=== PATIENT | male | born 1945 | race Caucasian/White ===

== ENCOUNTER → 2016-08-13 | Day surgery (SDC) | payer MEDICARE, OTHER ==
[2016-08-01 12:12] VITALS: BMI 29.0
[~2016-08-13] MED LIST: LACTATED RINGERS 1,000 ML IV SCH; PROPOFOL 10 MG/ML 20 ML VIAL IV ONE; SODIUM CHLORIDE 0.9% 1,000 ML BAG ONE; SODIUM CHLORIDE 0.9% 1,000 ML IV ONE
[2016-08-13 06:12] VITALS: TEMP 97.7
[2016-08-13 07:12] VITALS: PULSE 60
--- NOTE | 2016-08-13 08:39 | LTR ---
August 13, 2016 RE: Sarkis Waterman Dion Dear Dr. Jj; I had the pleasure of seeing . Sarkis Waterman in electrophysiology followup. Sarkis underwent DFT testing under anesthesia. His DFT is at or below 11 joules. His device is also reprogrammed appropriately. The device was interrogated. He had an episode of ventricular tachycardia where antitachycardia pacing failed and he lost consciousness. Subsequently, received an ICD shock which he does not remember. Therefore, I have started him on sotalol 80 mg twice daily and I would recommend noninvasive program stimulation to see if he has inducible VT. If he continues to have inducible VT on antiarrhythmic drug therapy, then VT ablation should be considered, especially since he had a syncopal spell associated with it. I spoke to the patient and to his and they are agreeable with the plan. I will also draw a TSH level on him today. Thank you for entrusting me with the care of your patient. Warm regards. Sincerely, KESHAWN GAMEZ MD
--- NOTE | 2016-08-13 09:07 | CE ---
DFT TESTING AND Bi-V ICD INTERROGATION AND REPROGRAMMING DATE OF SERVICE: Mr. Sarkis Waterman has a [employer] biventricular ICD, antigen [employer]-[id number]. He is brought in for DFT testing under anesthesia. Shock and T-wave protocol was used to induce ventricular fibrillation. This was adequately and appropriately detected at least sensitivity and successfully internally defibrillated with an 11 joule shock at first attempt. The charge time was 1.9 seconds, shocking impedance 38 ohms, initial lead polarity. The device was then reprogrammed according to the ( ) protocol. The device was initially interrogated. He had an episode of ventricular tachycardia at a cycle length of 313 beats a minute, which began with 6 to 7 beats which were ventricular tachycardia at a cycle length of about 310 to 320 ms. It was initiated by a short burst of nonsustained VT which is somewhat irregular. Antitachycardia pacing failed, in fact it accelerated it to a cycle length of 250 ms and then he received a 31 joule shock. He passed out at that time and does not remember this. His atrial RV and LV thresholds are within normal limits. The device was also reprogrammed with LV pacing first at -50 ms according to the ( ) recommendations. PLAN: Start sotalol 80 mg twice daily for suppression of ventricular tachycardia and noninvasive program stimulation in about a month and if he has inducible ventricular tachycardia, then VT ablation would be recommended. I discussed this with the patient as well as his .
[2016-08-13 10:09] VITALS: RESP 20
[2016-08-13 10:12] VITALS: BP 130/72
== END ==
LOC: CATHEP 05:52
PROVIDERS: ATTEND Internal Medicine Clinical Cardiac Electrophysiology
DX: I47.2 Ventricular tachycardia (principal); Z45.02 Encounter for adjustment and management of automatic implantable cardiac defibrillator; R55 Syncope and collapse; I25.5 Ischemic cardiomyopathy; I25.10 Atherosclerotic heart disease of native coronary artery without angina pectoris; I10 Essential (primary) hypertension; Z87.891 Personal history of nicotine dependence; Z98.61 Coronary angioplasty status; Z95.1 Presence of aortocoronary bypass graft; E78.5 Hyperlipidemia, unspecified; Z79.82 Long term (current) use of aspirin; Z79.899 Other long term (current) drug therapy
CPT/HCPCS: 93642; 84443; J2704

== ENCOUNTER → 2016-09-12 | Outpatient (CLI) | payer MEDICARE, OTHER ==
[2016-09-12 15:44] LABS: CH 32.3; CHCM 33.6; HCT 39.6 % (39.0-53.0); HDW 2.46; HGB 13.2 gm/dL (13.0-17.5); MCH 32.2 pg (25.0-35.0); MCHC 33.3 g/dL (31.0-37.0); MCV 96.7 fL (80.0-100.0); RDW 13.1 % (11.5-15.5); WBC 5.5 k/uL (3.8-10.6)
[2016-09-12 15:58] LABS: Anion Gap 9 mmol/L; Blood Urea Nitrogen 20 mg/dL (9-20); Carbon Dioxide 29 mmol/L (22-30); Chloride 105 mmol/L (98-107); Glucose 116 mg/dL (74-99); Non-African American GFR(MDRD) >60 (>60 ml/min/1.73 sqM); Potassium 4.5 mmol/L (3.5-5.1); Sodium 143 mmol/L (137-145)
== END | disposition home or self-care (01) ==
LOC: LABWHC1 15:12
PROVIDERS: ATTEND Internal Medicine Interventional Cardiology
DX: I25.10 Atherosclerotic heart disease of native coronary artery without angina pectoris (principal); I47.2 Ventricular tachycardia
CPT/HCPCS: 36415; 80048; 85027

== ENCOUNTER 2016-09-30 06:07 | Day surgery (SDC) | payer MEDICARE, OTHER ==
[2016-09-27 08:51] VITALS: BMI 29.4
[2016-09-30] MEDS ORDERED: SODIUM CHLORIDE 0.9% 1,000 ML IV SCH (06:09)
[2016-09-30] MEDS ORDERED: LACTATED RINGERS 1,000 ML IV SCH (06:09)
[2016-09-30 06:27] VITALS: RESP 16
[2016-09-30] MEDS ORDERED: LIDOCAINE 1% INJ 10MG/ML (20 ML MDV) ONE (07:13)
[2016-09-30] MEDS ORDERED: PROPOFOL 10 MG/ML 20 ML VIAL IV ONE (07:13)
[2016-09-30] MEDS ORDERED: MIDAZOLAM 2 MG/2 ML VIAL ONE (07:13)
[2016-09-30] MEDS ORDERED: PHENYLEPHRINE-0.9% NACL SYG 1 MG/10 ML SYRINGE ONE (07:13)
[2016-09-30] MEDS ORDERED: fentaNYL (PF) 50 MCG/ML 2 ML AMP ONE (07:13)
[2016-09-30 08:34] VITALS: TEMP 96.8
[2016-09-30 08:37] VITALS: PULSE 60
--- NOTE | 2016-09-30 09:13 | CE ---
DATE OF SERVICE: Mr. Waterman is a 71-year-old male patient who presented with recurrent episodes of ventricular tachycardia. He was started on sotalol 80 mg twice daily today. Today he was brought in for noninvasive program stimulation to see if he had inducible ventricular tachycardia. Under light conscious sedation, he underwent noninvasive program stimulation through the device. The device was interrogated. The original ventricular tachycardia was printed out for comparisons ( ) programed. The ( ) were reprogramed at first shock and the VT zone at 5 joules. The patient QRS was 198 milliseconds. QT was 532 milliseconds. Ventricular extrastimulation was performed up to double extrastimuli and the ventricular ART is 600/330/250 milliseconds and 450/310/250. No ventricular tachycardia was induced. No nonsustained VT was induced. Burst stimulation was performed from 450 down to 300 ms without induction of any VT. Patient tolerated the procedure well without any acute complications. His ICD was then reprogrammed. The first shock in the VT1 zone was reprogrammed to 11 joules. RESULT: 1. This patient with ischemic cardiomyopathy and exertion induced ventricular tachycardia now on sotalol 80 mg twice daily in addition to carvedilol. 2. Noninducible at program stimulation (noninvasive program stimulation) while on sotalol. No inducible VT for now. SUGGEST: 1. Continue sotalol, carvedilol and losartan. 2. Consider low dose spironolactone instead of Lasix and monitor potassium. 3. Patient's TSH is normal. If in the future, he has ( ) episodes of ventricular tachycardia, then VT ablation should be considered. MTDD
--- NOTE | 2016-09-30 09:17 | LTR ---
September 30, 2016 RE: Sarkis Waterman Dear Dr. Jj: I had the pleasure of seeing Mr. Sarkis Waterman in electrophysiology follow up. As you know. Mr. Waterman has ischemic cardiomyopathy with spontaneous exercise-induced ventricular tachycardia associated with dizziness. He was treated with sotalol 80 mg twice daily in addition to carvedilol and Losartan. He was brought in for noninvasive program stimulation via the device and he was noninducible for ventricular tachycardia, on sotalol 80 mg twice daily. His TSH is normal. At this time, I would suggest: 1. Continuing with sotalol. His blood pressure at home is around 110 mmHg systolic according to the patient. 2. If he has breakthrough episodes on sotalol, ablation for ventricular tachycardia should be considered. Thank you for entrusting me in the care of your patient. Warm regards, Sincerely, KESHAWN TAVERAS
[2016-09-30 10:17] VITALS: BP 106/65
--- NOTE | 2016-10-03 09:08 | CDI ---
Pt Name: Sarkis Waterman CONFIDENTIAL MR#: [id number] Adm Date: 09/30/2016 6:07:00 AM Printed:10/03/2016 Physician Documentation Request Page 1 of 2 ICD-10-CM Ready Physicians Documentation Request Patient: Sarkis Waterman EPI: [id number] Account: [id number] Payer: MEDICARE Facility: [facility] Location: - Admit Date: 09/30/2016 6:07:00 AM Query Send By: Shabnam Gayle Phone #: Ext. Communication Date: 10/03/2016 9:02:00 AM Clarification Outpatient By submitting this query, we are merely seeking further clarification of documentation to accurately reflect all conditions that you are monitoring, evaluating, treating or that extend the hospitalization or utilize additional resources of care. Please utilize your independent clinical judgment when addressing the question(s) below. Dear Doctor Mark Napier, The patients Clinical Indicators include: see below Documentation Clarification OP Per your procedure note, Light Conscious Sedation is documented. The Anesthesia Record, however, has MAC checked off under technique. This is conflicting documentation that needs clarification for proper reporting purposes. Please clarify if the anesthesia provided was Conscious/Moderate Sedation or other? Please document this clarification on an addendum to the procedure note. PLEASE DOCUMENT ANY ADDITIONAL DIAGNOSES AND/OR SPECIFICITY IN THE PROGRESS NOTES AND/OR DISCHARGE SUMMARY. Agreed & documented Unable to determine/unknown Disagree with the above request Need to discuss MTDD
--- NOTE | 2016-10-21 20:56 | CDI ---
Pt Name: Sarkis Waterman CONFIDENTIAL MR#: [id number] Adm Date: 09/30/2016 6:07:00 AM Printed:10/21/2016 Physician Documentation Request Page 2 of 2 ICD-10-CM Ready Physicians Documentation Request Patient: Sarkis Waterman EPI: [id number] Account: [id number] Payer: MEDICARE Facility: [facility] Location: - Admit Date: 09/30/2016 6:07:00 AM Query Send By: Shabnam Gayle Phone #: Ext. Communication Date: 10/21/2016 8:54:00 PM Clarification Outpatient By submitting this query, we are merely seeking further clarification of documentation to accurately reflect all conditions that you are monitoring, evaluating, treating or that extend the hospitalization or utilize additional resources of care. Please utilize your independent clinical judgment when addressing the question(s) below. Dear Doctor Mark Napier, The patients Clinical Indicators include: see below Documentation Clarification OP Per your procedure note, Light Conscious Sedation is documented. The Anesthesia Record, however, has MAC checked off under technique. This is conflicting documentation that needs clarification for proper reporting and coding purposes. Please clarify if the anesthesia provided was Conscious/Moderate Sedation or something else. If so, what? Please document this clarification on an addendum to the procedure note. PLEASE DOCUMENT ANY ADDITIONAL DIAGNOSES AND/OR SPECIFICITY IN THE PROGRESS NOTES AND/OR DISCHARGE SUMMARY. Agreed & documented Unable to determine/unknown Disagree with the above request Need to discuss MTDD
--- NOTE | 2016-11-01 11:40 | CE ---
ADDENDUM TO CARDIAC PROCEDURE NOTE: MAC sedation by anesthesia was not light conscious sedation.
== END 2016-09-30 10:35 | disposition home or self-care (01) ==
LOC: CATHEP 06:07
PROVIDERS: ATTEND Internal Medicine Clinical Cardiac Electrophysiology
DX: I47.2 Ventricular tachycardia (principal); I25.5 Ischemic cardiomyopathy; I10 Essential (primary) hypertension; Z95.810 Presence of automatic (implantable) cardiac defibrillator; E78.00 Pure hypercholesterolemia, unspecified; E78.5 Hyperlipidemia, unspecified; I25.10 Atherosclerotic heart disease of native coronary artery without angina pectoris; Z98.61 Coronary angioplasty status; Z95.1 Presence of aortocoronary bypass graft; I25.2 Old myocardial infarction; Z79.82 Long term (current) use of aspirin; Z79.899 Other long term (current) drug therapy; Z87.891 Personal history of nicotine dependence
CPT/HCPCS: 93642; J2250; J2001; J3010; J2370; J2704

== ENCOUNTER → 2017-09-18 | Outpatient (CLI) | payer MEDICARE, OTHER ==
[2017-09-17 11:58] VITALS: BMI 28.5
[2017-09-18 11:37] VITALS: BP 154/74; PULSE 62; RESP 18; TEMP 98.3
--- NOTE | 2017-09-18 12:25 | P.CONS ---
History of Present Illness - Reason for Consult Consult date: 09/18/17 - History of Present Illness 72 years old male with a chronic history of severe neck pain started 5 years ago , he denies any initiating event, and he reported that he was evaluated by Dr. Emeka DO , and he did interventional pain management for him diagnostic medial branch block 2 C2-3 /C3-4 /C4-5 , on 2 different occasions and he get excellent pain relief, and he was referred to [facility] pain clinic to have radiofrequency ablation of the medial paracervical area because patient had AICD , because the anesthesiologist at the surgical Center refused to have it done ,at outpatient surgical center , patient already familiar with the procedure, Dr. Hendrickson explained to him about the risk and benefits of the procedure, and patient willing to proceed Past Medical History Past Medical History: Coronary Artery Disease (CAD), Cancer, Heart Failure, Hyperlipidemia, Hypertension, Myocardial Infarction (PR), Osteoarthritis (OA), Pneumonia Additional Past Medical History / Comment(s): arrythmia(past epidodes v-tach), PR X2. HX past bladder cancer. POS hiatal hernia. CHRONIC CERVICAL PAIN. AICD/ PACER - [employer]. Last Myocardial Infarction Date:: 1994 History of Any Multi-Drug Resistant Organisms: None Reported Past Surgical History: AICD, Back Surgery, Cardiac Ablation, Coronary Bypass/ CABG, Orthopedic Surgery, Pacemaker Additional Past Surgical History / Comment(s): tumor removed from bladder, ep study, past cardioversion/ ablation X2 - LAST 06/2017. DB CABG 1985. tube lt ear 2007, lt rotator cuff sx, pilonidal cyst removed, letty knee arthroscopy Past Anesthesia/Blood Transfusion Reactions: No Reported Reaction Type of Cardiac Device: AICD Device Placement Date:: 04/2013 - [employer] Smoking Status: Former smoker - Past Family History Mother Family Medical History: Cancer Additional Family Medical History / Comment(s): breast cancer Father Family Medical History: Myocardial Infarction (PR) Additional Family Medical History / Comment(s): age 46 from [place] ( 4 months beofre pt was born) Medications and Allergies Home Medications Medication Instructions Recorded Confirmed Type Ascorbic Acid [Vitamin C] 500 mg PO DAILY 03/10/16 09/18/17 History Aspirin 162 mg PO HS 03/10/16 09/18/17 History Atorvastatin [Lipitor] 40 mg PO HS 03/10/16 09/18/17 History Calcium/Magnesium/Zinc 1 tab PO DAILY 03/10/16 09/18/17 History [Rwyaxwt-Hwsjehysr-Bkch Tablet] Carvedilol [Coreg] 6.25 mg PO BID 03/10/16 09/18/17 History Furosemide [Lasix] 20 mg PO DAILY 03/10/16 09/18/17 History Gabapentin [Neurontin] 400 mg PO TID 03/10/16 09/18/17 History Losartan [Cozaar] 25 mg PO DAILY 03/10/16 09/18/17 History Ubidecarenone [Co Q-10] 100 mg PO DAILY 03/10/16 09/18/17 History Acetaminophen [Tylenol] 325 - 500 mg PO Q4H PRN 08/01/16 09/18/17 History Vitamin B Complex 1 cap PO DAILY 08/01/16 09/18/17 History Isosorbide Mononitrate ER [Imdur] 30 mg PO DAILY tab.er.24h 06/06/17 09/18/17 Rx B Complex-Vit C-Vit E-Zinc [Z-Bec] 1 tab PO DAILY 09/17/17 09/18/17 History Allergies Allergy/AdvReac Type Severity Reaction Status Date / Time No Known Allergies Allergy Verified 09/18/17 11:26 Physical Exam Vitals: Vital Signs Temp Pulse Resp BP 09/18/17 11:30 98.3 F 62 18 154/74 Intake and Output 09/17/17 09/18/17 09/18/17 22:59 06:59 14:59 Other: Weight 92.986 kg Patient Weight 09/19/17 06:59 Weight 92.986 kg Social history : not smoker , NO ETOH , NO Illegal drugs use Physical Examinations : 1-Constitutional : Cooperative , not in acute distress . 2-HEENT : nech ; supple , no Lymphadenopathy , no Thyromegaly , :eyes , no icterus, no photophobia . ENT : , normal oropharynx , no Thrush 3- Respiratory : Chest clear to auscultations Bilaterally , no wheezing . 4- Cardiovascular : regular rate and rhythem , S1 , S2 , no S3 , no S4. 5- Gastrointestinal: abdomen soft no tenderness , no organomegally . 6- Genitourinary : Defferred . 7-Integumentary : No cellulitis , no ulcers , normal skin turgor , no cyanotic . 8- neurologic : Cranial nerve II to XII intact , no focal neurological deffecit 9-psychatric : alert , oriented X 3 , appropriate affect , intact judgment and insight . 10-Lymphatic : no Lymphadenopathy. 11- musculoskeltal: normal gait Cervical Spine motor stregnth in the deltoid and biceps, normal right side , normal Left side motor stregnth biceps and the wrist extensors normal right side ,normal left side . motor stregnth in the triceps muscle . normal Right side , normal Left side deep tendon reflexes normal at the biceps , normal at Brachioradialis , normal at triceps. positive cervical facet loading test . Lumber spine moter stegnth lower extremities ,thigh and legs 5/5 Right side , 5/5 Left side Assessment and Plan Plan: Assessment and plan= chronic severe neck pain secondary to cervical spondylosis patient had a good result after diagnostic medial branch block He had more than 70% decrease in his pain level on 2 different occasions , He will be scheduled to have radiofrequency ablation medial branch cervical area C2 3/C3 4/C4 5 , will start from the left side,and later on will do the right side , procedure risks and benefits and alternatives discussed with the patient he agreed with the preceding Time with Patient: Less than 30
== END | disposition home or self-care (01) ==
LOC: PNWHC3 11:12
PROVIDERS: ATTEND Specialist
DX: G89.29 Other chronic pain (principal); M54.2 Cervicalgia; M47.812 Spondylosis without myelopathy or radiculopathy, cervical region; I21.9 Acute myocardial infarction, unspecified; I10 Essential (primary) hypertension; E78.5 Hyperlipidemia, unspecified; I50.9 Heart failure, unspecified; Z79.899 Other long term (current) drug therapy; Z79.82 Long term (current) use of aspirin; Z87.891 Personal history of nicotine dependence
CPT/HCPCS: 99211

== ENCOUNTER → 2017-10-23 | Day surgery (SDC) | payer MEDICARE, OTHER ==
[2017-10-20 10:27] VITALS: BMI 29.0
[~2017-10-23] MED LIST changes: +IV FLUID CONTINUATION 1,000 ML IV ONE; +LACTATED RINGERS 1,000 ML IV ONE; +LIDOCAINE 1% 20 ML VIAL (10MG/ML) FOR IV START INTRADERMA ONE; -PROPOFOL 10 MG/ML 20 ML VIAL IV ONE; -SODIUM CHLORIDE 0.9% 1,000 ML BAG ONE; -SODIUM CHLORIDE 0.9% 1,000 ML IV ONE
[2017-10-23 08:45] VITALS: RESP 16; TEMP 97.8
--- NOTE | 2017-10-23 09:58 | FL ---
Fluoroscopy INDICATION: Pain FINDINGS: Fluoroscopy time: 15 seconds. Images obtained: 3. IMPRESSIONS: 1. Documentation of fluoroscopy.
[2017-10-23 10:01] VITALS: PULSE 60
[2017-10-23 10:16] VITALS: BP 110/66
--- NOTE | 2017-10-28 10:32 | P.PCN ---
Date of Procedure: 10/23/17 Surgeon: Clark Camp Pathology: none sent Condition: stable Disposition: PACU Description of Procedure: PREOPERATIVE DIAGNOSIS: Cervical spondylosis without myelopathy and facet arthropathy. POSTOPERATIVE DIAGNOSIS: Cervical spondylosis without myelopathy and facet arthropathy. PROCEDURES: Radiofrequency thermocoagulation, C2-C3, C3-C4, C4-C5 medial branch , with fluoroscopic guidance, left side. ANESTHESIA: Local with 1% lidocaine; conscious sedation EBL: Minimal PROCEDURE INDICATION: The patient with neck pain secondary to cervical arthropathy who had more than 50% relief of her pain with previous diagnostic cervical medial branch block. No use of blood thinners. Patient has had two cervical MBBs done by Dr. Hendrickson with relief, presents today for cervical RFA , to be done in hospital due to patient's pacer/AICD, whose antitachycardia function was deactivated with a magnet prior to beginning procedure. PROCEDURE DESCRIPTION / TECHNIQUE: The patient was seen and identified in the preoperative area. Risks, benefits, complications, and alternatives were discussed with the patient (with risks including but not limited to bleeding, infection, nerve damage, incomplete pain relief, and allergic reactions to medications), the patient agreed to proceed with the procedure and signed the informed consent after all questions were answered. IV was started. Vital signs remained stable throughout the procedure. Patient was taken to the OR and time out was completed. The patient was placed in the prone position on the procedure table. A pillow was placed under the patients chest to increase the cervical interlaminar space. The cervical area was prepped and draped in the usual sterile fashion. Critical pause was taken. Vital signs were closely monitored during the procedure. Conscious sedation was used during the procedure to decrease patients anxiety. Using cross-table lateral fluoroscopy, the centroid of the trapezoid of C2, C3, C4, and C5 were identified, marked, and localized with 1% lidocaine. Subsequently, a 20 gauge 100-mm radiofrequency cannula with a 5-mm active tip was advanced guided by fluoroscopy to the centroid of the trapezoid of C2, C3, and C4. Needle tip position was confirmed at the centroid of the trapezoids of all three sites with anteroposterior fluoroscopy. Each site then underwent sensory testing at 50 Hz and 0 to 1 volt and motor testing at 2 Hz and 0 to 3 volt with local stimulation, but no radicular symptoms down the arm. Thereafter all three sites underwent radiofrequency thermocoagulation at 80 degrees celsius for 90 seconds after injecting 0.5 ml of PF lidocaine 1%. After thermocoagulation, 1 ml of the block solution containing Kenalog 40 mg and 2 mL of preservative-free normal saline was injected at all three levels after negative aspiration of CSF and blood and with no paresthesias. Cannulas were retracted while injecting lidocaine 1% until the needle is out. Skin was cleansed and bandages were applied. COMPLICATIONS: No acute complications. COMMENTS: DISPOSITION / PLANS: The patient was placed in a supine position and transferred to the recovery area in a stable condition for observation and was discharged from the recovery room after meeting discharge criteria. Home discharge instructions given to the patient by the staff. The patient was reexamined prior to discharge and there were no issues. The patient will schedule a right cervical RFA next.
== END ==
LOC: ORPAIN 08:06
PROVIDERS: ATTEND Anesthesiology
DX: M47.812 Spondylosis without myelopathy or radiculopathy, cervical region (principal); Z79.899 Other long term (current) drug therapy; Z95.810 Presence of automatic (implantable) cardiac defibrillator; I10 Essential (primary) hypertension; I25.2 Old myocardial infarction; Z95.1 Presence of aortocoronary bypass graft
CPT/HCPCS: 64633; 64634; J2250; J1100; J3010; G0463; 99152; 99153

== ENCOUNTER 2017-11-24 09:01 | Day surgery (SDC) | payer MEDICARE, OTHER ==
[2017-11-18 08:27] VITALS: BMI 29.0
[2017-11-24 10:11] VITALS: RESP 16; TEMP 97.7
[2017-11-24] MEDS ORDERED: LACTATED RINGERS 1,000 ML IV ONE ×2 (10:11→11:04)
[2017-11-24] MEDS ORDERED: LIDOCAINE 1% 20 ML VIAL (10MG/ML) FOR IV START INTRADERMA ONE (10:12)
--- NOTE | 2017-11-24 11:01 | P.PCN ---
Date of Procedure: 11/24/17 Surgeon: Clark Camp Pathology: none sent Condition: stable Disposition: PACU Description of Procedure: PREOPERATIVE DIAGNOSIS: Cervical spondylosis without myelopathy and facet arthropathy. POSTOPERATIVE DIAGNOSIS: Cervical spondylosis without myelopathy and facet arthropathy. PROCEDURES: Radiofrequency thermocoagulation, C2-C3, C3-C4, C4-C5 medial branch , with fluoroscopic guidance, right side. ANESTHESIA: Local with 1% lidocaine; conscious sedation EBL: Minimal PROCEDURE INDICATION: The patient with neck pain secondary to cervical arthropathy who had more than 50% relief of her pain with previous diagnostic cervical medial branch block. No use of blood thinners. Patient has had two cervical MBBs done by Dr. Hendrickson with relief, presents today for cervical RFA on right side after good relief from left side; this procedure is to be done in hospital due to patient's pacer/AICD, whose antitachycardia function was deactivated with a magnet prior to beginning procedure. PROCEDURE DESCRIPTION / TECHNIQUE: The patient was seen and identified in the preoperative area. Risks, benefits, complications, and alternatives were discussed with the patient (with risks including but not limited to bleeding, infection, nerve damage, incomplete pain relief, and allergic reactions to medications), the patient agreed to proceed with the procedure and signed the informed consent after all questions were answered. IV was started. Vital signs remained stable throughout the procedure. Patient was taken to the OR and time out was completed. The patient was placed in the prone position on the procedure table. A pillow was placed under the patients chest to increase the cervical interlaminar space. The cervical area was prepped and draped in the usual sterile fashion. Critical pause was taken. Vital signs were closely monitored during the procedure. Conscious sedation was used during the procedure to decrease patients anxiety. Using cross-table lateral fluoroscopy, the centroid of the trapezoid of C2, C3, C4, and C5 were identified, marked, and localized with 1% lidocaine. Subsequently, a 21 gauge 100-mm radiofrequency cannula with a 5-mm active tip was advanced guided by fluoroscopy to the centroid of the trapezoid of C2, C3, and C4. Needle tip position was confirmed at the centroid of the trapezoids of all three sites with anteroposterior fluoroscopy. Each site then underwent sensory testing at 50 Hz and 0 to 1 volt and motor testing at 2 Hz and 0 to 3 volt with local stimulation, but no radicular symptoms down the arm. Thereafter all three sites underwent radiofrequency thermocoagulation at 80 degrees celsius for 90 seconds after injecting 0.5 ml of PF lidocaine 1%. After thermocoagulation, 0.75 ml of the block solution containing Decadron 10 mg and 1 mL of preservative-free normal saline was injected at all three levels after negative aspiration of CSF and blood and with no paresthesias. Cannulas were retracted while injecting lidocaine 1% until the needle is out. Skin was cleansed and bandages were applied. COMPLICATIONS: No acute complications. COMMENTS: DISPOSITION / PLANS: The patient was placed in a supine position and transferred to the recovery area in a stable condition for observation and was discharged from the recovery room after meeting discharge criteria. Home discharge instructions given to the patient by the staff. The patient was reexamined prior to discharge and there were no issues. The patient will follow up with Dr. Hendrickson and return to our clinic as needed in the future.
[2017-11-24 11:07] VITALS: PULSE 60
--- NOTE | 2017-11-24 11:28 | FL ---
EXAMINATION TYPE: FL guided pain mgmt statistic DATE OF EXAM: 11/24/2017 FLUOROSCOPY Fluoroscopy time of 11 seconds was used during cervical RF ablation. 2 image/s document/s the proced ure.
[2017-11-24 11:32] VITALS: BP 129/68
== END 2017-11-24 11:41 | disposition home or self-care (01) ==
LOC: ORPAIN 09:01
PROVIDERS: ATTEND Anesthesiology
DX: M47.812 Spondylosis without myelopathy or radiculopathy, cervical region (principal); Z95.810 Presence of automatic (implantable) cardiac defibrillator; E78.5 Hyperlipidemia, unspecified; I11.0 Hypertensive heart disease with heart failure; I50.9 Heart failure, unspecified
CPT/HCPCS: 64633; 64634; J2250; J1100; J3010; 99152

== ENCOUNTER → 2018-08-24 | Outpatient (CLI) | payer MEDICARE, OTHER ==
[2018-08-24 13:48] VITALS: BP 153/87; PULSE 60; RESP 16
--- NOTE | 2018-08-24 14:22 | P.PN ---
Subjective Progress Note Date: 08/24/18 This is a follow-up visit for this 73-year-old man with a chronic history of severe neck pain, diagnosed with cervical spondylosis, cervical facet arthropathy, patient had diagnostic medial [facility] block [facility], and he was referred to [facility] pain clinic to have radiofrequency ablation of the medial branch cervical area, which was done in October 2017, patient had excellent pain relief after the radiofrequency ablation which lasted 10 months, and the pain came back and he is here today to have repeat radiofrequency ablation of the medial branch cervical area, patient denies any motor or sensory deficits he denies any fever or night sweats he denies any change in the bowel movement or urination, Objective - Vital Signs Vital signs: Vital Signs Temp Pulse 60 08/24/18 13:42 Resp 16 08/24/18 13:42 BP 153/87 08/24/18 13:42 Pulse Ox 99 08/24/18 13:42 Intake & Output 08/23/18 08/24/18 08/24/18 18:59 06:59 18:59 Weight 92.986 kg - Exam Physical Examinations : 1-Constitutiona : Cooperative , not in acute distress . 2-HEENT : nech ; supple , no Lymphadenopathy , normal thyroid size . eyes : no ptosis , no icterus, no photophobia . ENT : normal of hearing , normal oropharynx , no Thrush . 3- Respiratory : Chest clear to auscultations Bilaterally , no wheezing , no Rhonchi . 4- Cardiovascular : regular rate and rhythem , S1 , S2 , no S3 , no S4. 5- Gastrointestinal : abdomen soft no tenderness , bowel sounds , no organomegally . 6- Genitourinary : Defferred . 7- neurologic : Cranial nerve II to XII intact , no focal neurological deffecit . 8-psychatric : alert , oriented X 3 , appropriate affect , intact judgment and insight . 9-Lymphatic : no Lymphadenopathy . 10- musculoskeltal : Cervical Spine motor stregnth in the deltoid and biceps, normal right side , normal Left side motor stregnth biceps and the wrist extensors normal right side ,normal left side . motor stregnth in the triceps muscle . normal Right side , normal Left side deep tendon reflexes normal at the biceps , normal at Brachioradialis , normal at triceps. positive cervical facet loading test . Lumber spine moter stegnth lower extremities , thigh and legs 5/5 Right side , 5/5 Left side Assessment and Plan Plan: Assessment and plan= chronic low back pain secondary to, cervical spondylosis with lumbar facet arthropathy . Patient had excellent pain relief after the radiofrequency ablation of the medial branch cervical area, and he will be good candidate to have radiofrequency ablation of the medial branch cervical C2-C3/C3-4/C4 5 , we will start on the left side first and with her parents and later on , patient had AICD , and we need to place a magnet over the device Procedure risk and benefits and alternatives discussed with the patient he agreed with proceeding. - PQRS measures = - Patient's medications are documented in the chart. -Tobacco use is negative and counseling.Given. -Patient's has not received pneumococcal vaccine. -Advanced care planning discussed, patient not eligible. -Opiate contract not signed.( Patient is not using any opioid ) -Pain positive and follow-up visit/procedure is scheduled. -Patient's blood pressure measured [153/87 ] , and documented in the record ,and patient will follow up with the primary care. -Patient's weight was measured and body mass index [29.4 ] above the, and counseling was done. and patient instructed to follow-up with the primary care physician. -Patient was not identified as an unhealthy alcohol user , Time with Patient: Less than 30
== END | disposition home or self-care (01) ==
LOC: PNWHC3 13:11
PROVIDERS: ATTEND Specialist
DX: G89.29 Other chronic pain (principal); M47.812 Spondylosis without myelopathy or radiculopathy, cervical region; M46.96 Unspecified inflammatory spondylopathy, lumbar region; Z98.890 Other specified postprocedural states
CPT/HCPCS: 99211

== ENCOUNTER → 2018-09-16 | Outpatient (CLI) | payer MEDICARE, OTHER ==
--- NOTE | 2018-09-16 10:32 | CT ---
EXAMINATION TYPE: CT brain wo/w con DATE OF EXAM: 09/16/2018 COMPARISON: 12/13/2012 INDICATION: Visual field defect-right side DLP: 2756 mGycm, Automated exposure control for dose reduction was used. CONTRAST: 100 mL Isovue-300 CT of the brain is performed utilizing 3 mm thick sections through the posterior fossa and 3 mm thick sections through the remaining calvarium. Study is performed within 24 hours of arrival to the hosp [facility]. No abnormal hyperdensity is present to suggest an acute intracranial hemorrhage. There is a stable appearance to the calcified rounded density within the right frontal region. Slight diminished density is within the adjacent brain. This area measures 0.3 x 1.9 cm. Findings may be be related to a stable meningioma. No acute infarcts are evident. There is low density surrounding the calcified mass. This is likely so me edema which is slightly more prominent than the comparison study. Ventricles and sulci are appropriate for the patient age. Paranasal sinuses and mastoid air cells within the [id number] are clear. Suspicious enhancement is not identified. IMPRESSIONS: 1. Stable size of a calcified mass right frontal region. 2. Some edema within the adjacent brain is likely present. This appears increased from the comparison study. Consider MRI for additional evaluation.
--- NOTE | 2018-09-16 13:39 | CT ---
EXAMINATION TYPE: CT orbits wo/w con DATE OF EXAM: 09/16/2018 COMPARISON: None HISTORY: Visual field defect-right side CT DLP: 378.26 mGycm Automated exposure control for dose reduction was used. CONTRAST: Performed without and with IV Contrast, patient injected with 100 ml mL of Isovue 300. FINDINGS: Mucosal thickenings within the right maxillary sinus. Left maxillary sinus is patent. Sphenoid sinuse s are clear. Some minimal mucosal thickening is within right ethmoid air cells. The frontal sinuses a re clear. Mastoid air cells are clear. Maxillary spine is intact. Nasal bones are intact. Greater wings of sphenoid are normal. Zygomatic ar ches are intact. The globes are symmetrical. Optic nerves appear unremarkable. Extraocular muscles as visualized are n ormal. Intraconal and extraconal fat appears unremarkable. No suspicious enhancement is evident. IMPRESSION: NORMAL PRE AND POSTCONTRAST CT ORBITS.
== END | disposition home or self-care (01) ==
LOC: RADXRMAIN 08:02
PROVIDERS: ATTEND Ophthalmology
DX: H53.483 Generalized contraction of visual field, bilateral (principal)
CPT/HCPCS: 82565; 84520; 70470; 70482; 36415; Q9967

== ENCOUNTER 2018-11-30 08:05 | Day surgery (SDC) | payer MEDICARE, OTHER ==
[2018-11-25 15:00] VITALS: BMI 29.4
[~2018-11-30 08:05] MED LIST changes: -IV FLUID CONTINUATION 1,000 ML IV ONE; -LACTATED RINGERS 1,000 ML IV ONE; -LIDOCAINE 1% 20 ML VIAL (10MG/ML) FOR IV START INTRADERMA ONE
[2018-11-30 08:26] LABS: Glucose,Whole Blood 102 mg/dL (75-99)
[2018-11-30 08:28] VITALS: TEMP 96.9
--- NOTE | 2018-11-30 09:12 | P.PCN ---
Date of Procedure: 11/30/18 Procedure(s) Performed: PREOPERATIVE DIAGNOSIS: Cervical spondylosis without myelopathy and facet arthropathy. POSTOPERATIVE DIAGNOSIS: Cervical spondylosis without myelopathy and facet arthropathy. PROCEDURES: Radiofrequency thermocoagulation, C2-C3, C3-C4, C4-C5 medial branch, with fluoroscopic guidance, left side. ANESTHESIA: Moderate sedation with Versed 2 mg, and fentanyl 100 g intravenously. EBL: Minimal PROCEDURE INDICATION: The patient with neck pain secondary to cervical arthropathy who had more than 50% relief of her pain with previous diagnostic cervical medial branch block. No use of blood thinners. Patient has had radi ofrequency ablation of the medial branch cervical area, and had excellent pain relief which is lasted more than 6 months,he presents today for repeate cervical RFA, patient's had pacer/AICD, whose antitachycardia function was deactivated with a magnet prior to beginning procedure. PROCEDURE DESCRIPTION / TECHNIQUE: The patient was seen and identified in the preoperative area. Risks, benefits, complications, and alternatives were discussed with the patient (with risks including but not limited to bleeding, infection, nerve damage, incomplete pain relief, and allergic reactions to medications), the patient agreed to proceed with the procedure and signed the informed consent after all questions were answered. IV was started. Vital signs remained stable throughout the procedure. Patient was taken to the OR and time out was completed. The patient was placed in the prone position on the procedure table. A pillow was placed under the patients chest to increase the cervical interlaminar space. The cervical area was prepped and draped in the usual sterile fashion. Critical pause was taken. Vital signs were closely monitored during the procedure. Conscious sedation was used during the procedure to decrease patients anxiety. Using cross-table lateral fluoroscopy, the centroid of the trapezoid of left C2, C3, C4, were identified, marked, and localized with 1% lidocaine. Subseq uently, a 20 gauge 100-mm radiofrequency cannula with a 5-mm active tip was advanced guided by fluoroscopy to the centroid of the trapezoid of left C2, C3, and C4. Needle tip position was confirmed at the centroid of the trapezoids of all three sites with anteroposterior fluoroscopy. Each site then underwent sensory testing at 50 Hz and 0 to 1 volt and motor testing at 2 Hz and 0 to 3 volt with local stimulation, but no radicular symptoms down the arm. Thereafter all three sites underwent radiofrequency thermocoagulation at 80 degrees celsius for 90 seconds after injecting 0.5 ml of PF lidocaine 1%. After thermocoagulation, 1 ml of the block solution containing Depo-Medrol 40 mg and 2 mL of preservative-free normal saline was injected at all three levels after negative aspiration of CSF and blood and with no paresthesias. Cannulas were retracted while injecting lidocaine 1% until the needle is out. Skin was cleansed and bandages were applied. note = magnet applied over the location of the AICD, before we do any testing and before with the radiofrequency, and a magnet removed after the radiofrequency was done COMPLICATIONS: No acute complications. DISPOSITION / PLANS: The patient was placed in a supine position and transferred to the recovery area in a stable condition for observation and was discharged from the recovery room after meeting discharge criteria. Home dischar ge instructions given to the patient by the staff. The patient was reexamined prior to discharge and there were no issues. The patient will schedule a right cervical RFA next.
[2018-11-30 09:14] VITALS: RESP 16
--- NOTE | 2018-11-30 09:19 | FL ---
Fluoroscopy INDICATION: Pain FINDINGS: Fluoroscopy time: 8 seconds. Images obtained: 2. IMPRESSIONS: 1. Documentation of fluoroscopy.
[2018-11-30 09:44] VITALS: BP 132/75; PULSE 60
[2018-11-30] MEDS ORDERED: IV FLUID CONTINUATION 1,000 ML IV ONE (09:59)
== END 2018-11-30 10:03 | disposition home or self-care (01) ==
LOC: ORPAIN 08:05
PROVIDERS: ATTEND Specialist
DX: M47.812 Spondylosis without myelopathy or radiculopathy, cervical region (principal); I11.0 Hypertensive heart disease with heart failure; I50.9 Heart failure, unspecified; I25.10 Atherosclerotic heart disease of native coronary artery without angina pectoris; Z95.810 Presence of automatic (implantable) cardiac defibrillator
CPT/HCPCS: 64633; 64634 ×2; J2250; J1030; J3010; 99152

== ENCOUNTER 2018-12-28 07:45 | Day surgery (SDC) | payer MEDICARE, OTHER ==
[2018-12-25 08:48] VITALS: BMI 29.1
[2018-12-28 08:10] VITALS: PULSE 60; RESP 16; TEMP 97.3
[2018-12-28] MEDS ORDERED: LIDOCAINE 1% 20 ML VIAL (10MG/ML) FOR IV START INTRADERMA ONE (08:19)
--- NOTE | 2018-12-28 09:40 | P.PCN ---
Date of Procedure: 12/28/18 Procedure(s) Performed: PREOPERATIVE DIAGNOSIS: Cervical spondylosis without myelopathy and facet arthropathy. POSTOPERATIVE DIAGNOSIS: Cervical spondylosis without myelopathy and facet arthropathy. PROCEDURES: Radiofrequency thermocoagulation, C2-C3, C3-C4, C4-C5 medial branch, with fluoroscopic guidance, Right side. ANESTHESIA: Moderate sedation with Versed 2 mg, and fentanyl 50 g intravenously. EBL: Minimal PROCEDURE INDICATION: The patient with neck pain secondary to cervical arthropathy who had more than 50% relief of her pain with previous diagnostic cervical medial branch block. No use of blood thinners. Patient has had ra diofrequency ablation of the medial branch cervical area, and had excellent pain relief which is lasted more than 6 months,he presents today for repeate cervical RFA, patient's had pacer/AICD, whose antitachycardia function was deactivated with a magnet prior to beginning procedure. PROCEDURE DESCRIPTION / TECHNIQUE: The patient was seen and identified in the preoperative area. Risks, benefits, complications, and alternatives were discussed with the patient (with risks including but not limited to bleeding, infection, nerve damage, incomplete pain relief, and allergic reactions to medications), the patient agreed to proceed with the procedure and signed the informed consent after all questions were answered. IV was started. Vital signs remained stable throughout the procedure. Patient was taken to the OR and time out was completed. The patient was placed in the prone position on the procedure table. A pillow was placed under the patients chest to increase the cervical interlaminar space. The cervical area was prepped and draped in the usual sterile fashion. Critical pause was taken. Vital signs were closely monitored during the procedure. Conscious sedation was used during the procedure to decrease patients anxiety. Using cross-table lateral fluoroscopy, the centroid of the trapezoid of Right C2, C3, C4, were identified, marked, and localized with 1% lidocaine. Sub sequently, a 20 gauge 100-mm radiofrequency cannula with a 5-mm active tip was advanced guided by fluoroscopy to the centroid of the trapezoid of Right C2, C3, and C4. Needle tip position was confirmed at the centroid of the trapezoids of all three sites with anteroposterior fluoroscopy. Each site then underwent sensory testing at 50 Hz and 0 to 1 volt and motor testing at 2 Hz and 0 to 3 volt with local stimulation, but no radicular symptoms down the arm. Thereafter all three sites underwent radiofrequency thermocoagulation at 80 degrees celsius for 90 seconds after injecting 0.5 ml of PF lidocaine 1%. After thermocoagulation, 1 ml of the block solution containing Depo-Medrol 40 mg and 2 mL of preservative-free normal saline was injected at all three levels after negative aspiration of CSF and blood and with no paresthesias. Cannulas were retracted while injecting lidocaine 1% until the needle is out. Skin was cleansed and bandages were applied. note = magnet applied over the location of the AICD, before we do any testing and before with the radiofrequency, and a magnet removed after the radiofrequency was done COMPLICATIONS: No acute complications. DISPOSITION / PLANS: The patient was placed in a supine position and transferred to the recovery area in a stable condition for observation and was discharged from the recovery room after meeting discharge criteria. Home dis charge instructions given to the patient by the staff. The patient was reexamined prior to discharge and there were no issues.
--- NOTE | 2018-12-28 09:45 | FL ---
EXAMINATION TYPE: FL guided pain mgmt statistic DATE OF EXAM: 12/28/2018 HISTORY: Flouroscopy time 13 seconds of fluoroscopy provided. IMPRESSION: 1. Fluoroscopy time.
[2018-12-28 09:47] VITALS: BP 133/75
[2018-12-28] MEDS ORDERED: IV FLUID CONTINUATION 1,000 ML IV ONE (10:17)
== END 2018-12-28 10:20 | disposition home or self-care (01) ==
LOC: ORPAIN 07:45
PROVIDERS: ATTEND Specialist
DX: M47.812 Spondylosis without myelopathy or radiculopathy, cervical region (principal); M12.88 Other specific arthropathies, not elsewhere classified, other specified site; I10 Essential (primary) hypertension; Z95.0 Presence of cardiac pacemaker
CPT/HCPCS: 93005; 64633; 64634; J2250; J1030; J3010; 99152; 99153

== ENCOUNTER → 2019-01-12 | Outpatient (CLI) | payer MEDICARE, OTHER ==
--- NOTE | 2019-01-12 14:10 | P.PAINPG ---
Subjective Progress Note Date: 01/12/19 Sarkis is a 73-year-old gentleman presented today for follow-up. He is status post radiofrequency ablation cervical spine bilaterally. He reports that his pain significantly improved after the ablations. This is the second time is have them done. He reports a right-sided neck is about 100% relief. He reports a left-sided he still has a small brisket puller the trapezius muscle on the left side which is nontender to palpation but he feels that when he turns his neck to the right. He reports is significantly improved except for the small area. He also has a couple other areas of pain across his low back and across his right shoulder blade. He reports these are chronic issues. Has a history of taking space was placed for spinal stenosis in the past. He reports that his pain might be getting worse because he weaned off his gabapentin over the past couple months. He used to take 400 mg 3 times per day and weaned off of the medication. He denies any other major symptoms. Objective - Vital Signs Vital signs: Vital Signs Temp Pulse 60 01/12/19 13:57 Resp 18 01/12/19 13:57 BP 145/82 01/12/19 13:57 Pulse Ox Intake & Output 01/11/19 01/12/19 01/12/19 18:59 06:59 18:59 Weight 93.44 kg - Exam General: Awake and alert oriented 3 no distress Respiratory exam: No audible wheezing no accessory muscle usage Cardiovascular exam: regular rate, palpable bilateral pulses, no lower extremity edema Abdominal exam: No distention nontender to palpation Cervical spine: Normal alignment, Spurling's negative, facet loading is negative. 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 Nontender palpation of the cervical spine. There is no erythema or fluctuance Lumbar spine: Loss of lumbar lordosis, normal alignment, tender to palpation over bilateral paraspinal muscles, facet loading is negative bilaterally. Straight leg raise is negative. Limited range of motion due to pain with flexion, extension and side bending. Sacroiliac joints: Nontender to palpation, ALBERTA is positive, Gaenselon positive bilaterally Neuro exam: Normal sensation in bilateral upper extremities, deep tendon reflexes are 2+ bilateral upper extremities. Normal sensation in bilateral lower extremities. Deep tendon reflexes are 2+ in lower extremities Psych exam: Cooperative, appropriate mood Assessment and Plan Assessment: #1 cervical spondylosis without myelopathy #2 sacroiliitis Plan: At this point patient I agree that starting gabapentin again at the same dose would probably be the best bet. We'll try that for 4-8 weeks and see if his pain is improved. She does have good improvement we'll continue the gabapentin. If his pain is unimproved after 4-6 weeks we will go back to the drawing board. PQRS Measure Charge Sheet Measure #130: Documentation of Current Meds in Medical Chart: Patient's medications documented in chart Measure #226: Tobacco Use: Screen & Cessation Intervention: Pt screened for tobacco use AND intervention given Measure #111: Pneumonia Vaccination: Pneumococcal vaccine administered or previously received Measure #47: Advance Care Plan: Advance care planning discussed & documented, plan or surrogate given Measure #412: Opioid Treatment Agreement: Documented signed opioid trtmnt agreemnt min once during opioid trtmnt Measure #317: Preventitive Care & Scrn High Bld Press & F/U: Normal blood pressure, f/u not required Measure #128: Body Mass Index (BMI) Screening & Follow-up: BMI documented within normal parameters Measure #131: Pain Assessment & Follow-up: Pain positive & plan documented, Follow-up scheduled Measure #431: Unhealthy Alcohol Use Preventative Care & Scrn: Patient not identified as an unhealthy alcohol user PQRS Narrative: Smoking Status Former smoker Blood Pressure 145/82 Pain Intensity [Bilateral Neck 4 ] Hx Alcohol Use (MH) No Home Medications: Ambulatory Orders Ascorbic Acid [Vitamin C] 500 mg PO DAILY 03/10/16 Aspirin 162 mg PO HS 03/10/16 Atorvastatin [Lipitor] 40 mg PO HS 03/10/16 Calcium/Magnesium/Zinc [Kskvhzs-Vdujraziv-Arga Tablet] 1 tab PO DAILY 03/10/16 Carvedilol [Coreg] 6.25 mg PO BID 03/10/16 Furosemide [Lasix] 20 mg PO DAILY 03/10/16 Losartan [Cozaar] 25 mg PO DAILY 03/10/16 Ubidecarenone [Co Q-10] 100 mg PO DAILY 03/10/16 Acetaminophen [Tylenol] 325 - 500 mg PO Q4H PRN 08/01/16 Vitamin B Complex 1 cap PO DAILY 08/01/16 Isosorbide Mononitrate ER [Imdur] 30 mg PO DAILY tab.er.24h 06/06/17 Controlled Substance Measures - Controlled Substance Measures Is patient prescribed a controlled substance at discharge?: Yes When asked, does pt state using other controlled substances?: No If prescribed controlled substance>3 days was MAPS reviewed?: Yes
[2019-01-12 14:11] VITALS: BP 145/82; PULSE 60; RESP 18
== END ==
LOC: PNWHC3 13:50
PROVIDERS: ATTEND Hospitalist
DX: M47.812 Spondylosis without myelopathy or radiculopathy, cervical region (principal); M46.1 Sacroiliitis, not elsewhere classified; Z71.6 Tobacco abuse counseling; Z87.891 Personal history of nicotine dependence; Z79.899 Other long term (current) drug therapy; Z79.82 Long term (current) use of aspirin; Z79.02 Long term (current) use of antithrombotics/antiplatelets
CPT/HCPCS: 99211

== ENCOUNTER → 2019-03-10 | Outpatient (CLI) | payer MEDICARE, OTHER ==
--- NOTE | 2019-03-10 14:55 | CT ---
EXAMINATION TYPE: CT lumbar spine wo con DATE OF EXAM: 03/10/2019 COMPARISON: None HISTORY: 74-year-old male Low back pain. TECHNIQUE: Contiguous axial scanning of the lumbar spine without IV contrast. Coronal and sagittal re constructions performed. CT DLP: 1030 mGycm Automated exposure control for dose reduction was used. FINDINGS: Vertebral body heights are preserved. Hypertrophic facet arthropathy with posterior fusion along the spinous processes at L3-L4 and L4-L5. Severe disc/endplate degenerative change at both these levels with disc osteophyte, formation mildly narrowing the spinal canal at L4-L5. Additional hypertrophic facet arthropathy above the fusion with mild degenerative disc disease and bu lging disc. No high-grade canal compromise is identified. On the left, changes result in mild neuroforaminal narrowing at both L3-L4 and L4-L5. More moderate t o severe at L5-S1. Bulging disc at L3-L4 may abut the traversing left L4 nerve root. On the right, changes result in moderate to severe neuroforaminal narrowing L4-L5 and L5-S1, moderate at L3-L4. No prevertebral or paravertebral soft tissue abnormality seen. IMPRESSION: 1. PRIOR POSTERIOR FUSION ALONG THE SPINOUS PROCESSES AT L3-L4 AND L4-L5. 2. SEVERE DEGENERATIVE DISC DISEASE AND FACET ARTHROPATHY AT BOTH OF THESE LEVELS. DISC OSTEOPHYTE CO MPLEX CAUSES MILD SPINAL CANAL STENOSIS AT L4-L5. NO HIGH-GRADE CANAL COMPROMISE. 3. MODERATE TO SEVERE LEFT NEUROFORAMINAL STENOSIS AT L5-S1 AND ON THE RIGHT AT BOTH L4-L5 AND L5-S1.
== END | disposition home or self-care (01) ==
LOC: RADCTMAIN 13:30
PROVIDERS: ATTEND Orthopaedic Surgery Orthopaedic Surgery of the Spine
DX: M48.061 Spinal stenosis, lumbar region without neurogenic claudication (principal); M48.07 Spinal stenosis, lumbosacral region; M51.36 Other intervertebral disc degeneration, lumbar region; M46.96 Unspecified inflammatory spondylopathy, lumbar region; Z98.1 Arthrodesis status
CPT/HCPCS: 72131; 99211

== ENCOUNTER → 2019-03-10 | Outpatient (CLI) | payer MEDICARE, OTHER ==
--- NOTE | 2019-03-10 17:06 | P.PAINPG ---
Subjective Progress Note Date: 03/10/19 Sarkis is a 74-year-old gentleman presented today for follow-up. He is status post radiofrequency ablation cervical spine bilaterally a few months ago. He reports that his pain significantly improved after the ablations. At his last visit in January 2019 he was restarted on his home dose of gabapentin 400 mg 3 times a day. Today he reports that he is overall doing well. He has some aching in his neck, and rates it as 4 out of 10. He reports that since resuming the gabapentin, his pain has significantly reduced. He denies side effects from this medication. He also reports a 3 month history of intermittent low back pain that shoots across his low back, and radiates to bilateral posterior thighs. He was evaluated by Dr. Napier and prescribed a steroid taper. He is scheduled to undergo a computed tomography scan of his lumbar spine later today. He cannot have an MRI due to presence of a pacemaker. Review of systems is negative for chest pain, shortness of breath, changes in vision, changes in hearing, new onset weakness, abdominal pain, diarrhea, extreme fatigue, malaise, fever, skin changes, homicidal or suicidal ideation, or bowel or bladder incontinence. Objective - Vital Signs Vital signs: Reviewed in EMR - Exam General: Awake and alert oriented 3 no distress Respiratory exam: No audible wheezing no accessory muscle usage Cardiovascular exam: regular rate, palpable bilateral pulses, no lower extremity edema Abdominal exam: No distention nontender to palpation Cervical spine: Normal alignment, Spurling's negative, facet loading is negative. His category specialist strength is 5 out of 5. Mild tenderness to palpation of the bilateral cervical paraspinal muscles, with palpable trigger points. Lumbar spine: Loss of lumbar lordosis, normal alignment, non-tender to palpation over bilateral paraspinal muscles, facet loading is negative bilaterally. Straight leg raise is negative.. Sacroiliac joints: Nontender to palpation, ALBERTA is negative bilaterally Neuro exam: Normal sensation in bilateral upper extremities, deep tendon reflexes are 2+ bilateral upper extremities. Normal sensation in bilateral lower extremities. Deep tendon reflexes are 2+ in lower extremities. Strength is grossly intact in the bilateral lower extremities and upper extremities, except for left foot- he is unable to toe walk Psych exam: Cooperative, appropriate mood Assessment and Plan Assessment: #1 cervical spondylosis without myelopathy #2 sacroiliitis Plan: Continue gabapentin 400 mg 3 times a day. Prescription written today with 2 refills. Patient was encouraged to use massage therapy for cervical paraspinal triggerpoints. I offered cervical paraspinal trigger point injections, however patient does not feel he requires facet this time. Follow-up: In 12 weeks, at that time we will review his lumbar spine CT. PQRS Measure Charge Sheet Measure #130: Documentation of Current Meds in Medical Chart: Patient's medications documented in chart Measure #47: Advance Care Plan: Advance care planning discussed & documented, pt chose/unable to give Measure #412: Opioid Treatment Agreement: Documented signed opioid trtmnt agreemnt min once during opioid trtmnt Measure #408: Opioid Therapy Follow-up Evaluation: Patient had f/u eval minimum every 3 months during opioid therapy Measure #317: Preventitive Care & Scrn High Bld Press & F/U: Normal blood pressure, f/u not required Measure #131: Pain Assessment & Follow-up: Pain positive & plan documented, Follow-up scheduled Measure #431: Unhealthy Alcohol Use Preventative Care & Scrn: Patient not identified as an unhealthy alcohol user PQRS Narrative: Smoking Status Former smoker Hx Alcohol Use (MH) No Home Medications: Ambulatory Orders Ascorbic Acid [Vitamin C] 500 mg PO DAILY 03/10/16 Aspirin 162 mg PO HS 03/10/16 Atorvastatin [Lipitor] 40 mg PO HS 03/10/16 Calcium/Magnesium/Zinc [Qysabpr-Rclreurbs-Ckal Tablet] 1 tab PO DAILY 03/10/16 Carvedilol [Coreg] 6.25 mg PO BID 03/10/16 Furosemide [Lasix] 20 mg PO DAILY 03/10/16 Losartan [Cozaar] 25 mg PO DAILY 03/10/16 Ubidecarenone [Co Q-10] 100 mg PO DAILY 03/10/16 Acetaminophen [Tylenol] 325 - 500 mg PO Q4H PRN 08/01/16 Vitamin B Complex 1 cap PO DAILY 08/01/16 Isosorbide Mononitrate ER [Imdur] 30 mg PO DAILY tab.er.24h 06/06/17 Gabapentin [Neurontin] 400 mg PO TID #90 cap 03/10/19 Controlled Substance Measures - Controlled Substance Measures Is patient prescribed a controlled substance at discharge?: Yes When asked, does pt state using other controlled substances?: No If prescribed controlled substance>3 days was MAPS reviewed?: Yes If Rx opioid, was Start Talking consent form obtained?: Yes If opioid is for acute pain is fill amount 7 days or less?: No Was information provided regarding opioid addiction?: Yes
== END ==
CPT/HCPCS: 99211

== ENCOUNTER 2019-04-21 17:47 | Inpatient (IN) | payer MEDICARE, OTHER ==
[2019-04-21 18:52] LABS: Basophils # (A) 0.1 k/uL (0-0.2); Basophils % (A) 1 %; Eosinophils # (A) 0.1 k/uL (0-0.7); Eosinophils % (A) 2 %; HCT 39.6 % (39.0-53.0); HGB 13.5 gm/dL (13.0-17.5); Lymphocytes # (A) 1.1 k/uL (1.0-4.8); Lymphocytes % (A) 17 %; MCH 31.9 pg (25.0-35.0); MCV 93.7 fL (80.0-100.0); Mean Platelet Volume 7.6; Monocytes # (A) 0.4 k/uL (0-1.0); Monocytes % (A) 6 %; Neutrophils # (A) 4.4 k/uL (1.3-7.7); Neutrophils % (A) 71 %; Platelet Count 206 k/uL (150-450); RBC 4.23 m/uL (4.30-5.90); RDW 13.3 % (11.5-15.5); WBC 6.2 k/uL (3.8-10.6)
[2019-04-21 18:59] LABS: ALT 20 U/L (21-72); AST 52 U/L (17-59); African American GFR (CKD) >90 (>60 ml/min/1.73 sqM); Albumin 4.5 g/dL (3.5-5.0); Alkaline Phosphatase 51 U/L (38-126); Anion Gap 8 mmol/L; Blood Urea Nitrogen 17 mg/dL (9-20); Calcium 9.1 mg/dL (8.4-10.2); Carbon Dioxide 24 mmol/L (22-30); Chloride 106 mmol/L (98-107); Glucose 105 mg/dL (74-99); INR 0.9 (<1.2); Potassium 5.4 mmol/L (3.5-5.1); Prothrombin Time 9.9 sec (9.0-12.0); Sodium 138 mmol/L (137-145); Total Bilirubin 1.3 mg/dL (0.2-1.3); Total Protein 7.6 g/dL (6.3-8.2)
--- NOTE | 2019-04-21 19:11 | XR ---
EXAMINATION TYPE: XR chest 2V DATE OF EXAM: 04/21/2019 COMPARISON: 06/03/2017 HISTORY: Dysrhythmia TECHNIQUE: Frontal and lateral views of the chest are obtained. FINDINGS: Heart is borderline enlarged. There is no heart failure. There is a left axillary pacemake r. There are sternal wires. Costophrenic angles are clear. Bony thorax appears intact. IMPRESSION: No active cardiopulmonary disease. No change.
--- NOTE | 2019-04-21 20:12 | ED ---
Dizziness HPI - General Chief Complaint: Dizziness Stated Complaint: Weakness Time Seen by Provider: 04/21/19 18:09 Source: EMS Mode of arrival: EMS Limitations: no limitations - History of Present Illness Initial Comments: The patient is a 74-year-old male presents emergency department with reported syncopal sensation. The patient does have a history of recurrent V. tach. He does have an ICD and pacemaker in place. States he sees Dr. Mendoza was done 2 cardiac ablations on him for recurrent V. tach. He also sees Dr. Piedra in office. Patient states that around 8 AM this morning he was tying shoes. He bent forward and when he picked his head up he felt acutely dizzy as if he was going to pass out. States that he sat down and rested for a minute. States he then felt improved. He went on with his day. Around 5:15 PM he was inside of [employer]. He began feeling as if he was given a pass out again. He states he leaned over the counter. The next day he new he woke up sitting on the ground. Someone in the store had seen him and assisted him to the ground. He states he was only out for several seconds before regaining consciousness. He suffered no injuries from the incident. He states he has had similar in the past when he has gone to [employer] and is highly concerned for recurrent arrhythmia. He does have a [employer] device. States he was last interrogated about a year ago. He denies any headaches or visual changes. Denies any chest pain or shortness of breath. Denies ICD shock. No recent infections. Denies any recent travel. Denies any abdominal pain or changes in bowel or bladder habits. There are no other alleviating, precipitating modifying factors - Related Data Home Medications Medication Instructions Recorded Confirmed Ascorbic Acid [Vitamin C] 500 mg PO DAILY 03/10/16 04/21/19 Aspirin 162 mg PO HS 03/10/16 04/21/19 Atorvastatin [Lipitor] 40 mg PO HS 03/10/16 04/21/19 Calcium/Magnesium/Zinc 1 tab PO DAILY 03/10/16 04/21/19 [Ufhhcmt-Grrqsyzwb-Znyy Tablet] Carvedilol [Coreg] 6.25 mg PO BID 03/10/16 04/21/19 Furosemide [Lasix] 20 mg PO DAILY 03/10/16 04/21/19 Losartan [Cozaar] 25 mg PO DAILY@1600 03/10/16 04/21/19 Ubidecarenone [Co Q-10] 100 mg PO DAILY 03/10/16 04/21/19 Vitamin B Complex 1 cap PO DAILY 08/01/16 04/21/19 Previous Rx's Medication Instructions Recorded Isosorbide Mononitrate ER [Imdur] 30 mg PO DAILY tab.er.24h 06/06/17 Gabapentin [Neurontin] 400 mg PO TID #90 cap 03/10/19 Allergies Allergy/AdvReac Type Severity Reaction Status Date / Time No Known Allergies Allergy Verified 04/21/19 18:24 Review of Systems ROS Statement: Those systems with pertinent positive or pertinent negative responses have been documented in the HPI. ROS Other: All systems not noted in ROS Statement are negative. Past Medical History Past Medical History: Coronary Artery Disease (CAD), Cancer, Heart Failure, Myocardial Infarction (PR), Osteoarthritis (OA), Pneumonia Additional Past Medical History / Comment(s): arrythmia(past epidodes v-tach), PR X2. HX past bladder cancer. POS hiatal hernia. CHRONIC CERVICAL PAIN. AICD/PACER - [employer]. DENIES HYPERTENSION Last Myocardial Infarction Date:: 1994 History of Any Multi-Drug Resistant Organisms: None Reported Past Surgical History: AICD, Back Surgery, Cardiac Ablation, Coronary Bypass/CABG, Orthopedic Surgery, Pacemaker Additional Past Surgical History / Comment(s): tumor removed from bladder, ep study, past cardioversion/ ablation X2 - LAST 06/2017. DB CABG 1985. tube lt ear 2007, lt rotator cuff sx, pilonidal surgery letty knee arthroscopy, pain clinic procedure Past Anesthesia/Blood Transfusion Reactions: Previous Problems w/ Anesthesia Additional Past Anesthesia/Blood Transfusion Reaction / Comment(s): Slow to wake up after. Type of Cardiac Device: AICD Device Placement Date:: 04/2013 - [employer] Past Psychological History: No Psychological Hx Reported Smoking Status: Former smoker Past Alcohol Use History: Occasional Past Drug Use History: None Reported - Past Family History Mother Family Medical History: Cancer Additional Family Medical History / Comment(s): breast cancer Father Family Medical History: Myocardial Infarction (PR) Additional Family Medical History / Comment(s): age 46 from [place] ( 4 months beofre pt was born) General Exam Limitations: no limitations Course Vital Signs 04/21/19 04/21/19 04/21/19 18:11 18:27 19:00 Temperature 98.6 F Pulse Rate 75 67 Pulse Rate [ 67 Commodity Director ] Respiratory 18 18 Rate Blood Pressure 154/83 153/81 O2 Sat by Pulse 87 L 99 Oximetry 04/21/19 04/21/19 04/21/19 20:00 21:00 21:45 Temperature Pulse Rate 72 73 Pulse Rate [ Commodity Director ] Respiratory 16 18 Rate Blood Pressure 144/82 148/74 163/79 O2 Sat by Pulse 97 97 98 Oximetry 04/21/19 04/21/19 04/21/19 22:00 22:03 23:00 Temperature 98.0 F Pulse Rate 78 63 Pulse Rate [ Commodity Director ] Respiratory 18 17 Rate Blood Pressure 163/79 165/83 156/86 O2 Sat by Pulse 98 93 L Oximetry 04/22/19 04/22/19 04/22/19 00:00 01:00 02:00 Temperature Pulse Rate 64 62 58 L Pulse Rate [ Commodity Director ] Respiratory 16 18 16 Rate Blood Pressure 129/83 114/56 132/80 O2 Sat by Pulse 96 94 L 96 Oximetry EKG Findings - EKG Comments: EKG Findings:: EKG demonstrates a paced rhythm. Ventricular rate of 76.. Interval 82. QRS 182. QTC of 531. It does appear that the pacemaker appropriately. No sgarboassa criteria Medical Decision Making - Medical Decision Making Upon arrival the patient's placed into room 8. He is hooked up to continuous pulse ox and cardiac monitoring. A thorough history and physical exam was performed. A 12-lead EKG was obtained on the patient which demonstrates a normal sinus rhythm. The patient placed on telemetry monitoring. I did perform laboratory studies and a chest x-ray. Laboratory studies are essentially unremarkable. Chest x-ray demonstrates no acute findings. We did interrogate the patient's device. I review the report myself and later on I do get a call from the clearance representative. The patient did have 3 episodes of V. tach today. First episode happened around 8 AM he required ATP x5. Patient then had 2 additional episodes of V. tach around 5:15. I discussed this with the patient. I did recommend hospital admission for which the patient did agree. A call discuss case with Dr. Kessler who accepted admission of the patient. I will place cardiology on consult. The patient remained in stable condition awaiting a bed on the floor - Lab Data Result diagrams: 04/21/19 18:22 04/21/19 18:22 Lab Results 04/21/19 04/21/19 04/21/19 Range/Units 18:22 18:22 18:22 WBC 6.2 (3.8-10.6) k/uL RBC 4.23 L (4.30-5.90) m/uL Hgb 13.5 (13.0-17.5) gm/dL Hct 39.6 (39.0-53.0) % MCV 93.7 (80.0-100.0) fL MCH 31.9 (25.0-35.0) pg MCHC 34.0 (31.0-37.0) g/dL RDW 13.3 (11.5-15.5) % Plt Count 206 (150-450) k/uL Neutrophils % 71 % Lymphocytes % 17 % Monocytes % 6 % Eosinophils % 2 % Basophils % 1 % Neutrophils # 4.4 (1.3-7.7) k/uL Lymphocytes # 1.1 (1.0-4.8) k/uL Monocytes # 0.4 (0-1.0) k/uL Eosinophils # 0.1 (0-0.7) k/uL Basophils # 0.1 (0-0.2) k/uL PT (9.0-12.0) sec INR (<1.2) APTT (22.0-30.0) sec Sodium 138 (137-145) mmol/L Potassium 5.4 H (3.5-5.1) mmol/L Chloride 106 (98-107) mmol/L Carbon Dioxide 24 (22-30) mmol/L Anion Gap 8 mmol/L BUN 17 (9-20) mg/dL Creatinine 0.78 (0.66-1.25) mg/dL Est GFR (CKD-EPI)AfAm >90 (>60 ml/min/1.73 sqM) Est GFR (CKD-EPI)NonAf 89 (>60 ml/min/1.73 sqM) Glucose 105 H (74-99) mg/dL Calcium 9.1 (8.4-10.2) mg/dL Magnesium 2.0 (1.6-2.3) mg/dL Total Bilirubin 1.3 (0.2-1.3) mg/dL AST 52 (17-59) U/L ALT 20 L (21-72) U/L Alkaline Phosphatase 51 (38-126) U/L Troponin I (0.000-0.034) ng/mL NT-Pro-B Natriuret Pep 1070 pg/mL Total Protein 7.6 (6.3-8.2) g/dL Albumin 4.5 (3.5-5.0) g/dL 04/21/19 04/21/19 Range/Units 18:22 18:22 WBC (3.8-10.6) k/uL RBC (4.30-5.90) m/uL Hgb (13.0-17.5) gm/dL Hct (39.0-53.0) % MCV (80.0-100.0) fL MCH (25.0-35.0) pg MCHC (31.0-37.0) g/dL RDW (11.5-15.5) % Plt Count (150-450) k/uL Neutrophils % % Lymphocytes % % Monocytes % % Eosinophils % % Basophils % % Neutrophils # (1.3-7.7) k/uL Lymphocytes # (1.0-4.8) k/uL Monocytes # (0-1.0) k/uL Eosinophils # (0-0.7) k/uL Basophils # (0-0.2) k/uL PT 9.9 (9.0-12.0) sec INR 0.9 (<1.2) APTT 22.0 (22.0-30.0) sec Sodium (137-145) mmol/L Potassium (3.5-5.1) mmol/L Chloride (98-107) mmol/L Carbon Dioxide (22-30) mmol/L Anion Gap mmol/L BUN (9-20) mg/dL Creatinine (0.66-1.25) mg/dL Est GFR (CKD-EPI)AfAm (>60 ml/min/1.73 sqM) Est GFR (CKD-EPI)NonAf (>60 ml/min/1.73 sqM) Glucose (74-99) mg/dL Calcium (8.4-10.2) mg/dL Magnesium (1.6-2.3) mg/dL Total Bilirubin (0.2-1.3) mg/dL AST (17-59) U/L ALT (21-72) U/L Alkaline Phosphatase (38-126) U/L Troponin I 0.029 (0.000-0.034) ng/mL NT-Pro-B Natriuret Pep pg/mL Total Protein (6.3-8.2) g/dL Albumin (3.5-5.0) g/dL Disposition Clinical Impression: Recurrent ventricular tachycardia, Syncope Disposition: ADMITTED IP TO THIS [facility] Condition: Serious Is patient prescribed a controlled substance at d/c from ED?: No Decision to Admit Reason: Admit from EC Decision Date: 04/21/19 Decision Time: 20:39
[2019-04-21] MEDS ORDERED: NALOXONE 0.4 MG/ML 1 ML VIAL IV PRN (20:39)
[2019-04-21] MEDS: ATORVASTATIN 40 MG TAB PO SCH (21:58)
[2019-04-21] MEDS: CARVEDILOL 6.25 MG TAB PO SCH (21:58)
[2019-04-21] MEDS: ASPIRIN 81 MG PO SCH (21:58)
[2019-04-21] MEDS ORDERED: DEXTROSE 50% SYRINGE 50 ML IVP STA (23:16)
[2019-04-21] MEDS ORDERED: INSULIN REGULAR 100 UNIT/ML VIAL IV ONE (23:16)
--- NOTE | 2019-04-21 23:28 | P.HPIM ---
History of Present Illness H&P Date: 04/21/19 Chief Complaint: Syncope 74-year-old male with history of ischemic cardiomyopathy chronic systolic CHF with ventricular ejection fraction 15-20% status post ICD Patient presented to the hospital after an episode of witnessed syncope at grocery store. Patient reports that he woke up this morning feeling dizzy at 8 in the morning he had an episode lasted few minutes where he was dizzy lightheaded and having cold sweats which resolved on its own patient didn't feel any shock in his chest. He rested the rest of the day and later on felt more energetic decided to go to some shopping around 5 PM when he was at grocery store and suddenly felt weak and dizzy lightheaded, he leaned against a wall and ask for help notified to by standard to call 911 patient did not fall as the bystander helped him he passed out briefly and then regained consciousness immediately no head injuries no cuts or bruises. Patient was brought into the hospital ICD device was interrogated patient found to have V. tach about 3 episodes and devices delivered to shock. Patient reports history of V. tach multiple times status post ablation twice. Patient currently denies any chest pain or trouble breathing denies fevers chills coughing denies any GI bleeding abdominal pain nausea vomiting patient feels that he's back to his baseline is very worried regarding further episodes of V. tach. In the ED blood work was unremarkable except for mild hyperkalemia EKG showed ventricularly paced rhythm ICD device was interrogated Review of Systems Pertinent positives as noted in HPI. All other systems were reviewed and are negative Past Medical History Past Medical History: Coronary Artery Disease (CAD), Cancer, Heart Failure, Myocardial Infarction (PR), Osteoarthritis (OA), Pneumonia Additional Past Medical History / Comment(s): arrythmia(past epidodes v-tach), PR X2. HX past bladder cancer. POS hiatal hernia. CHRONIC CERVICAL PAIN. AICD/PACER - [employer]. DENIES HYPERTENSION Last Myocardial Infarction Date:: 1994 History of Any Multi-Drug Resistant Organisms: None Reported Past Surgical History: AICD, Back Surgery, Cardiac Ablation, Coronary Bypass/CABG, Orthopedic Surgery, Pacemaker Additional Past Surgical History / Comment(s): tumor removed from bladder, ep study, past cardioversion/ ablation X2 - LAST 06/2017. DB CABG 1985. tube lt ear 2008, lt rotator cuff sx, pilonidal surgery letty knee arthroscopy, pain clinic procedure Past Anesthesia/Blood Transfusion Reactions: Previous Problems w/ Anesthesia Additional Past Anesthesia/Blood Transfusion Reaction / Comment(s): Slow to wake up after. Type of Cardiac Device: AICD Device Placement Date:: 04/2013 - [employer] Past Psychological History: No Psychological Hx Reported Smoking Status: Former smoker Past Alcohol Use History: Occasional Past Drug Use History: None Reported - Past Family History Mother Family Medical History: Cancer Additional Family Medical History / Comment(s): breast cancer Father Family Medical History: Myocardial Infarction (PR) Additional Family Medical History / Comment(s): age 46 [place] ( 4 months beofre pt was born) Medications and Allergies Home Medications Medication Instructions Recorded Confirmed Type Ascorbic Acid [Vitamin C] 500 mg PO DAILY 03/10/16 04/21/19 History Aspirin 162 mg PO HS 03/10/16 04/21/19 History Atorvastatin [Lipitor] 40 mg PO HS 03/10/16 04/21/19 History Calcium/Magnesium/Zinc 1 tab PO DAILY 03/10/16 04/21/19 History [Ytadcns-Cwewurdiy-Qdkg Tablet] Carvedilol [Coreg] 6.25 mg PO BID 03/10/16 04/21/19 History Furosemide [Lasix] 20 mg PO DAILY 03/10/16 04/21/19 History Losartan [Cozaar] 25 mg PO DAILY@1600 03/10/16 04/21/19 History Ubidecarenone [Co Q-10] 100 mg PO DAILY 03/10/16 04/21/19 History Vitamin B Complex 1 cap PO DAILY 08/01/16 04/21/19 History Isosorbide Mononitrate ER [Imdur] 30 mg PO DAILY tab.er.24h 06/06/17 04/21/19 Rx Gabapentin [Neurontin] 400 mg PO TID #90 cap 03/10/19 04/21/19 Rx Allergies Allergy/AdvReac Type Severity Reaction Status Date / Time No Known Allergies Allergy Verified 04/21/19 18:24 Physical Exam Vitals: Vital Signs Temp Pulse Pulse Resp BP Pulse Ox 04/21/19 22:03 98.0 F 78 18 165/83 98 04/21/19 21:00 73 18 148/74 97 04/21/19 20:00 72 16 144/82 97 09/11/19 19:00 67 18 153/81 99 04/21/19 18:27 67 04/21/19 18:11 98.6 F 75 18 154/83 87 L Intake and Output 04/21/19 04/21/19 04/22/19 14:59 22:59 06:59 Other: Weight 95.254 kg Constitutional: No acute distress, conversant, pleasant Eyes: Anicteric sclerae, moist conjunctiva, no lid-lag Pupils equal round reactive to light ENMT: NC/AT Oropharynx clear, no erythema, exudates Neck: Supple, FROM, no masses, or JVD No carotid bruits No thyromegaly Lungs: Clear to auscultation Clear to percussion Normal respiratory effort, no accessory muscle use Cardiovascular: Heart regular in rate and rhythm, No murmurs, gallops, or rubs No peripheral edema Abdominal: Soft Nontender, no guarding, rebound or rigidity Abdomen moving with respiration Normoactive bowel sounds No hepatomegaly, No splenomegaly No palpable mass No abdominal wall hernia noted Skin: ICD device palpable under the skin over the left anterior chest Normal temperature, tone, texture, turgor No induration No subcutaneous nodules No rash, lesions No ulcers Extremities: No digital cyanosis No clubbing Pedal pulses intact and symmetrical Radial pulses intact and symmetrical No calf tenderness Psychiatric: Alert and oriented to person, place and time Appropriate affect fair judgment Neuro Muscles Strength 5/5 in all 4 extremities Sensation to light touch grossly present throughout Cranial nerves II-XII grossly intact No focal sensory deficits Lymphatics: no palpable cervical or supraclavicular , or inguinal lymph nodes Results CBC & Chem 7: 04/21/19 18:22 04/21/19 18:22 Labs: Abnormal Lab Results - Last 24 Hours (Table) 04/21/19 04/21/19 Range/Units 18:22 18:22 RBC 4.23 L (4.30-5.90) m/uL Potassium 5.4 H (3.5-5.1) mmol/L Glucose 105 H (74-99) mg/dL ALT 20 L (21-72) U/L Assessment and Plan Assessment: 74-year-old male with history of chronic systolic CHF left ventricular ejection fraction 15-20% status post ICD, ischemic cardiomyopathy. Admitted as an i npatient with anticipated length of stay more than 2 midnight due to syncope secondary to nonsustained V. tach frequent episodes. mild hyperkalemia. Patient admitted for cardiology evaluation and further recommendations Plan: Syncope Episodes of Nonsustained V. tach Mild hyperkalemia Chronic systolic CHF left ventricular ejection fraction 15-20% status post ICD, ischemic cardiomyopathy Check orthostatic vital signs Continue cardiac monitoring ICD device interrogated, showed episodes of nonsustained V. tach Optimize electrolytes balance Follow-up magnesium potassium sodium and calcium Cardiology consult Continue home meds 1 dose of IV insulin 10 units with D50 one amp for hyperkalemia Follow-up potassium level Cardiac monitoring Heparin subcu 3 times a day for DVT prophylaxis CODE STATUS: Full code Discussed with: Patient, ER, RN Anticipated length of stay more than [address]: Home A total of 60 minutes was spent on the care of this complex patient more than 50% of the time was spent in counseling and care coordination.
--- NOTE | 2019-04-21 23:30 | P.HPADDEND ---
H&P Addendum H&P Addendum Date: 04/21/19 Advanced Care Planning Active diagnoses: Nonsustained V. tach frequent episodes of syncope Background: The patient was admitted for treatment of nonsustained V. tach symptomatic with syncope. Confirmation and clarification of wishes upon admission. Discussion: Person(s) present and participating in discussion: The patient, myself, and patient's son Summary: Patient understands his disease process, he reports history of nonsustained V. tach. It was treated with ablation twice. However he continued to have episodes of V. tach he was shocked by his device multiple times in the past. This is a source of stress for him he reports that is concerning to him especially if this happens while he is driving or swimming. I counseled the patient that in case of swimming or driving he should always have someone close by in case of emergency shouldn't be driving alone or swimming in a swimming pool without supervision. Patient reports that he is hoping for cardiology to consider other approaches to help prevent further episodes of V. tach in the future. He is compliant with his medications. Patient is hoping to go home after being stabilized and evaluated by cardiology. Patient wishes this to be a full code full resuscitation and CPR if needed however to not consider prolonged heroic measures and vegetable status on event if there would be no good outcomes Time spent: Total time spent face to face in education and discussion directly related to advanced care plannin minutes
[2019-04-22 03:08] LABS: Glucose,Whole Blood 104 mg/dL (75-99)
[2019-04-22 03:42] VITALS: BMI 30.1
[2019-04-22] MEDS: HEPARIN SODIUM,PORCINE 5,000 UNIT/ML 1 ML VIAL SQ SCH ×4 (03:45→23:14)
[2019-04-22 06:20] LABS: HCT 37.9 % (39.0-53.0); HGB 12.8 gm/dL (13.0-17.5); MCH 32.2 pg (25.0-35.0); MCHC 33.8 g/dL (31.0-37.0); MCV 95.1 fL (80.0-100.0); Mean Platelet Volume 7.2; Platelet Count 196 k/uL (150-450); RBC 3.99 m/uL (4.30-5.90); RDW 13.4 % (11.5-15.5); WBC 6.3 k/uL (3.8-10.6)
[2019-04-22 06:30] LABS: ALT 27 U/L (21-72); AST 27 U/L (17-59); African American GFR (CKD) >90 (>60 ml/min/1.73 sqM); Albumin 3.8 g/dL (3.5-5.0); Alkaline Phosphatase 49 U/L (38-126); Anion Gap 4 mmol/L; Blood Urea Nitrogen 14 mg/dL (9-20); Calcium 9.3 mg/dL (8.4-10.2); Carbon Dioxide 31 mmol/L (22-30); Chloride 106 mmol/L (98-107); Glucose 108 mg/dL (74-99); Magnesium 2.2 mg/dL (1.6-2.3); Potassium 4.6 mmol/L (3.5-5.1); Sodium 141 mmol/L (137-145); Total Bilirubin 0.6 mg/dL (0.2-1.3); Total Protein 6.4 g/dL (6.3-8.2)
[2019-04-22] MEDS ORDERED: ISOSORBIDE MONONITRATE ER 30 MG TAB.ER.24H PO SCH (09:00)
[2019-04-22] MEDS: CARVEDILOL 6.25 MG TAB PO SCH (09:36)
[2019-04-22] MEDS: FUROSEMIDE 20 MG TAB PO SCH (09:36)
[2019-04-22] MEDS ORDERED: CARVEDILOL 6.25 MG TAB PO STA (11:24)
--- NOTE | 2019-04-22 12:20 | ECHOF ---
Referral Reason:episodes of vt MEASUREMENTS -------- HEIGHT: 177.8 cm WEIGHT: 95.3 kg BP: 151/110 RVIDd: 3.4 cm (< 3.3) IVSd: 1.6 cm (0.6 - 1.1) LVIDd: 5.4 cm (3.9 - 5.3) LVPWd: 1.6 cm (0.6 - 1.1) IVSs: 2.3 cm LVIDs: 3.6 cm LVPWs: 1.8 cm LA Diam: 4.7 cm (2.7 - 3.8) LAESV Index (A-L): 46.26 ml/m Ao Diam: 3.2 cm (2.0 - 3.7) AV Cusp: 2.3 cm (1.5 - 2.6) MV EXCURSION: 18.048 mm (> 18.000) MV EF SLOPE: 35 mm/s (70 - 150) EPSS: 2.0 cm MV E Jessee: 0.80 m/s MV DecT: 194 ms MV A Jessee: 0.79 m/s MV E/A Ratio: 1.01 AR PHT: 789 ms RAP: 5.00 mmHg RVSP: 42.61 mmHg FINDINGS -------- Paced rhythm. This was a technically adequate study. The left ventricular size is normal. There is moderate concentric left ventricular hypertrophy. O verall left ventricular systolic function is severely impaired with, an EF between 20 - 25 %. Basal inferior LV wall motion is akinetic. Basal inferoseptal LV wall motion is hypokinetic. Mid lat eral LV wall motion is akinetic. Mid posterior LV wall motion is akinetic. Apical lateral LV wa ll motion is akinetic. The right ventricle is mildly enlarged. LA is severely dilated >40 ml/m2 The right atrium is normal in size. 5 ml of Lumason was utilized for enhancement of images. Interatrial and interventricular septum intact. There is mild aortic valve sclerosis. There is moderate aortic regurgitation. The mitral valve is normal. Mild tricuspid regurgitation present. There is mild pulmonary hypertension. The right ventricular systolic pressure, as measured by Doppler, is 42.61mmHg. Trace/mild (physiologic) pulmonic regurgitation. The aortic root size is normal. Normal inferior vena cava with normal inspiratory collapse consistent with estimated right atrial pre ssure of 5 mmHg. There is no pericardial effusion. CONCLUSIONS -------- 1. Paced rhythm. 2. This was a technically adequate study. 3. The left ventricular size is normal. 4. There is moderate concentric left ventricular hypertrophy. 5. Overall left ventricular systolic function is severely impaired with, an EF between 20 - 25 %. 6. Basal inferior LV wall motion is akinetic. 7. Basal inferoseptal LV wall motion is hypokinetic. 8. Mid lateral LV wall motion is akinetic. 9. Mid posterior LV wall motion is akinetic. 10. Apical lateral LV wall motion is akinetic. 11. The right ventricle is mildly enlarged. 12. LA is severely dilated >40 ml/m2 13. The right atrium is normal in size. 14. 5 ml of Lumason was utilized for enhancement of images. 15. Interatrial and interventricular septum intact. 16. There is mild aortic valve sclerosis. 17. There is moderate aortic regurgitation. 18. The mitral valve is normal. 19. Mild tricuspid regurgitation present. 20. There is mild pulmonary hypertension. 21. The right ventricular systolic pressure, as measured by Doppler, is 42.61mmHg. 22. Trace/mild (physiologic) pulmonic regurgitation. 23. The aortic root size is normal. 24. Normal inferior vena cava with normal inspiratory collapse consistent with estimated right atrial pressure of 5 mmHg. 25. There is no pericardial effusion. DOUBLE CUT SAWYER: Jhoana Guerrero RDCS
--- NOTE | 2019-04-22 12:34 | CONS ---
CONSULTATION Mr. Waterman is a 74-year-old gentleman who came to the emergency room with episode of syncopal spell. This patient has a known history of ischemic cardiomyopathy, prior ICD placement and V tach ablation about 2 or 3 years ago. The patient gives a history that yesterday morning around 8:00 he was tying his shoes. He was bent forward and then when he picked up his head, he felt dizzy and he was going to pass out. He sat down and rested for a minute and subsequently he improved then yesterday evening patient was inside of the [facility]. He began feeling as if he was going to pass out. He states he leaned over the counter, but the next thing he remembers that he woke up sitting on the ground. This lasted for several seconds. The patient came to the emergency room. Patient does not remember whether he got any ICD shocks. Patient's AICD was interrogated. The rep from [employer] called the ER physicians and he said patient had an episode of sustained VT yesterday morning that he had an ATP times 5 and subsequently he had 2 episodes of which he describes as a nonsustained ventricular tachycardia lasting for about 30 seconds. The report does not show that the patient got shock. He is feeling better now. He denies any chest pain. Denies any orthopnea or PND. Patient is stable cardiac cohn at present. PAST MEDICAL HISTORY: Past medical history includes a history of myocardial infarction, ischemic cardiomyopathy, AICD placement, history of VT ablation, prior history of myocardial infarction, history of hypertension and history of coronary artery bypass surgery. HOME MEDICATIONS: Patient's home medications include losartan, gabapentin, Lasix, Coreg 6.25 mg b.i.d., aspirin once a day and Lipitor 40 mg daily. PHYSICAL EXAMINATION: Physical examination at present reveals a 74-year-old gentleman who does not appear to be in any acute distress. Blood pressure is 150/110 mmHg. HEENT examination is negative. Neck is supple. There is no increase in jugular venous pressure. Both the carotid pulses are felt. There is no bruit. Chest is symmetrical. HEART: The PMI is not felt. First and second heart sounds are heard. Lungs are clinically clear to auscultation and percussion. Abdomen is negative. EXTREMITIES: Peripheral pulsations are 2+. EKG shows AV pacing. The patient has an upright QRS in I and aVL, so I am not sure patient is doing any Bi V pacing or not. The patient's electrolytes were normal. Creatinine is normal. FINAL IMPRESSION: This patient is having recurrent episodes of symptomatic ventricular tachycardia. Patient has a history of ischemic cardiomyopathy with prior history of coronary artery bypass surgery. RECOMMENDATIONS: We will increase the dose of Coreg to 12.5 mg b.i.d. Discontinue Cozaar and start the patient Entresto twice a day. We will review the findings of the interrogation of AICD and consult with Dr. Napier. Regarding further management, patient may need to be started either on amiodarone or sotalol. He had some side effects from amiodarone in the past. MMODL / IJN: [id number] /
[2019-04-22] MEDS: SOTALOL 80 MG TAB PO SCH ×2 (13:38→20:39)
[2019-04-22] MEDS ORDERED: LOSARTAN 25 MG TAB PO SCH (16:00)
--- NOTE | 2019-04-22 16:09 | P.PN ---
Subjective Progress Note Date: 04/22/19 Principal diagnosis: V. tach Patient was seen and examined. No acute events overnight. No further episodes of V. tach overnight. He denies any chest pain, shortness of breath or palpitations. No nausea or vomiting. No fever or chills. Objective - Vital Signs Vital signs: Vital Signs Temp 97.9 F 04/22/19 12:00 Pulse 60 04/22/19 12:00 Resp 19 04/22/19 12:00 BP 127/82 04/22/19 12:00 Pulse Ox 94 L 04/22/19 12:00 Intake & Output 04/21/19 04/22/19 04/22/19 18:59 06:59 18:59 Intake Total 50 350 Balance 50 350 Weight 95.254 kg Intake: IV 0 0.9 0 Amount of Fluid Infused ( 50 ml) Oral 350 Other: # Voids 0 5 - Exam General: [non toxic], [no distress], [appears at stated age] Derm: [warm], [dry] Head: [atraumatic], [normocephalic], [symmetric] Eyes: [EOMI], [no lid lag], [anicteric sclera] Mouth: [no lip lesion], [mucus membranes moist] Cardiovascular: [S1S2 reg], [no murmur], [positive DP pulse bilateral], [palpable ICD placed left chest] Lungs: [CTA bilateral], [no rhonchi, no rales] , [no accessory muscle use] Abdominal: [soft], [ nontender to palpation], [no guarding], [no appreciable organomegaly] Ext: [no gross muscle atrophy], [no edema], [no contractures] Neuro: [no focal neuro deficits] Psych: [Alert], [oriented], [appropriate affect] - Labs CBC & Chem 7: 04/22/19 05:52 04/22/19 05:52 Labs: Abnormal Lab Results - Last 24 Hours (Table) 04/21/19 04/21/19 04/22/19 Range/Units 18:22 18:22 03:04 RBC 4.23 L (4.30-5.90) m/uL Hgb (13.0-17.5) gm/dL Hct (39.0-53.0) % Potassium 5.4 H (3.5-5.1) mmol/L Carbon Dioxide (22-30) mmol/L Glucose 105 H (74-99) mg/dL POC Glucose (mg/dL) 104 H (75-99) mg/dL ALT 20 L (21-72) U/L 04/22/19 04/22/19 Range/Units 05:52 05:52 RBC 3.99 L (4.30-5.90) m/uL Hgb 12.8 L (13.0-17.5) gm/dL Hct 37.9 L (39.0-53.0) % Potassium (3.5-5.1) mmol/L Carbon Dioxide 31 H (22-30) mmol/L Glucose 108 H (74-99) mg/dL POC Glucose (mg/dL) (75-99) mg/dL ALT (21-72) U/L Assessment and Plan Assessment: Syncope Nonsustained ventricular tachycardia Chronic systolic CHF EF 15-20% post ICD placement Resolved: Hyperkalemia Likely due to arrhythmia. Plans: Telemetry monitoring. Follow cardiology consultation. Follow repeat consultation. Follow orthostats. As per cardiology plans, increase Coreg from 6.25-12.5 mg by mouth twice a day. Add sotalol. Echocardiogram shows EF 20-25% with hypokinetic wall motion. Also diastolic dysfunction. Plans: Continue beta kike. Continue Lasix. Started on Entresto. [Patient admitted after syncopal episode likely due to nonsustained V. tach. Cardiology is on board. Likely DC in 1-2 days.]
[2019-04-22] MEDS: CARVEDILOL 12.5 MG TAB PO SCH (17:36)
[2019-04-22] MEDS: ASPIRIN 81 MG PO SCH (20:39)
[2019-04-22] MEDS: ATORVASTATIN 40 MG TAB PO SCH (20:39)
[2019-04-23 02:03] VITALS: PULSE 60
[2019-04-23 06:04] LABS: Basophils % (A) 0 %; Eosinophils # (A) 0.2 k/uL (0-0.7); Eosinophils % (A) 2 %; HCT 39.2 % (39.0-53.0); HGB 13.1 gm/dL (13.0-17.5); Lymphocytes # (A) 1.1 k/uL (1.0-4.8); Lymphocytes % (A) 15 %; MCHC 33.4 g/dL (31.0-37.0); MCV 95.9 fL (80.0-100.0); Mean Platelet Volume 7.5; Monocytes # (A) 0.6 k/uL (0-1.0); Monocytes % (A) 8 %; Neutrophils # (A) 5.5 k/uL (1.3-7.7); Neutrophils % (A) 72 %; Platelet Count 198 k/uL (150-450); RBC 4.09 m/uL (4.30-5.90); RDW 14.9 % (11.5-15.5); WBC 7.7 k/uL (3.8-10.6)
[2019-04-23 06:13] LABS: African American GFR (CKD) >90 (>60 ml/min/1.73 sqM); Anion Gap 5 mmol/L; Blood Urea Nitrogen 15 mg/dL (9-20); Calcium 9.1 mg/dL (8.4-10.2); Carbon Dioxide 30 mmol/L (22-30); Chloride 106 mmol/L (98-107); Glucose 101 mg/dL (74-99); Potassium 4.6 mmol/L (3.5-5.1); Sodium 141 mmol/L (137-145)
[2019-04-23] MEDS: CARVEDILOL 12.5 MG TAB PO SCH ×2 (06:32→17:11)
[2019-04-23] MEDS: FUROSEMIDE 20 MG TAB PO SCH (08:50)
[2019-04-23] MEDS: HEPARIN SODIUM,PORCINE 5,000 UNIT/ML 1 ML VIAL SQ SCH ×3 (08:50→23:22)
[2019-04-23] MEDS: SACUBITRIL/VALSARTAN 24 MG-26 MG TABLET PO SCH ×2 (08:50→21:01)
[2019-04-23] MEDS: SOTALOL 80 MG TAB PO SCH ×2 (08:50→21:01)
--- NOTE | 2019-04-23 10:29 | PN ---
PROGRESS NOTE This patient came with syncope with recurrent episodes of ventricular tachycardia. Consultation was obtained with Dr. Napier. He may consider repeat VT ablation. At present, patient remains comfortable. There were no more episodes of ventricular tachycardia noted. The patient is started on Betapace 80 mg b.i.d. Blood pressure is 143/82 mmHg. First and second heart sounds are normal. Lungs are clinically clear to auscultation and percussion. Patient's electrolytes are normal. Creatinine is 0.93. We will continue the current medications. MMODL / IJN: [id number] /
--- NOTE | 2019-04-23 14:06 | P.PN ---
Subjective Progress Note Date: 04/23/19 Principal diagnosis: V. tach Patient was seen and examined. No acute events overnight. Patient reports no symptoms. He denies any chest pain, shortness of breath or palpitations. No nausea or vomiting. No fever or chills. Objective - Vital Signs Vital signs: Vital Signs Temp 98.1 F 04/23/19 08:00 Pulse 60 04/23/19 13:08 Resp 18 04/23/19 13:08 BP 127/62 04/23/19 13:08 Pulse Ox 98 04/23/19 13:08 Intake & Output 04/22/19 04/23/19 04/23/19 18:59 06:59 18:59 Intake Total 350 250 Balance 350 250 Weight 96 kg Intake: Oral 350 250 Other: Voiding Method Toilet Toilet # Voids 5 3 2 - Exam General: [non toxic], [no distress], [appears at stated age] Derm: [warm], [dry] Head: [atraumatic], [normocephalic], [symmetric] Eyes: [EOMI], [no lid lag], [anicteric sclera] Mouth: [no lip lesion], [mucus membranes moist] Cardiovascular: [S1S2 reg], [no murmur], [positive DP pulse bilateral], [pal pable ICD placed left chest] Lungs: [CTA bilateral], [no rhonchi, no rales] , [no accessory muscle use] Abdominal: [soft], [ nontender to palpation], [no guarding], [no appreciable organomegaly] Ext: [no gross muscle atrophy], [no edema], [no contractures] Neuro: [no focal neuro deficits] Psych: [Alert], [oriented], [appropriate affect] - Labs CBC & Chem 7: 04/23/19 05:37 04/23/19 05:37 Labs: Abnormal Lab Results - Last 24 Hours (Table) 04/23/19 04/23/19 Range/Units 05:37 05:37 RBC 4.09 L (4.30-5.90) m/uL Glucose 101 H (74-99) mg/dL Assessment and Plan Assessment: Syncope Nonsustained ventricular tachycardia Chronic systolic CHF EF 15-20% post ICD placement Resolved: Hyperkalemia Likely due to arrhythmia. Troponin 0.029, 0.028, 0.030 with EKG showing ventricular pacemaker, ACS ruled out. Plans: Telemetry monitoring. Fall precautions. Follow cardiology consultation. Plans: As per cardiology plans, continue Coreg 12.5 mg by mouth twice a day along with sotalol 80 mg by mouth twice a day. Discussed with Dr. Patel, plans to observe patient overnight for possible discharge tomorrow? Depends on Dr. Napier recommendations. Echocardiogram shows EF 20-25% with hypokinetic wall motion. Also diastolic dysfunction. Plans: Continue beta kike. Continue Lasix. Started on Entresto. [Patient admitted after syncopal episode likely due to nonsustained V. tach. Cardiology is on board. Likely DC in 1-2 days.]
[2019-04-23] MEDS: GABAPENTIN 400 MG CAP PO SCH ×2 (20:20→22:05)
[2019-04-23] MEDS: ASPIRIN 81 MG PO SCH (20:20)
[2019-04-23] MEDS: ATORVASTATIN 40 MG TAB PO SCH (20:20)
[2019-04-24] MEDS: CARVEDILOL 12.5 MG TAB PO SCH (07:00)
[2019-04-24 07:16] LABS: Basophils % (A) 1 %; Eosinophils # (A) 0.2 k/uL (0-0.7); Eosinophils % (A) 3 %; HCT 44.6 % (39.0-53.0); HGB 15.1 gm/dL (13.0-17.5); Lymphocytes # (A) 1.2 k/uL (1.0-4.8); Lymphocytes % (A) 22 %; MCH 32.1 pg (25.0-35.0); MCHC 33.8 g/dL (31.0-37.0); Mean Platelet Volume 7.4; Monocytes # (A) 0.5 k/uL (0-1.0); Monocytes % (A) 9 %; Neutrophils # (A) 3.3 k/uL (1.3-7.7); Neutrophils % (A) 62 %; Platelet Count 225 k/uL (150-450); RDW 14.9 % (11.5-15.5); WBC 5.3 k/uL (3.8-10.6)
[2019-04-24 07:26] LABS: Calcium 9.5 mg/dL (8.4-10.2); Potassium 4.4 mmol/L (3.5-5.1)
[2019-04-24] MEDS: SACUBITRIL/VALSARTAN 24 MG-26 MG TABLET PO SCH (08:37)
[2019-04-24] MEDS: HEPARIN SODIUM,PORCINE 5,000 UNIT/ML 1 ML VIAL SQ SCH (08:37)
[2019-04-24] MEDS: FUROSEMIDE 20 MG TAB PO SCH (08:37)
[2019-04-24] MEDS: SOTALOL 80 MG TAB PO SCH (08:37)
[2019-04-24] MEDS: GABAPENTIN 400 MG CAP PO SCH (08:37)
[2019-04-24 10:17] VITALS: RESP 18
--- NOTE | 2019-04-24 10:52 | P.PN ---
Subjective Progress Note Date: 04/24/19 Principal diagnosis: V. tach Patient was seen and examined. No acute events overnight. Patient denies any chest pain, shortness of breath or palpitations. No nausea or vomiting. No fever or chills. Objective - Vital Signs Vital signs: Vital Signs Temp 98.2 F 04/24/19 08:00 Pulse 60 04/24/19 08:00 Resp 18 04/24/19 08:00 BP 112/65 04/24/19 08:00 Pulse Ox 97 04/24/19 08:00 Intake & Output 04/23/19 04/24/19 04/24/19 18:59 06:59 18:59 Intake Total 850 540 Output Total 350 Balance 500 540 Weight 93 kg Intake: Oral 850 540 Output: Urine 350 Other: Voiding Method Toilet Toilet # Voids 1 1 # Bowel Movements 1 - Exam General: [non toxic], [no distress], [appears at stated age] Derm: [warm], [dry] Head: [atraumatic], [normocephalic], [symmetric] Eyes: [EOMI], [no lid lag], [anicteric sclera] Mouth: [no lip lesion], [mucus membranes moist] Cardiovascular: [S1S2 reg], [no murmur], [positive DP pulse bilateral], [palpable ICD placed left chest] Lungs: [CTA bilateral], [no rhonchi, no rales] , [no accessory muscle use] Abdominal: [soft], [ nontender to palpation], [no guarding], [no appreciable organomegaly] Ext: [no gross muscle atrophy], [no edema], [no contractures] Neuro: [no focal neuro deficits] Psych: [Alert], [oriented], [appropriate affect] - Labs CBC & Chem 7: 04/24/19 06:53 04/24/19 06:53 Labs: Abnormal Lab Results - Last 24 Hours (Table) 04/24/19 Range/Units 06:53 Carbon Dioxide 31 H (22-30) mmol/L Glucose 110 H (74-99) mg/dL Assessment and Plan Assessment: Syncope Nonsustained ventricular tachycardia Chronic systolic CHF EF 15-20% post ICD placement Resolved: Hyperkalemia Likely due to arrhythmia. Troponin 0.029, 0.028, 0.030 with EKG showing ventricular pacemaker, ACS ruled out. Plans: Telemetry monitoring. Fall precautions. Follow cardiology consultation. Plans: As per cardiology plans, continue Coreg 12.5 mg by mouth twice a day along with sotalol 80 mg by mouth twice a day. Waiting on Dr. Napier recommendations. Echocardiogram shows EF 20-25% with hypokinetic wall motion. Also diastolic dysfunction. Plans: Continue beta kike. Continue Lasix. Continue Entresto. [Patient admitted after syncopal episode likely due to nonsustained V. tach. DC planning based on Dr. Napier recommendations.]
--- NOTE | 2019-04-24 11:45 | P.PN ---
Subjective Patient is seen and examined sitting up in the chair reading the newspaper. He denies any symptoms of chest pain, shortness of breath, dizziness or palpitations. Telemetry tracings reviewed and unremarkable. Blood pressure 134/83 with a heart rate of 60. He received his first dose of Entresto this morning. Dr. Napier evaluated the patient yesterday and scheduled him for an outpatient VT ablation. Laboratory data reviewed, WBC 5.3, hemoglobin 15.1, platelets 225, sodium 141, potassium 4.4, creatinine 1.03. GENERAL: Well-appearing, well-nourished and in no acute distress. NECK: Supple without JVD or thyromegaly. LUNGS: Breath sounds clear to auscultation bilaterally. Respiration equal and unlabored. No wheezes, rales or rhonchi. HEART: Regular rate and rhythm without murmurs, rubs or gallops. S1 and S2 heard. EXTREMITIES: Normal range of motion, no edema. No clubbing or cyanosis. Peripheral pulses intact. ASSESSMENT Symptomatic sustained ventricular tachycardia History of ischemic cardiomyopathy status post AICD implantation Coronary artery disease Dyslipidemia Hypertension PLAN Patient is maintained on sotalol and entesto per Dr. Napier. We will ask the telephonic case manager to check the cost of entresto prior to discharge. Dr. Napier has recommended an outpatient VT ablation and this will be set up with the patient through the office. Nurse Practitioner note has been reviewed, I agree with a documented findings and plan of care. Patient was seen and examined. Objective - Vital Signs Vital signs: Vital Signs Temp 98.2 F 04/24/19 08:00 Pulse 60 04/24/19 08:00 Resp 18 04/24/19 08:00 BP 112/65 04/24/19 08:00 Pulse Ox 97 04/24/19 08:00 Intake & Output 04/23/19 04/24/19 04/24/19 18:59 06:59 18:59 Intake Total 850 540 Output Total 350 Balance 500 540 Weight 93 kg Intake: Oral 850 540 Output: Urine 350 Other: Voiding Method Toilet Toilet # Voids 1 1 # Bowel Movements 1 - Labs CBC & Chem 7: 04/24/19 06:53 04/24/19 06:53 Labs: Abnormal Lab Results - Last 24 Hours (Table) 04/24/19 Range/Units 06:53 Carbon Dioxide 31 H (22-30) mmol/L Glucose 110 H (74-99) mg/dL
[2019-04-24 12:24] VITALS: BP 94/56; TEMP 97.8
== END 2019-04-24 16:10 | disposition home or self-care (01) | DRG 309 ==
LOC: EC 17:47 → 3SCARD 20:42 → 2SICU 04-22 01:42 → 3SCARD 04-23 12:29
PROVIDERS: ADMIT Internal Medicine; ATTEND Internal Medicine
PROC: 4A02X4Z Measurement of Cardiac Electrical Activity, External Approach (ICD-10-PCS; principal; 2019-04-22)
PROC: 4A02XFZ Measurement of Cardiac Rhythm, External Approach (ICD-10-PCS; 2019-04-22)
DX: I47.2 Ventricular tachycardia (principal); I50.22 Chronic systolic (congestive) heart failure; E87.5 Hyperkalemia; I11.0 Hypertensive heart disease with heart failure; I25.5 Ischemic cardiomyopathy; E78.5 Hyperlipidemia, unspecified; I25.10 Atherosclerotic heart disease of native coronary artery without angina pectoris; K44.9 Diaphragmatic hernia without obstruction or gangrene; M54.2 Cervicalgia; M19.90 Unspecified osteoarthritis, unspecified site; I25.2 Old myocardial infarction; Z79.82 Long term (current) use of aspirin; Z79.899 Other long term (current) drug therapy; Z87.891 Personal history of nicotine dependence; Z95.810 Presence of automatic (implantable) cardiac defibrillator; Z85.51 Personal history of malignant neoplasm of bladder; Z95.1 Presence of aortocoronary bypass graft; Z98.890 Other specified postprocedural states; Z87.01 Personal history of pneumonia (recurrent); Z80.3 Family history of malignant neoplasm of breast; Z82.49 Family history of ischemic heart disease and other diseases of the circulatory system
CPT/HCPCS: 36415; 71046; 80048; 80053; 83735; 83880; 84484; 85025; 85027; 85610; 85730; 93005; 93306; 99285

== ENCOUNTER 2019-05-10 09:12 | Day surgery (SDC) | payer MEDICARE, OTHER ==
[2019-05-07 08:34] VITALS: BMI 29.4
[2019-05-10] MEDS: SODIUM CHLORIDE 0.9% 1,000 ML IV SCH (09:47)
[2019-05-10] MEDS ORDERED: LIDOCAINE 1% INJ 10MG/ML (20 ML MDV) ONE (10:31)
[2019-05-10] MEDS ORDERED: PROPOFOL 10 MG/ML 20 ML VIAL IV ONE (10:39)
[2019-05-10] MEDS ORDERED: ROPIVACAINE 5MG/ML 20ML VIAL ONE (10:39)
[2019-05-10] MEDS ORDERED: diphenhydrAMINE 50 MG/ML 1 ML VIAL ONE (10:39)
[2019-05-10] MEDS ORDERED: PHENYLEPHRINE-0.9% NACL SYG 1 MG/10 ML SYRINGE ONE (10:39)
[2019-05-10] MEDS ORDERED: MIDAZOLAM 2 MG/2 ML VIAL ONE (10:39)
[2019-05-10] MEDS ORDERED: HEPARIN SODIUM,PORCINE 10,000 UNIT/ML 1 ML VIAL ONE (10:39)
[2019-05-10] MEDS ORDERED: fentaNYL (PF) 50 MCG/ML 2 ML AMP ONE (10:39)
[2019-05-10] MEDS ORDERED: FUROSEMIDE 10 MG/ML 2 ML VIAL ONE (10:39)
[2019-05-10] MEDS ORDERED: PROTAMINE SULFATE 10 MG/ML 5 ML VIAL IV ONE (10:39)
[2019-05-10] MEDS ORDERED: LIDOCAINE 1% INJ 10MG/ML (20 ML MDV) SQ ONE (11:24)
[2019-05-10] MEDS ORDERED: HEPARIN SODIUM (1,000 UNIT/ML) 1,000 UNIT in SODIUM CHLORIDE 0.9% 1,000 ML IRRIGATION ONE (11:54)
[2019-05-10] MEDS ORDERED: HEPARIN SOD,PORK IN 0.45% NACL 25,000 UNIT in 0.45% NACL 1 250ML.BAG IV ONE ×2 (11:54)
[2019-05-10] MEDS ORDERED: ACETAMINOPHEN TAB 325 MG TAB PO PRN (14:44)
[2019-05-10] MEDS ORDERED: HYDROcodone/APAP 5-325MG 1 EACH TAB PO PRN (14:44)
[2019-05-10] MEDS ORDERED: ACETAMINOPHEN IV (For NPO) 1,000 MG in EMPTY BAG 1 BAG IVPB ONE (15:30)
[2019-05-10] MEDS: LACTATED RINGERS 1,000 ML IV SCH (16:51)
[2019-05-10] MEDS: GABAPENTIN 400 MG CAP PO SCH ×2 (16:52→19:49)
--- NOTE | 2019-05-10 17:00 | PCN ---
PROCEDURE NOTE Sarkis Waterman is a 74-year-old male patient of Dr. Jj and Dr. Piedra who presented with recurrent ventricular tachycardia. He underwent VT ablation in 2016. He has a biventricular ICD, ischemic cardiomyopathy, and had a large inferior wall NJ in the past. The patient was brought to the EP lab in a fasting state. Written informed consent was obtained prior to the procedure. He was in a paced rhythm at the start of the study. The procedure was performed under conscious sedation. IV antibiotics were administered. Two venous sheaths in the right femoral vein and one arterial sheath in the right femoral artery. A long sheath was placed in the aorta, and via this first a PentaRay catheter and later a mapping ablation catheter were placed. Diagnostic catheters were placed in the venous sheaths, intracardiac echo catheter and right ventricular catheter. At first, 3D electroanatomic mapping was performed. Intracardiac echo was used to define the LV anatomy and the scar borders. The scar extended from the inferior septum to the mid lateral wall. Voltage mapping was performed and a large area of scar was noted in the mid inferior wall. Later the scar was defined with high-output pacing to define areas of noncapture. For the most part, there was noncapture within the entire inferior wall that had been ablated previously. Thereafter, ventricular extrastimulation was performed with up to double extrastimuli from 2 drive trains and later bursts in the right ventricle. With burst stimulation at 320 milliseconds, ventricular tachycardia at a cycle length of 410 milliseconds was induced. The PentaRay catheter had been placed at the basal septal edge of the scar in an area of possible potential isthmus. Limited activation mapping was performed in this area, but the patient became very hypotensive down to 50 mmHg and then subsequently degenerated into ventricular fibrillation, for which he was defibrillated successfully. Following that, the mapping ablation catheter was placed and the scar in the inferior wall was carefully defined. There were no potential isthmi noted within the inferior wall. Therefore pace mapping was then performed at the site of early activation that was obtained on the PentaRay, and a near-perfect pace map was obtained at this edge. RF ablation along the basal inferior septal edge was performed with good power and contact force. Following that, noncapture was noted along this lesion set. Thereafter, ventricular extrastimulation was once again performed, first from the RV apex and then from the septum, up double extrastimuli and burst stimulation on Isuprel. No other VT could be induced. No sustained VT was induced. An occasional ventricular triplet of a totally different morphology was induced. All catheters were then removed and the venous sheaths and arterial sheaths were removed and Angio-Seal was applied. Hemostasis was assured. Heparin was stopped. Prior to the start of the procedure, the tachy therapies were turned off. RV pacing was performed through the procedure. At the end of the procedure biventricular pacing was performed. The biventricular pacing vector was changed to LV and RV . The LV/RV offset was programmed at 100 milliseconds. Despite that, there the QRS width was predominantly a left bundle branch block type. The VT zone was programmed under MADIT- RIT programming but with a shorter detection interval in the VT zone. The LV threshold was 2.3 V at 1 millisecond. The atrial threshold 0.9 V at 0.5 millisecond, pacing impedance of 510 ohms, P-waves 4.5 mV. RV pacing threshold was 1.6 V at 0.8 millisecond, pacing impedance of 397 ohms, R-waves 11.6 mV, LV pacing impedance 1090 ohms, shock impedance 52 ohms. The LV pacing threshold was 2 V at 1 millisecond. The patient tolerated the procedure well without any acute complications. PLAN: Continue current medications without any changes. Anticoagulation for one month. MMODL / IJN: [id number] /
[2019-05-10] MEDS: CARVEDILOL 12.5 MG TAB PO SCH (18:20)
[2019-05-10] MEDS: SOTALOL 80 MG TAB PO SCH (19:49)
[2019-05-10] MEDS: SACUBITRIL/VALSARTAN 24 MG-26 MG TABLET PO SCH (19:49)
[2019-05-10] MEDS: APIXABAN 5 MG TAB PO SCH (19:49)
[2019-05-10] MEDS ORDERED: ASPIRIN 81 MG PO SCH (21:00)
[2019-05-10] MEDS ORDERED: ATORVASTATIN 40 MG TAB PO SCH (21:00)
[2019-05-10 23:32] VITALS: RESP 18
[2019-05-11] MEDS: LACTATED RINGERS 1,000 ML IV SCH (04:15)
[2019-05-11] MEDS: SODIUM CHLORIDE 0.9% 1,000 ML IV SCH (04:15)
[2019-05-11] MEDS: CARVEDILOL 12.5 MG TAB PO SCH (07:32)
[2019-05-11] MEDS: APIXABAN 5 MG TAB PO SCH (07:32)
[2019-05-11] MEDS: GABAPENTIN 400 MG CAP PO SCH (07:32)
[2019-05-11] MEDS: SACUBITRIL/VALSARTAN 24 MG-26 MG TABLET PO SCH (07:32)
[2019-05-11] MEDS: SOTALOL 80 MG TAB PO SCH (07:33)
[2019-05-11 07:41] VITALS: TEMP 97.4
[2019-05-11] MEDS ORDERED: FUROSEMIDE 20 MG TAB PO SCH (09:00)
[2019-05-11 11:19] VITALS: BP 118/75; PULSE 55
--- NOTE | 2019-05-11 11:35 | P.DS ---
Providers Attending physician: Mark Napier Primary care physician: [facility] Course: Patient is a 74-year-old male with a past medical history of CAD, prior inferior wall DC, ischemic cardiomyopathy status post biventricular ICD, and recurrent ventricular tachycardia who presented for management of his recurrent ventricular tachycardia. Yesterday, he underwent a diagnostic EP study which revealed easily inducible V. tach at 150 beats per minute with associated hypotension and is rated into V. fib. Subsequently he underwent a successful ventricular tachycardia ablation and no further ventricular tachycardia or arrhythmias could be induced afterwards. Patient has done well overnight. No acute events. His device was reprogrammed. Patient seen and examined resting comfortably in bed. States his pain has been well-controlled. Denies any chest pain, shortness of breath, or palpitations. He has been able to get up out of bed and walk around without any dizziness or lightheadedness. He tolerated his breakfast well. No bleeding issues. Most recent labs in mid April reviewed, WBC 5.3, hemoglobin 15.1, platelets 225, potassium 4.4, BUN 16, creatinine 1.03, magnesium 2.2 EKG today showed biventricular pacing Temperature 97.4F, pulse 55, respirations 18, blood pressure 118/70, oxygen saturation 99% on room air Patient seen and examined resting comfortably in bed, in no acute distress Lungs clear to auscultation bilaterally, no wheezing rhonchi or crackles Heart is regular, no murmurs or rubs noted No elevated JVD No lower extremity edema Right groin minimal tender to palpation, no bruising or hematomas Impression Recurrent ventricular tachycardia status post ventricular tachycardia ablation Ischemic cardiomyopathy status post biventricular ICD placement CAD Prior inferior wall DC Plan Continue anticoagulation with eliquis for the next month for stroke prevention Continue all other medications including sotalol Follow-up with Dr. Piedra in one week Plan - Discharge Summary Discharge Rx Participant: Yes New Discharge Prescriptions: Continue Atorvastatin [Lipitor] 40 mg PO HS Aspirin 162 mg PO HS Furosemide [Lasix] 20 mg PO DAILY Ubidecarenone [Co Q-10] 100 mg PO DAILY Calcium/Magnesium/Zinc [Dffrivf-Nvbeocmpk-Hvfa Tablet] 1 tab PO DAILY Ascorbic Acid [Vitamin C] 500 mg PO DAILY Vitamin B Complex 1 cap PO DAILY Gabapentin [Neurontin] 400 mg PO TID #90 cap Sotalol [Betapace] 80 mg PO BID #180 tablet Carvedilol [Coreg] 12.5 mg PO BID #180 tablet Sacubitril/Valsartan [Entresto 24 mg-26 mg Tablet] 1 each PO BID #180 tablet Discharge Medication List Ascorbic Acid [Vitamin C] 500 mg PO DAILY 03/10/16 [History] Aspirin 162 mg PO HS 03/10/16 [History] Atorvastatin [Lipitor] 40 mg PO HS 03/10/16 [History] Calcium/Magnesium/Zinc [Ptgywdi-Pvwyfmxyj-Tucl Tablet] 1 tab PO DAILY 03/10/16 [History] Furosemide [Lasix] 20 mg PO DAILY 03/10/16 [History] Ubidecarenone [Co Q-10] 100 mg PO DAILY 03/10/16 [History] Vitamin B Complex 1 cap PO DAILY 08/01/16 [History] Gabapentin [Neurontin] 400 mg PO TID #90 cap 03/10/19 [Rx] Carvedilol [Coreg] 12.5 mg PO BID #180 tablet 04/24/19 [Rx] Sacubitril/Valsartan [Entresto 24 mg-26 mg Tablet] 1 each PO BID #180 tablet 04/24/19 [Rx] Sotalol [Betapace] 80 mg PO BID #180 tablet 04/24/19 [Rx]
== END 2019-05-11 17:12 | disposition home or self-care (01) ==
LOC: CATHEP 09:12 → 1SOBS 14:36 → CATHEP 05-11 17:12
PROVIDERS: ATTEND Internal Medicine Clinical Cardiac Electrophysiology
DX: I47.2 Ventricular tachycardia (principal); I25.5 Ischemic cardiomyopathy; E78.5 Hyperlipidemia, unspecified; I10 Essential (primary) hypertension; I25.2 Old myocardial infarction; Z72.0 Tobacco use; Z95.1 Presence of aortocoronary bypass graft; Z95.810 Presence of automatic (implantable) cardiac defibrillator; Z79.82 Long term (current) use of aspirin; Z79.899 Other long term (current) drug therapy
CPT/HCPCS: 93623; 93662; 93654; C1760; C1894; C1769 ×3; C1731; C1893; C1732; C1730; J2720; J1644 ×3; J1940; J0690; J2001; J2370; J2704; J2795

== ENCOUNTER → 2019-06-02 | Outpatient (CLI) | payer MEDICARE, OTHER ==
[2019-06-02 12:32] VITALS: BP 129/78; PULSE 60; RESP 16
--- NOTE | 2019-06-03 07:05 | P.PAINPG ---
Subjective Progress Note Date: 06/02/19 This 74 years old male with a history of severe neck pain is very close with cervical spondylosis, with facet arthropathy, a few months ago we have done radiofrequency thermocoagulation of the cervical medial branch, he reported that his neck pain improved, is complaining of knee pain, and hand pain, he denies any motor or sensory deficits he denies any numbness or tingling sensation, and his currently on Neurontin 400 mg 3 times a day and he wished to wean himself off the Neurontin Objective - Vital Signs Vital signs: Vital Signs Temp Pulse 60 06/02/19 12:24 Resp 16 06/02/19 12:24 BP 129/78 06/02/19 12:24 Pulse Ox 98 06/02/19 12:24 Intake & Output 06/02/19 06/03/19 06/03/19 18:59 06:59 18:59 Weight 95.254 kg - Exam Physical Examinations : -Constitutiona : Cooperative , not in acute distress . -HEENT : nech : supple , no Lymphadenopathy , normal thyroid size . eyes : no ptosis , no icterus, no photophobia . - neurologic : Cranial nerve II to XII intact , no focal neurological deffecit . -psychatric : alert , oriented X 3 , appropriate affect , intact judgment and insight . -Lymphatic : no Lymphadenopathy . - musculoskeltal : Cervical Spine motor stregnth in the deltoid and biceps, normal right side , normal Left side motor stregnth biceps and the wrist extensors normal right side ,normal left side . motor stregnth in the triceps muscle . normal Right side , normal Left side Lumber spine moter stegnth lower extremities ,thigh and legs 5/5 Right side , 5/5 Left side Assessment and Plan Plan: Assessment and plan= chronic neck pain secondary to cervical spondylosis, with facet arthropathy, neck pain improved after radiofrequency ablation of the medial branch cervical area Patient currently on Neurontin and he wished to stop using the Neurontin, he is currently on 400 mg 3 times a day it will be decreased to 400 mg twice a day and then 400 mg a day Then after that he will use Neurontin 100 mg 3 times a day then 100 mg twice a day and then he will stop using it. Time with Patient: Less than 30 PQRS Measure Charge Sheet Measure #130: Documentation of Current Meds in Medical Chart: Patient's medications documented in chart Measure #226: Tobacco Use: Screen & Cessation Intervention: Pt not a tobacco user Measure #111: Pneumonia Vaccination: Pneumococcal vaccine administered or previously received Measure #47: Advance Care Plan: Advance care planning discussed & documented, pt chose/unable to give Measure #412: Opioid Treatment Agreement: No documentation of signed opioid treatment agreement Measure #408: Opioid Therapy Follow-up Evaluation: Patient had NO f/u eval minimum every 3 months during opioid therapy Measure #317: Preventitive Care & Scrn High Bld Press & F/U: Normal blood pressure, f/u not required Measure #128: Body Mass Index (BMI) Screening & Follow-up: BMI documented ABOVE normal parameters - f/u documented Measure #131: Pain Assessment & Follow-up: Pain positive & plan documented, Follow-up PRN Measure #431: Unhealthy Alcohol Use Preventative Care & Scrn: Patient not identified as an unhealthy alcohol user PQRS Narrative: Smoking Status Former smoker Blood Pressure 129/78 Pain Intensity [Generalized] 6 Scale Used Numeric (1 - 10) Hx Alcohol Use (MH) No Home Medications: Ambulatory Orders Ascorbic Acid [Vitamin C] 500 mg PO DAILY 03/10/16 Aspirin 162 mg PO HS 03/10/16 Atorvastatin [Lipitor] 40 mg PO HS 03/10/16 Calcium/Magnesium/Zinc [Chnhklr-Wbzyjjegk-Kyjn Tablet] 1 tab PO DAILY 03/10/16 Furosemide [Lasix] 20 mg PO DAILY 03/10/16 Ubidecarenone [Co Q-10] 100 mg PO DAILY 03/10/16 Vitamin B Complex 1 cap PO DAILY 08/01/16 Gabapentin [Neurontin] 400 mg PO TID #90 cap 03/10/19 Carvedilol [Coreg] 12.5 mg PO BID #180 tablet 04/24/19 Sacubitril/Valsartan [Entresto 24 mg-26 mg Tablet] 1 each PO BID #180 tablet 04/24/19 Sotalol [Betapace] 80 mg PO BID #180 tablet 04/24/19 Controlled Substance Measures - Controlled Substance Measures Is patient prescribed a controlled substance at discharge?: Yes When asked, does pt state using other controlled substances?: No If prescribed controlled substance>3 days was MAPS reviewed?: Yes If Rx opioid, was Start Talking consent form obtained?: Yes If opioid is for acute pain is fill amount 7 days or less?: No Was information provided regarding opioid addiction?: Yes
== END | disposition home or self-care (01) ==
LOC: PNWHC3 11:46
PROVIDERS: ATTEND Specialist
DX: G89.29 Other chronic pain (principal); M47.812 Spondylosis without myelopathy or radiculopathy, cervical region; M46.92 Unspecified inflammatory spondylopathy, cervical region; Z79.899 Other long term (current) drug therapy; Z79.82 Long term (current) use of aspirin; Z87.891 Personal history of nicotine dependence
CPT/HCPCS: 99211

== ENCOUNTER 2019-07-06 13:29 | Observation (INO) | payer MEDICARE, OTHER ==
[2019-07-06] MEDS ORDERED: PANTOPRAZOLE 40 MG/10 ML VIAL IVP STA (14:28)
[2019-07-06] MEDS ORDERED: SODIUM CHLORIDE 0.9% 1,000 ML IV STA ×2 (14:28)
[2019-07-06] MEDS ORDERED: METOCLOPRAMIDE 5 MG/ML 2 ML VIAL IVP STA (14:28)
[2019-07-06] MEDS ORDERED: MORPHINE SULFATE 4 MG/ML SYRINGE IVP STA (14:30)
[2019-07-06] MEDS ORDERED: ASPIRIN 81 MG PO STA (14:30)
--- NOTE | 2019-07-06 14:43 | ED ---
Abdominal Pain HPI - General Chief Complaint: Abdominal Pain Stated Complaint: Abd pain, Rib pain Time Seen by Provider: 07/06/19 13:56 Source: patient, RN notes reviewed, old records reviewed Mode of arrival: wheelchair Limitations: no limitations - History of Present Illness Initial Comments: Patient is a 74-year-old male who presents emergency Department today with substernal and epigastric abdominal pain, symptoms starting around 9 PM last night. He reports that after eating dinner he felt quite full. He states that he tried taking multiple antacid medication and Pepcid but reports he normally for the symptoms. Patient reports that he has previously had heart attacks with similar complaints. That caused the Patient to be anxious and felt the need to come to the emergency room. Patient's sander hand is Dr. Piedra. Patient reports he does have a pacemaker. He denies any shortness of breath or reproducible pain at this time. - Related Data Home Medications Medication Instructions Recorded Confirmed Ascorbic Acid [Vitamin C] 500 mg PO DAILY 03/10/16 06/02/19 Aspirin 162 mg PO HS 03/10/16 06/02/19 Atorvastatin [Lipitor] 40 mg PO HS 03/10/16 06/02/19 Calcium/Magnesium/Zinc 1 tab PO DAILY 03/10/16 06/02/19 [Mjynwpt-Zntkzopyu-Julw Tablet] Furosemide [Lasix] 20 mg PO DAILY 03/10/16 06/02/19 Ubidecarenone [Co Q-10] 100 mg PO DAILY 03/10/16 06/02/19 Vitamin B Complex 1 cap PO DAILY 08/01/16 06/02/19 Previous Rx's Medication Instructions Recorded Gabapentin [Neurontin] 400 mg PO TID #90 cap 03/10/19 Carvedilol [Coreg] 12.5 mg PO BID #180 tablet 04/24/19 Sacubitril/Valsartan [Entresto 24 1 each PO BID #180 tablet 04/24/19 mg-26 mg Tablet] Sotalol [Betapace] 80 mg PO BID #180 tablet 04/24/19 Allergies Allergy/AdvReac Type Severity Reaction Status Date / Time No Known Allergies Allergy Verified 07/06/19 13:48 Review of Systems ROS Statement: Those systems with pertinent positive or pertinent negative responses have been documented in the HPI. ROS Other: All systems not noted in ROS Statement are negative. Past Medical History Past Medical History: Coronary Artery Disease (CAD), Cancer, Heart Failure, Eye Disorder, Hearing Disorder / Deafness, Myocardial Infarction (OR), Osteoar thritis (OA), Pneumonia, Sleep Apnea/CPAP/BIPAP Additional Past Medical History / Comment(s): See Dr Napier's H&P. Recent hospitalization for V-Tach. Arrythmia (past epidodes v-tach), [place] X2. Hx past bladder cancer 3-4 yrs ago. Hiatal hernia. Chronic neck pain. Floaters right eye. "Some hearing loss, right ear." Last Myocardial Infarction Date:: 1994 History of Any Multi-Drug Resistant Organisms: None Reported Past Surgical History: AICD, Back Surgery, Cardiac Ablation, Coronary Bypass/CABG, Orthopedic Surgery, Pacemaker Additional Past Surgical History / Comment(s): Tumor removed from bladder, EP Study, cardioversion/ablation X2 - LAST 06/2017. DB CABG 1985. Tube left ear 2007, left rotator cuff repair, pilonidal surgery, bilateral knee arthroscopy, pain clinic procedure. Past Anesthesia/Blood Transfusion Reactions: Previous Problems w/ Anesthesia Additional Past Anesthesia/Blood Transfusion Reaction / Comment(s): Slow to wake up after. Type of Cardiac Device: AICD Device Placement Date:: 04/2013 - [employer] Past Psychological History: No Psychological Hx Reported Smoking Status: Former smoker - Past Family History Mother Family Medical History: Cancer Additional Family Medical History / Comment(s): Breast cancer. Father Family Medical History: Myocardial Infarction ([place]) Additional Family Medical History / Comment(s): at age 46 from [place]- ( 4 months before pt was born) General Exam Limitations: no limitations General appearance: alert, in no apparent distress Head exam: Present: atraumatic, normocephalic, normal inspection Eye exam: Present: normal appearance, PERRL, EOMI. Absent: scleral icterus, conjunctival injection, periorbital swelling ENT exam: Present: normal exam, mucous membranes moist Neck exam: Present: normal inspection. Absent: tenderness, meningismus, lymphadenopathy Respiratory exam: Present: normal lung sounds bilaterally. Absent: respiratory distress, wheezes, rales, rhonchi, stridor Cardiovascular Exam: Present: regular rate, normal rhythm, normal heart sounds. Absent: systolic murmur, diastolic murmur, rubs, gallop, clicks GI/Abdominal exam: Present: soft, normal bowel sounds. Absent: distended, tenderness, guarding, rebound, rigid Extremities exam: Present: normal inspection, full ROM, normal capillary refill. Absent: tenderness, pedal edema, joint swelling, calf tenderness Back exam: Present: normal inspection Neurological exam: Present: alert, oriented X3, CN II-XII intact Psychiatric exam: Present: normal affect, normal mood Skin exam: Present: warm, dry, intact, normal color. Absent: rash Course Vital Signs 07/06/19 13:46 Temperature 98.1 F Pulse Rate 60 Respiratory 20 Rate Blood Pressure 133/78 O2 Sat by Pulse 99 Oximetry Medical Decision Making - Medical Decision Making 74-year-old male. Alert and oriented. Today for epigastric substernal pain. This is similar to his previous heart attack. He states initially thought it was related to GI discomfort was taken multiple ohiq-zej-opnpjrb medications w ith no relief. Patient was given IV fluids labwork obtained. Patient's labwork was reviewed on Friday unremarkable. Troponin was 0.018. EKG shows a ventricular paced rhythm. His sander hand Dr. Piedra. On reevaluation had some improvements pain but now rate 74 5 out of 10. I discussed with the Patient for cardiac observation. Patient is agreeable to plan. Discussed case discussed with Dr. Noel discussed the case with Dr. Mclaughlin - Lab Data Result diagrams: 07/06/19 15:00 07/06/19 15:00 Lab Results 07/06/19 07/06/19 07/06/19 Range/Units 15:00 15:00 15:00 WBC 7.2 (3.8-10.6) k/uL RBC 4.28 L (4.30-5.90) m/uL Hgb 14.0 (13.0-17.5) gm/dL Hct 40.2 (39.0-53.0) % MCV 93.9 (80.0-100.0) fL MCH 32.8 (25.0-35.0) pg MCHC 34.9 (31.0-37.0) g/dL RDW 13.0 (11.5-15.5) % Plt Count 235 (150-450) k/uL Neutrophils % 74 % Lymphocytes % 15 % Monocytes % 7 % Eosinophils % 2 % Basophils % 0 % Neutrophils # 5.3 (1.3-7.7) k/uL Lymphocytes # 1.0 (1.0-4.8) k/uL Monocytes # 0.5 (0-1.0) k/uL Eosinophils # 0.1 (0-0.7) k/uL Basophils # 0.0 (0-0.2) k/uL PT 10.0 (9.0-12.0) sec INR 0.9 (<1.2) APTT 22.8 (22.0-30.0) sec Sodium 140 (137-145) mmol/L Potassium 4.5 (3.5-5.1) mmol/L Chloride 106 (98-107) mmol/L Carbon Dioxide 25 (22-30) mmol/L Anion Gap 9 mmol/L BUN 20 (9-20) mg/dL Creatinine 0.83 (0.66-1.25) mg/dL Est GFR (CKD-EPI)AfAm >90 (>60 ml/min/1.73 sqM) Est GFR (CKD-EPI)NonAf 86 (>60 ml/min/1.73 sqM) Glucose 124 H (74-99) mg/dL Calcium 9.7 (8.4-10.2) mg/dL Total Bilirubin 0.8 (0.2-1.3) mg/dL AST 33 (17-59) U/L ALT 27 (21-72) U/L Alkaline Phosphatase 40 (38-126) U/L Troponin I (0.000-0.034) ng/mL NT-Pro-B Natriuret Pep pg/mL Total Protein 7.1 (6.3-8.2) g/dL Albumin 4.2 (3.5-5.0) g/dL Amylase 32 (30-110) U/L Lipase 73 (23-300) U/L Urine Color Urine Appearance (Clear) Urine pH (5.0-8.0) Ur Specific [place] (1.001-1.035) Urine Protein (Negative) Urine Glucose (UA) (Negative) Urine Ketones (Negative) Urine Blood (Negative) Urine Nitrite (Negative) Urine Bilirubin (Negative) Urine Urobilinogen (<2.0) mg/dL Ur Leukocyte Esterase (Negative) 07/06/19 07/06/19 07/06/19 Range/Units 15:00 15:00 16:00 WBC (3.8-10.6) k/uL RBC (4.30-5.90) m/uL Hgb (13.0-17.5) gm/dL Hct (39.0-53.0) % MCV (80.0-100.0) fL MCH (25.0-35.0) pg MCHC (31.0-37.0) g/dL RDW (11.5-15.5) % Plt Count (150-450) k/uL Neutrophils % % Lymphocytes % % Monocytes % % Eosinophils % % Basophils % % Neutrophils # (1.3-7.7) k/uL Lymphocytes # (1.0-4.8) k/uL Monocytes # (0-1.0) k/uL Eosinophils # (0-0.7) k/uL Basophils # (0-0.2) k/uL PT (9.0-12.0) sec INR (<1.2) APTT (22.0-30.0) sec Sodium (137-145) mmol/L Potassium (3.5-5.1) mmol/L Chloride (98-107) mmol/L Carbon Dioxide (22-30) mmol/L Anion Gap mmol/L BUN (9-20) mg/dL Creatinine (0.66-1.25) mg/dL Est GFR (CKD-EPI)AfAm (>60 ml/min/1.73 sqM) Est GFR (CKD-EPI)NonAf (>60 ml/min/1.73 sqM) Glucose (74-99) mg/dL Calcium (8.4-10.2) mg/dL Total Bilirubin (0.2-1.3) mg/dL AST (17-59) U/L ALT (21-72) U/L Alkaline Phosphatase (38-126) U/L Troponin I 0.018 (0.000-0.034) ng/mL NT-Pro-B Natriuret Pep 797 pg/mL Total Protein (6.3-8.2) g/dL Albumin (3.5-5.0) g/dL Amylase (30-110) U/L Lipase (23-300) U/L Urine Color Yellow Urine Appearance Clear (Clear) Urine pH 6.0 (5.0-8.0) Ur Specific [place] 1.022 (1.001-1.035) Urine Protein Negative (Negative) Urine Glucose (UA) Negative (Negative) Urine Ketones Negative (Negative) Urine Blood Negative (Negative) Urine Nitrite Negative (Negative) Urine Bilirubin Negative (Negative) Urine Urobilinogen <2.0 (<2.0) mg/dL Ur Leukocyte Esterase Negative (Negative) 07/06/19 16:40 EKG shows ventricular paced rhythm with frequent AV dual paced Is a pattern of bigeminy. Abnormal EKG. Ventricular rate of 100 bpm. GA interval undetected. Respiration is 108 ms. QT QTc is 170/240 ms. - Radiology Data Radiology results: report reviewed Chest x-rays negative for any acute process. KUB shows no acute abdomen or maladies. Disposition Clinical Impression: Chest pain Disposition: ADMITTED IP TO THIS HOSP Condition: Stable Is patient prescribed a controlled substance at d/c from ED?: No Referrals: Agustin Jj MD [Primary Care Provider] - 1-2 days Time of Disposition: 16:42
[2019-07-06 15:16] LABS: Basophils % (A) 0 %; Eosinophils # (A) 0.1 k/uL (0-0.7); Eosinophils % (A) 2 %; HCT 40.2 % (39.0-53.0); Lymphocytes % (A) 15 %; MCH 32.8 pg (25.0-35.0); MCHC 34.9 g/dL (31.0-37.0); MCV 93.9 fL (80.0-100.0); Mean Platelet Volume 6.2; Monocytes # (A) 0.5 k/uL (0-1.0); Monocytes % (A) 7 %; Neutrophils # (A) 5.3 k/uL (1.3-7.7); Neutrophils % (A) 74 %; Platelet Count 235 k/uL (150-450); RBC 4.28 m/uL (4.30-5.90); WBC 7.2 k/uL (3.8-10.6)
[2019-07-06 15:20] LABS: ALT 27 U/L (21-72); AST 33 U/L (17-59); African American GFR (CKD) >90 (>60 ml/min/1.73 sqM); Albumin 4.2 g/dL (3.5-5.0); Alkaline Phosphatase 40 U/L (38-126); Amylase 32 U/L (30-110); Anion Gap 9 mmol/L; Blood Urea Nitrogen 20 mg/dL (9-20); Calcium 9.7 mg/dL (8.4-10.2); Carbon Dioxide 25 mmol/L (22-30); Chloride 106 mmol/L (98-107); Glucose 124 mg/dL (74-99); Non-African American GFR(CKD) 86 (>60 ml/min/1.73 sqM); Sodium 140 mmol/L (137-145); Total Bilirubin 0.8 mg/dL (0.2-1.3); Total Protein 7.1 g/dL (6.3-8.2)
[2019-07-06 15:21] LABS: Potassium 4.5 mmol/L (3.5-5.1)
[2019-07-06 15:22] LABS: INR 0.9 (<1.2); Partial Thromboplastin Time 22.8 sec (22.0-30.0)
--- NOTE | 2019-07-06 15:24 | XR ---
EXAMINATION TYPE: XR chest 2V DATE OF EXAM: 07/06/2019 COMPARISON: 04/21/2019 HISTORY: Shortness of breath TECHNIQUE: Frontal and lateral views of the chest are obtained. FINDINGS: Scattered senescent parenchymal changes noted. Hyperinflation compatible with COPD. No evidence for infiltrate. No evidence for atelectasis. Heart size is stable. Mediastinal structures are stable and grossly unremarkable. No evidence for hilar prominence. Degenerative changes dorsal spine. IMPRESSION: 1. No evidence for acute pulmonary disease.
--- NOTE | 2019-07-06 15:24 | XR ---
EXAMINATION TYPE: XR KUB DATE OF EXAM: 07/06/2019 COMPARISON: 03/10/2016 HISTORY: Pain TECHNIQUE: Single supine KUB image of the abdomen is obtained FINDINGS: Small bowel demonstrates no evidence for dilatation or air fluid levels. Gas and fecal material is seen in non-distended colon. No convincing evidence for pneumoperitoneum. No unusual calcifications. The lung bases are clear. The osseous structures are intact. IMPRESSION: 1. Overall nonobstructive bowel gas pattern.
[2019-07-06 16:10] LABS: Appearance,Urine Clear (Clear); Bilirubin,Urine Negative (Negative); Blood,Urine Negative (Negative); Color,Urine Yellow; Glucose,Urine (UA) Negative (Negative); Ketones,Urine Negative (Negative); Leukocyte Esterase,Urine Negative (Negative); Nitrite,Urine Negative (Negative); Protein,Urine Negative (Negative); Specific Gravity,Urine 1.022 (1.001-1.035); Urobilinogen,Urine <2.0 mg/dL (<2.0)
[2019-07-06] MEDS ORDERED: NITROGLYCERIN SL TABS 0.4 MG TAB SUBLINGUAL PRN (16:43)
--- NOTE | 2019-07-06 17:42 | P.HPIM ---
History of Present Illness H&P Date: 07/06/19 Chief Complaint: Epigastric pain 74-year-old male with PMH of CAD post CABG and stent placement, systolic CHF, history of ventricular tachycardia with defibrillator and ablation in the past presents to the ED for epigastric pain. Patient states around 9 PM he experienced epigastric pain. He describes the pain as constant and burning in nature. Pain is rated 7-8 out of 10 in severity without any radiating features. He attempted Tums without any relief. Patient states that he tried to eat crackers at around 10 PM which did not help either his pain persisted up until 3:30 AM where he attempted Tums and Pepto-Bismol. When his symptoms did not improve this prompted him to come to the ED. Patient states that he experienced similar symptoms in 1989 and was diagnosed with acute NV. He denies any history of heartburn. He does report a history of hiatal hernia but that had not bothered him in years. His last meal was around 6 PM consisted of chicken breast and potato wedges. He denies any cigarette smoking but admits to drinking alcohol socially. He sees Dr. Piedra and Dr. Napier as his new accounts representative. Patient denies any headache, lower extremity edema, nausea or vomiting, fever or chills, cough, shortness of breath, palpitations, changes in urination or bowel habits. He denies any dizziness, numbness/weakness/tingling of the extremities. In the ED, vital signs are stable. CBC, coagulation panel and CMP was unremarkable except for glucose of 124. Troponin was 0.018, EKG showing ventricular paced rhythm. Chest x-ray was negative. KUB was negative. Patient is admitted for chest pain, rule out acute coronary syndrome with cardiology consulted. Review of Systems Pertinent positives and negatives as discussed in HPI, a complete review of systems was performed and all other systems are negative. Past Medical History Past Medical History: Coronary Artery Disease (CAD), Cancer, Heart Failure, Eye Disorder, Hearing Disorder / Deafness, Myocardial Infarction (NV), Osteoarthritis (OA), Pneumonia, Sleep Apnea/CPAP/BIPAP Additional Past Medical History / Comment(s): See Dr Napier's H&P. Recent hospitalization for V-Tach. Arrythmia (past epidodes v-tach), [place] X2. Hx past bladder cancer 3-4 yrs ago. Hiatal hernia. Chronic neck pain. Floaters right eye. "Some hearing loss, right ear." Last Myocardial Infarction Date:: 1994 History of Any Multi-Drug Resistant Organisms: None Reported Past Surgical History: AICD, Back Surgery, Cardiac Ablation, Coronary Bypass/CABG, Orthopedic Surgery, Pacemaker Additional Past Surgical History / Comment(s): Tumor removed from bladder, EP Study, cardioversion/ablation X2 - LAST 06/2017. DB CABG 1985. Tube left ear 2007, left rotator cuff repair, pilonidal surgery, bilateral knee arthroscopy, pain clinic procedure. Past Anesthesia/Blood Transfusion Reactions: Previous Problems w/ Anesthesia Additional Past Anesthesia/Blood Transfusion Reaction / Comment(s): Slow to wake up after. Type of Cardiac Device: AICD Device Placement Date:: 04/2013 - [employer] Past Psychological History: No Psychological Hx Reported Smoking Status: Former smoker - Past Family History Mother Family Medical History: Cancer Additional Family Medical History / Comment(s): Breast cancer. Father Family Medical History: Myocardial Infarction (NV) Additional Family Medical History / Comment(s): at age 46 from NV- ( 4 months before pt was born) Medications and Allergies Home Medications Medication Instructions Recorded Confirmed Type Ascorbic Acid [Vitamin C] 500 mg PO DAILY 03/10/16 07/06/19 History Aspirin 162 mg PO HS 03/10/16 07/06/19 History Atorvastatin [Lipitor] 40 mg PO HS 03/10/16 07/06/19 History Calcium/Magnesium/Zinc 1 tab PO DAILY 03/10/16 07/06/19 History [Jkpuntf-Tadwjruih-Ufhi Tablet] Furosemide [Lasix] 20 mg PO DAILY 03/10/16 07/06/19 History Ubidecarenone [Co Q-10] 100 mg PO DAILY 03/10/16 07/06/19 History Vitamin B Complex 1 cap PO DAILY 08/01/16 07/06/19 History Carvedilol [Coreg] 12.5 mg PO BID #180 tablet 04/24/19 07/06/19 Rx Sotalol [Betapace] 80 mg PO BID #180 tablet 04/24/19 07/06/19 Rx Gabapentin [Neurontin] 400 mg PO DAILY 07/06/19 07/06/19 History Sacubitril/Valsartan [Entresto 24 1 tab PO BID 07/06/19 07/06/19 History mg-26 mg Tablet] Allergies Allergy/AdvReac Type Severity Reaction Status Date / Time No Known Allergies Allergy Verified 07/06/19 16:50 Physical Exam Vitals: Vital Signs Temp Pulse Resp BP Pulse Ox 07/06/19 13:46 98.1 F 60 20 133/78 99 Intake and Output 07/06/19 07/06/19 07/06/19 06:59 14:59 22:59 Other: Weight 94.347 kg General: [non toxic], [no distress], [appears at stated age] Derm: [warm], [dry] Head: [atraumatic], [normocephalic], [symmetric] Eyes: [EOMI], [no lid lag], [anicteric sclera] Mouth: [no lip lesion], [mucus membranes moist] Cardiovascular: [S1S2 reg], [no murmur], [positive DP pulse bilateral], [sternal scar] Lungs: [CTA bilateral], [no rhonchi, no rales] , [no accessory muscle use] Abdominal: [soft], [ nontender to palpation], [no guarding], [no appreciable organomegaly] Ext: [no gross muscle atrophy], [no edema], [no contractures] Neuro: [ CN II-XI grossly intact], [no focal neuro deficits] Psych: [Alert], [oriented], [appropriate affect] Results CBC & Chem 7: 07/06/19 15:00 07/06/19 15:00 Labs: Abnormal Lab Results - Last 24 Hours (Table) 07/06/19 07/06/19 Range/Units 15:00 15:00 RBC 4.28 L (4.30-5.90) m/uL Glucose 124 H (74-99) mg/dL Assessment and Plan Assessment: Assessment and plan Epigastric pain rule out acute coronary syndrome CAD with history of CABG and stent placement Systolic heart failure with EF 25% History of ventricular tachycardia post ablation with defibrillator Troponin 0.018, EKG showing ventricular paced rhythm. Has extensive family history with father that at 46 of NV and an uncle that at age 31 of NV. Underwent CABG in 1985, NV in 1989 and 1994. Plans: Trend troponin/EKG to rule out ACS. Telemetry monitoring. Follow cardiology consultation. Plans: Continue aspirin and Lipitor. Continue beta kike. Echocardiogram shows EF 20-25% with hypokinetic wall motion. Plans: Continue Lasix. Continue beta kike. Continue Entresto. Plans: Telemetry monitoring. Continue beta kike. DVT prophylaxis: [SCD] Discussed with: [Patient] Anticipated discharge: [1-2 days] Anticipated discharge place: [Home] A total of [35] minutes was spent on the care of this complex patient more than 50% of the time was spent in counseling and care coordination. Patient names his Bisi decision-maker indicates that he can't make decisions for himself. Patient would like to remain full code at this time.
[2019-07-06 18:04] VITALS: RESP 18
[2019-07-06] MEDS: SACUBITRIL/VALSARTAN 24 MG-26 MG TABLET PO SCH (20:22)
[2019-07-06] MEDS: CARVEDILOL 12.5 MG TAB PO SCH (20:22)
[2019-07-06] MEDS: SOTALOL 80 MG TAB PO SCH (20:22)
[2019-07-06] MEDS ORDERED: HYDROcodone/APAP 5-325MG 1 EACH TAB PO STA (20:35)
[2019-07-06] MEDS ORDERED: GABAPENTIN 100 MG CAP PO STA (20:35)
[2019-07-06] MEDS ORDERED: ATORVASTATIN 40 MG TAB PO SCH (21:00)
--- NOTE | 2019-07-06 22:13 | US ---
EXAMINATION TYPE: US gallbladder DATE OF EXAM: 07/06/2019 COMPARISON: NONE CLINICAL HISTORY: Abdominal pain. Epigastric pain x 1 day. EXAM MEASUREMENTS: Liver Length: 14.5 cm Gallbladder Wall: 0.27 cm CBD: 0.70 cm Right Kidney: 11.3 x 5.6 x 5.4 cm Limited due to gas. Patient not NPO. Pancreas: Obscured by overlying bowel gas. Liver: Increased echogenicity? Gallbladder: There appears to be hyperechoic indistinct areas in the posterior gallbladder by or att ached to the gallbladder wall vs ?Hyperechoic rough gallbladder wall. Evidence for sonographic Alas's sign: no CBD: Appears to be dilated Right Kidney: Indistinct hypoechoic area seen superior-mid measurin.1 x 2.4 x 2.2 cm. IMPRESSION: Gallbladder is not dilated. There are possible stones at the gallbladder neck. Gallbladde r not well visualized. Common bile duct slightly increased that could relate to some chronic gallblad mathew dysfunction. 2 cm cyst in the upper pole right kidney.
--- NOTE | 2019-07-06 22:14 | US ---
EXAMINATION TYPE: US venous doppler duplex LE LT DATE OF EXAM: 07/06/2019 9:50 PM COMPARISON: US CLINICAL HISTORY: LE edema. Left lower extremity swelling x 1 month. No hx of DVT. Patient takes baby aspirin. SIDE PERFORMED: Left TECHNIQUE: The lower extremity deep venous system is examined utilizing real time linear array sonog subha with graded compression, doppler sonography and color-flow sonography. VESSELS IMAGED: External Iliac Vein (EIV) Common Femoral Vein Deep Femoral Vein Greater Saphenous Vein - Vein stripping done. Femoral Vein Popliteal Vein Small Saphenous Vein * Proximal Calf Veins (* superficial vessels) Left Leg: No evidence of DVT in veins imaged at this time from prox calf veins to EIV. IMPRESSION: No evidence of deep venous thrombosis in the left leg.
[2019-07-07 03:00] LABS: Cholesterol 119 mg/dL (<200); HDL Cholesterol 44 mg/dL (40-60); LDL Cholesterol,Calculated 60 mg/dL (0-99); Triglycerides 75 mg/dL (<150)
[2019-07-07] MEDS ORDERED: FUROSEMIDE 20 MG TAB PO SCH (09:00)
[2019-07-07] MEDS ORDERED: ASPIRIN 325 MG TAB PO SCH (09:00)
[2019-07-07] MEDS ORDERED: GABAPENTIN 400 MG CAP PO SCH (09:00)
[2019-07-07] MEDS ORDERED: ISOSORBIDE MONONITRATE ER 30 MG TAB.ER.24H PO SCH (10:00)
[2019-07-07] MEDS: CARVEDILOL 12.5 MG TAB PO SCH ×2 (10:15→17:31)
[2019-07-07] MEDS: SACUBITRIL/VALSARTAN 24 MG-26 MG TABLET PO SCH (10:15)
[2019-07-07] MEDS: SOTALOL 80 MG TAB PO SCH (10:16)
--- NOTE | 2019-07-07 10:33 | P.CRDCN ---
History of Present Illness History of present illness: HISTORY OF PRESENTING ILLNESS This is a pleasant 74-year-old male past medical history significant for coronary artery disease status post bypass grafting 1985 with LICONA-LAD and SVG-Dx and 2 myocardial infarctions, history of ventricular tachycardia status post 2 ablations, chronic ischemic cardiomyopathy s/p AICD, chronic systolic heart failure, hiatal hernia and form nicotine dependence. He presented with epigastric pain. He follows in the office with Dr. Piedra. We have been asked to see him in consultation for chest pain. He states he has been having an epigastric discomfort since Friday. He states he took Tums with no relief and then tried Pepto with no relief. The pain has been constant with no specific alleviating or aggravating factors. He was given nitro on admission that did not relieve the pain. He denies radiation to the arm, back, neck or jaw. He denies s hortness of breath, dizziness, palpitations, nausea, vomiting or diaphoresis. DIAGNOSTICS EKG reveals atrial-ventricular paced. Chest xray negative for an acute cardiopulmonary process. Ultrasound of the gallbladder reveals gallbladder is not dilated, possible stones with gallbladder neck, gallbladder not well-visualized, common bile duct slightly increased related to chronic dysfunction. Laboratory reviewed, cardiac enzymes negative 3, proBNP 797, LDL 60, creatinine 0.83, potassium 6.5, sodium 140, CBC unremarkable. Current cardiac medications include carvedilol 12.5 mg twice a day, Lasix 20 mg daily, Entresto 24/26 mg twice a day, sotalol 80 mg twice a day, aspirin 162 mg at bedtime and atorvastatin 40 mg daily. Echocardiogram obtained 04/2019 reveals severely impaired LV systolic function with basal inferior, nasal inferoseptal, mid-lateral, mid-posterior and apical lateral wall motion hypokinesia, moderate AR, mild TR and mild pulmonary hypertension with RVSP of 42 mmHg. Most recent heart catheterization performed in 2001 revealed a totally occluded LAD, mid circumflex and proximal RCA, SVG to diagonal occluded, LICONA to LAD patent, rich collaterals to the RCA and circumflex. REVIEW OF SYSTEMS At the time of my exam: CONSTITUTIONAL: Denies fever or chills. CARDIOVASCULAR: Denies chest pain, shortness of breath, orthopnea, PND or palpitations. RESPIRATORY: Denies cough. GASTROINTESTINAL: Complains of epigastric pain. Denies abdominal pain, diarrhea, constipation, nausea or vomiting. MUSCULOSKELETAL: Denies myalgias. NEUROLOGIC: Denies numbness, tingling or weakness. ENDOCRINE: Denies fatigue, weight change, polydipsia or polyurina. GENITOURINARY: Denies burning, hematuria or urgency with micturation. HEMATOLOGIC: Denies history of anemia or bleeding. PHYSICAL EXAMINATION Blood pressure 117/70 heart rate 60 afebrile and maintaining oxygen saturaiton on room air. CONSTITUTIONAL: No apparent distress. HEENT: Head is normocephalic. Pupils are equal, round. Sclerae anicteric. Mucous membranes of the mouth are moist. No JVD. No carotid bruit. CHEST EXAMINATION: Lungs are clear to auscultation. No chest wall tenderness is noted on palpation or with deep breathing. HEART EXAMINATION: Regular rate and rhythm. S1, S2 heard. No murmurs, gallops or rub. ABDOMEN: Soft, nontender. Positive bowel sounds. EXTREMITIES: 2+ peripheral pulses, no lower extremity edema and no calf tenderness. NEUROLOGIC EXAMINATION: Patient is awake, alert and oriented x3. ASSESSMENT Chest pain, more epigastric. Atypical for angina, an acute coronary event has been ruled out. Ventricular tachycardia s/p ablation Coronary artery disease s/p bypass grafting Hypertension Ischemic cardiomyopathy s/p AICD Chronic systolic heart failure, currently euvolemic Dyslipidemia PLAN An acute coronary event has been ruled out. Symptoms are atypical and ongoing with no change in troponin. Unlikely to be cardiac etiology. We will maximize his medical regimen with imdure 30 mg daily. Ongoing medical management and evaluation by surgery. No further cardiac testing at this time. Follow up in the office with Dr. Piedra upon discharge. Thank you kindly for this consultation. Nurse Practitioner note has been reviewed, I agree with a documented findings and plan of care. Patient was seen and examined. Past Medical History Past Medical History: Coronary Artery Disease (CAD), Cancer, Heart Failure, Eye Disorder, Hearing Disorder / Deafness, Myocardial Infarction ([place]), Osteoarthritis (OA), Pneumonia, Sleep Apnea/CPAP/BIPAP Additional Past Medical History / Comment(s): See Dr Napier's H&P. Recent hospitalization for V-Tach. Arrythmia (past epidodes v-tach), [place] X2. Hx past bladder cancer 3-4 yrs ago. Hiatal hernia. Chronic neck pain. Floaters right eye. "Some hearing loss, right ear." Last Myocardial Infarction Date:: 1994 History of Any Multi-Drug Resistant Organisms: None Reported Past Surgical History: AICD, Back Surgery, Cardiac Ablation, Coronary Bypass/CABG, Orthopedic Surgery, Pacemaker Additional Past Surgical History / Comment(s): Tumor removed from bladder, EP Study, cardioversion/ablation X2 - LAST 06/2017. DB CABG 1985. Tube left ear 2007, left rotator cuff repair, pilonidal surgery, bilateral knee arthroscopy, pain clinic procedure. Past Anesthesia/Blood Transfusion Reactions: Previous Problems w/ Anesthesia Additional Past Anesthesia/Blood Transfusion Reaction / Comment(s): Slow to wake up after. Type of Cardiac Device: AICD Device Placement Date:: 04/2013 - [employer] Past Psychological History: No Psychological Hx Reported Smoking Status: Former smoker Past Alcohol Use History: Occasional Additional Past Alcohol Use History / Comment(s): STARTED SMOKING AT AGE 17, SMOKED PIPE, QUIT 1985, smoked for 20 years. Past Drug Use History: None Reported - Past Family History Mother Family Medical History: Cancer Additional Family Medical History / Comment(s): Breast cancer. Father Family Medical History: Myocardial Infarction ([place]) Additional Family Medical History / Comment(s): at age 46 from [place]- ( 4 months before pt was born) Medications and Allergies Home Medications Medication Instructions Recorded Confirmed Type Ascorbic Acid [Vitamin C] 500 mg PO DAILY 03/10/16 07/06/19 History Aspirin 162 mg PO HS 03/10/16 07/06/19 History Atorvastatin [Lipitor] 40 mg PO HS 03/10/16 07/06/19 History Calcium/Magnesium/Zinc 1 tab PO DAILY 03/10/16 07/06/19 History [Fbiyfdg-Yltewwjfc-Tmzs Tablet] Furosemide [Lasix] 20 mg PO DAILY 03/10/16 07/06/19 History Ubidecarenone [Co Q-10] 100 mg PO DAILY 03/10/16 07/06/19 History Vitamin B Complex 1 cap PO DAILY 08/01/16 07/06/19 History Carvedilol [Coreg] 12.5 mg PO BID #180 tablet 04/24/19 07/06/19 Rx Sotalol [Betapace] 80 mg PO BID #180 tablet 04/24/19 07/06/19 Rx Gabapentin [Neurontin] 400 mg PO DAILY 07/06/19 07/06/19 History Sacubitril/Valsartan [Entresto 24 1 tab PO BID 07/06/19 07/06/19 History mg-26 mg Tablet] Allergies Allergy/AdvReac Type Severity Reaction Status Date / Time No Known Allergies Allergy Verified 07/06/19 16:50 Physical Exam Vitals: Vital Signs Temp Pulse Pulse Resp BP BP Pulse Ox 07/07/19 07:10 97.9 F 60 18 117/70 98 07/07/19 03:50 97.7 F 60 18 93/61 98 07/07/19 03:06 18 07/06/19 23:55 97.6 F 56 L 18 101/54 98 07/06/19 23:22 18 07/06/19 20:00 18 07/06/19 18:45 98 07/06/19 18:02 97.6 F 60 18 128/71 99 07/06/19 17:39 86 16 139/71 99 07/06/19 13:46 98.1 F 60 20 133/78 99 Intake and Output 07/06/19 07/07/19 07/07/19 22:59 06:59 14:59 Other: Voiding Method Toilet Toilet # Voids 1 1 Weight 94.347 kg Results 07/06/19 15:00 07/06/19 15:00 Cardiac Enzymes 07/06/19 07/06/19 07/06/19 Range/Units 15:00 15:00 22:24 AST 33 (17-59) U/L Troponin I 0.018 0.014 (0.000-0.034) ng/mL 07/07/19 Range/Units 02:32 AST (17-59) U/L Troponin I <0.012 (0.000-0.034) ng/mL Coagulation 07/06/19 Range/Units 15:00 PT 10.0 (9.0-12.0) sec APTT 22.8 (22.0-30.0) sec Lipids 07/07/19 Range/Units 02:32 Triglycerides 75 (<150) mg/dL Cholesterol 119 (<200) mg/dL HDL Cholesterol 44 (40-60) mg/dL CBC 07/06/19 Range/Units 15:00 WBC 7.2 (3.8-10.6) k/uL RBC 4.28 L (4.30-5.90) m/uL Hgb 14.0 (13.0-17.5) gm/dL Hct 40.2 (39.0-53.0) % Plt Count 235 (150-450) k/uL Comprehensive Metabolic Panel 07/06/19 Range/Units 15:00 Sodium 140 (137-145) mmol/L Potassium 4.5 (3.5-5.1) mmol/L Chloride 106 (98-107) mmol/L Carbon Dioxide 25 (22-30) mmol/L BUN 20 (9-20) mg/dL Creatinine 0.83 (0.66-1.25) mg/dL Glucose 124 H (74-99) mg/dL Calcium 9.7 (8.4-10.2) mg/dL AST 33 (17-59) U/L ALT 27 (21-72) U/L Alkaline Phosphatase 40 (38-126) U/L Total Protein 7.1 (6.3-8.2) g/dL Albumin 4.2 (3.5-5.0) g/dL Current Medications Generic Name Dose Route Start Last Admin Trade Name Freq PRN Reason Stop Dose Admin Aspirin 162 mg 07/07/19 21:00 Aspirin PO HS LETTY Atorvastatin Calcium 40 mg 07/06/19 21:00 07/06/19 20:22 Lipitor PO 40 mg HS LETTY Administration Carvedilol 12.5 mg 07/06/19 19:00 07/06/19 20:22 Coreg PO 12.5 mg BID-W/MEALS LETTY Administration Furosemide 20 mg 07/07/19 09:00 Lasix PO DAILY [facility] Gabapentin 400 mg 07/07/19 09:00 Neurontin PO DAILY [facility] Nitroglycerin 0.4 mg 07/06/19 16:43 Nitrostat SUBLINGUAL Q5M PRN Chest Pain Sacubitril/Valsartan 1 each 07/06/19 21:00 07/06/19 20:22 Entresto 24 Mg-26 Mg Tablet PO 1 each BID [facility] Administration Sotalol HCl 80 mg 07/06/19 21:00 07/06/19 20:22 Betapace PO 80 mg BID LETTY Administration Intake and Output 07/06/19 07/07/19 07/07/19 22:59 06:59 14:59 Other: Voiding Method Toilet Toilet # Voids 1 1 Weight 94.347 kg 07/06/19 15:00 07/06/19 15:00
--- NOTE | 2019-07-07 13:35 | NM ---
EXAMINATION TYPE: NM hepatobiliary w CCK DATE OF EXAM: 07/07/2019 COMPARISON: Gallbladder ultrasound from yesterday HISTORY: Epigastric pain and gallbladder dysfunction per order. TECHNIQUE: After the intravenous administration of 5.6 mCi Tc 99m Mebrofenin hepatobiliary scintigrap hy is performed. Immediate images post injection. FINDINGS: There is satisfactory initial accumulation of tracer by the liver. The gallbladder is visualized wit hin 25 minutes. The small bowel activity is not well seen even after 60 minutes. At one hour CCK wa s administered, patient was injected with 1.9 mcg of Kinevac, and gallbladder ejection fraction is ca lculated at 8 %, diminished from the normal range. Therefore there is no scintigraphic evidence of c ystic or common bile duct obstruction to suggest acute cholecystitis. Overall diminished ejection fra ction is consistent with chronic cholecystitis and/or gallbladder dyskinesia. IMPRESSION: Ejection fraction is 8%, diminished from the normal range, scintigraphic findings are con sistent with underlying gallbladder dyskinesia.
--- NOTE | 2019-07-07 17:38 | P.PN ---
Subjective Progress Note Date: 07/07/19 Patient examined at bedside, reports intermittent bouts of epigastric pain, troponins have trended down .018 .014 .012 atrial ventricular paced rhythm. No acute events overnight Objective - Vital Signs Vital signs: Vital Signs Temp 97.4 F L 07/07/19 16:00 Pulse 60 07/07/19 16:00 Resp 18 07/07/19 16:00 BP 104/63 07/07/19 16:00 Pulse Ox 99 07/07/19 16:00 Intake & Output 07/06/19 07/07/19 07/07/19 18:59 06:59 18:59 Weight 94.347 kg Other: Voiding Method Toilet Toilet Toilet # Voids 1 1 1 - Exam Constitutional: No acute distress, conversant, pleasant Eyes: Anicteric sclerae, moist conjunctiva, no lid-lag, PERRLA ENMT: NC/AT,Oropharynx clear, no erythema, exudates Neck:Supple, FROM, no masses, or JVD, No carotid bruits; No thyromegaly Lungs: Clear to auscultation, Clear to percussion, Normal respiratory effort, no accessory muscle use Cardiovascular: Heart regular in rate and rhythm, No murmurs, gallops, or rubs no peripheral edema Abdominal: Soft Nontender, nom distended, no guarding, no rebound or rigidity, Normoactive bowel sounds No hepatomegaly, No splenomegaly, No palpable mass No abdominal wall hernia noted Skin: Normal temperature, tone, texture, turgor, No induration No subcutaneous nodules, No rash, lesions, No ulcers Extremities:No digital cyanosis No clubbing, Pedal pulses intact and symmetrical Radial pulses intact and symmetrical Normal gait and station, No calf tenderness Psychiatric: Alert and oriented to person, place and time, Appropriate affect Intact judgement Neuro: Muscles Strength 5/5 in all 4 extremities, Sensation to light touch grossly present throughout, Cranial nerves II-XII grossly intact. No focal sensory deficits - Labs CBC & Chem 7: 07/06/19 15:00 07/06/19 15:00 Assessment and Plan Assessment: Atypical chest pain * ACS has been ruled out patient seen by cardiology no other testing or evaluation s troponins have been negative * Coronary artery disease s/p bypass grafting * Echocardiogram04/29 revealed severely impaired LV systolic function with basal inferior, nasal inferoseptal, mid-lateral, mid-posterior and apical lateral wall motion hypokinesia, moderate AR, mild TR and mild pulmonary hypertension Epigastric pain * Likely secondary to the gallbladder dysfunction Gallbladder dysfunction * Right upper quadrant ultrasound indicating slightly increased CBD that suggest gallbladder dysfunction * HIDA scan ordered also suggesting gallbladder dysfunction * Gen. surgery consulted to evaluate for lap cholecystectomy Essential hypertension * Blood pressure stable and controlled Chronic ischemic cardiomyopathy * Continue Coreg aspirin and Entresto Hyperlipidemia * Continue statin therapy Disposition * The patient already cleared by cardiology waiting general surgery evaluation if cleared we'll discharge patient home today
[2019-07-07 18:45] VITALS: BP 101/60; PULSE 59; TEMP 97.6
--- NOTE | 2019-07-07 19:54 | P.GSCN ---
History of Present Illness Consult date: 07/07/19 Reason for Consult: Epigastric abdominal pain History of present illness: 74-year-old male comes in the hospital complaining of pain that began 2 days ago in the midepigastric region. Pain persisted through the night Friday into yesterday morning and came to the hospital yesterday with those complaints. Patient states he tried oral antiacids with no relief. 30 years ago had similar pain and was found to have an acute HI. Patient has had multiple heart attacks requiring CABG and multiple cardiac catheterizations. Patient is mostly co ncerned about the possibility of a cardiac source of his pain. On arrival his white blood cell count was normal. His liver enzymes are likewise normal. An ultrasound was done which was of somewhat poor quality. Possible gallstones and possible gallbladder wall thickening was described. Sonographic Alas sign negative. Today the patient had a HIDA scan which showed an 8% ejection fraction but otherwise normal. Patient says his pain on arrival was and 8 and is down to 8 to at this time. He would like to go home tonight. He has been cleared by cardiology. No symptoms similar to this recently. Tolerating regular diet. Review of Systems The patient denies any acute changes in vision or hearing, no dysphagia or odynophagia, no shortness of breath, no dysuria or hematuria, no headache, no runny nose, no rectal bleeding or melena, no unexplained weight loss Past Medical History Past Medical History: Coronary Artery Disease (CAD), Cancer, Heart Failure, Eye Disorder, Hearing Disorder / Deafness, Myocardial Infarction ([place]), Osteoarthritis (OA), Pneumonia, Sleep Apnea/CPAP/BIPAP Additional Past Medical History / Comment(s): See Dr Napier's H&P. Recent hospitalization for V-Tach. Arrythmia (past epidodes v-tach), [place] X2. Hx past bladder cancer 3-4 yrs ago. Hiatal hernia. Chronic neck pain. Floaters right eye. "Some hearing loss, right ear." Last Myocardial Infarction Date:: 1994 History of Any Multi-Drug Resistant Organisms: None Reported Past Surgical History: AICD, Back Surgery, Cardiac Ablation, Coronary Bypass/CABG, Orthopedic Surgery, Pacemaker Additional Past Surgical History / Comment(s): Tumor removed from bladder, EP Study, cardioversion/ablation X2 - LAST 06/2017. DB CABG 1985. Tube left ear 2007, left rotator cuff repair, pilonidal surgery, bilateral knee arthroscopy, pain clinic procedure. Past Anesthesia/Blood Transfusion Reactions: Previous Problems w/ Anesthesia Additional Past Anesthesia/Blood Transfusion Reaction / Comm: Slow to wake up after. Type of Cardiac Device: AICD Device Placement Date:: 04/2013 - [employer] Past Psychological History: No Psychological Hx Reported Smoking Status: Former smoker Past Alcohol Use History: Occasional Additional Past Alcohol Use History / Comment(s): STARTED SMOKING AT AGE 17, SMOKED PIPE, QUIT 1985, smoked for 20 years. Past Drug Use History: None Reported - Past Family History Mother Family Medical History: Cancer Additional Family Medical History / Comment(s): Breast cancer. Father Family Medical History: Myocardial Infarction ([place]) Additional Family Medical History / Comment(s): at age 46 from [place]- ( 4 months before pt was born) Medications and Allergies Home Medications Medication Instructions Recorded Confirmed Type Ascorbic Acid [Vitamin C] 500 mg PO DAILY 03/10/16 07/06/19 History Aspirin 162 mg PO HS 03/10/16 07/06/19 History Atorvastatin [Lipitor] 40 mg PO HS 03/10/16 07/06/19 History Calcium/Magnesium/Zinc 1 tab PO DAILY 03/10/16 07/06/19 History [Abdsmro-Bghbcekib-Zqkv Tablet] Furosemide [Lasix] 20 mg PO DAILY 03/10/16 07/06/19 History Ubidecarenone [Co Q-10] 100 mg PO DAILY 03/10/16 07/06/19 History Vitamin B Complex 1 cap PO DAILY 08/01/16 07/06/19 History Carvedilol [Coreg] 12.5 mg PO BID #180 tablet 04/24/19 07/06/19 Rx Sotalol [Betapace] 80 mg PO BID #180 tablet 04/24/19 07/06/19 Rx Gabapentin [Neurontin] 400 mg PO DAILY 07/06/19 07/06/19 History Sacubitril/Valsartan [Entresto 24 1 tab PO BID 07/06/19 07/06/19 History mg-26 mg Tablet] Allergies Allergy/AdvReac Type Severity Reaction Status Date / Time No Known Allergies Allergy Verified 07/06/19 16:50 Surgical - Exam Vital Signs Temp Pulse Resp BP Pulse Ox 98.1 F 60 20 133/78 99 07/06/19 13:46 07/06/19 13:46 07/06/19 13:46 07/06/19 13:46 07/06/19 13:46 Physical exam: General: Well-developed, well-nourished HEENT: Normocephalic, sclerae nonicteric Abdomen: Nontender, nondistended Extremities: No edema Neuro: Alert and oriented Results - Labs 07/06/19 15:00 07/06/19 15:00 Diabetes panel 07/07/19 Range/Units 02:32 Triglycerides 75 (<150) mg/dL HDL Cholesterol 44 (40-60) mg/dL Assessment and Plan (1) Epigastric abdominal pain Narrative/Plan: Patient with epigastric abdominal pain that is improved. He is tolerating his diet. Symptoms may be related to underlying cholecystitis. Patient would like to go home this evening. Patient is high risk surgically from a cardiac standpoint. We'll obtain CT abdomen post discharged to better evaluate the gallbladder and the epigastric region to evaluate his pain. Patient will follow-up in the office following that. Patient was asked to return to the hospital if his symptoms recur. Current Visit: Yes Status: Acute Code(s): R10.13 - EPIGASTRIC PAIN SNOMED Code(s): 99633503
[2019-07-07] MEDS ORDERED: ASPIRIN 81 MG PO SCH (21:00)
--- NOTE | 2019-07-08 11:32 | P.PN ---
Progress Note - Text Progress Note Date: 07/08/19 I was called by Dr. Radha Pratt and asked to facilitate sending an Rx to the patient's pharmacy for imdur 30 mg daily. I have done this at his direction, I did verify that the patient was taking imdur during his hospital stay
--- NOTE | 2019-07-10 12:14 | P.DS ---
Providers Date of admission: 07/06/19 16:32 Expected date of discharge: 07/08/19 Attending physician: Kalani Mclaughlin DO Consults: 07/06/19 16:43 Consult Physician Urgent Consulting Provider: Leanna Piedra Consult Reason/Comments: unstable angina Do you want consulting provider notified?: Yes 07/07/19 09:12 Consult Physician Routine Consulting Provider: Lucian Sneed Consult Reason/Comments: possible gallstones Do you want consulting provider notified?: Yes Primary care physician: Agustin Jj Hospital Course: Discharge diagnosis Atypical chest pain Epigastric pain Gallbladder dysfunction Essential hypertension Chronic ischemic cardiomyopathy Hyperlipidemia Hospital course Patient is a 74 year-old male past medical history significant for coronary artery disease status post bypass grafting 1985 with LICNOA-LAD and SVG- Dx and 2 myocardial infarctions, history of ventricular tachycardia status post 2 ablations, chronic ischemic cardiomyopathy s/p AICD, chronic systolic heart failure, hiatal hernia and form nicotine dependence that presented with epigastric pain/ atypical chest pain. He was ruled out for acute coronary syndrome as his EKG showed atrial ventricular paced, Negative for any suggestion of acute ischemia, his troponins remained negative. He was seen by cardiology after his previous echocardiogram 04/29 was reviewed that revealed severely impaired LV systolic function with basal inferior, nasal inferoseptal, mid-lateral, mid-posterior and apical lateral wall motion hypokinesia, moderate AR, mild TR and mild pulmonary hypertension with RVSP of 42 mmHg. patient was cleared by cardiology however started on Imdur 30 mg daily. Right upper quadrant ultrasound indicated slightly increased CBD suggestive of gallbladder dysfunction and HIDA scan ordered concurred with these findings suggesting an EF of approximately 8%. Gen. surgery was consulted and the patient was seen by Dr. Sneed recommended outpatient follow-up in his clinic for workup of potential cholecystitis. Patient was discharged home with plans to follow-up with general surgery Dr. Sneed in 2 weeks. Discharge process took approximately 30 minutes. Focused exam Abdomen: Nonacute, soft nontender nondistended Patient Condition at Discharge: Stable Plan - Discharge Summary Discharge Rx Participant: No New Discharge Prescriptions: No Action Atorvastatin [Lipitor] 40 mg PO HS Aspirin 162 mg PO HS Furosemide [Lasix] 20 mg PO DAILY Ubidecarenone [Co Q-10] 100 mg PO DAILY Calcium/Magnesium/Zinc [Baffioo-Daznbuydd-Xgem Tablet] 1 tab PO DAILY Ascorbic Acid [Vitamin C] 500 mg PO DAILY Vitamin B Complex 1 cap PO DAILY Sotalol [Betapace] 80 mg PO BID #180 tablet Carvedilol [Coreg] 12.5 mg PO BID #180 tablet Gabapentin [Neurontin] 400 mg PO DAILY Sacubitril/Valsartan [Entresto 24 mg-26 mg Tablet] 1 tab PO BID Discharge Medication List Ascorbic Acid [Vitamin C] 500 mg PO DAILY 03/10/16 [History] Aspirin 162 mg PO HS 03/10/16 [History] Atorvastatin [Lipitor] 40 mg PO HS 03/10/16 [History] Calcium/Magnesium/Zinc [Ytuiwys-Cajyukbpc-Pwcd Tablet] 1 tab PO DAILY 03/10/16 [History] Furosemide [Lasix] 20 mg PO DAILY 03/10/16 [History] Ubidecarenone [Co Q-10] 100 mg PO DAILY 03/10/16 [History] Vitamin B Complex 1 cap PO DAILY 08/01/16 [History] Carvedilol [Coreg] 12.5 mg PO BID #180 tablet 04/24/19 [Rx] Sotalol [Betapace] 80 mg PO BID #180 tablet 04/24/19 [Rx] Gabapentin [Neurontin] 400 mg PO DAILY 07/06/19 [History] Sacubitril/Valsartan [Entresto 24 mg-26 mg Tablet] 1 tab PO BID 07/06/19 [History] Follow up Appointment(s)/Referral(s): Lucian Sneed MD [Medical Doctor] - 2 Weeks Agustin Jj MD [Primary Care Provider] - 1-2 days Leanna Piedra MD [Family Provider] - 07/26/19 10:45 am Patient Instructions/Handouts: Chest Pain (DC) Care Plan Goals (MU): call dr [facility] on friday to set up ct scan
== END 2019-07-07 20:40 ==
LOC: EC 13:29 → 1SOBS 16:32
PROVIDERS: ADMIT Internal Medicine; ATTEND Internal Medicine
DX: R07.89 Other chest pain (principal); R10.13 Epigastric pain; K82.8 Other specified diseases of gallbladder; I11.0 Hypertensive heart disease with heart failure; I25.110 Atherosclerotic heart disease of native coronary artery with unstable angina pectoris; I25.5 Ischemic cardiomyopathy; I50.22 Chronic systolic (congestive) heart failure; E78.5 Hyperlipidemia, unspecified; F17.200 Nicotine dependence, unspecified, uncomplicated; H91.91 Unspecified hearing loss, right ear; I25.2 Old myocardial infarction; I25.810 Atherosclerosis of coronary artery bypass graft(s) without angina pectoris; I25.82 Chronic total occlusion of coronary artery; I27.20 Pulmonary hypertension, unspecified; K44.9 Diaphragmatic hernia without obstruction or gangrene; Z79.82 Long term (current) use of aspirin; Z79.899 Other long term (current) drug therapy; Z80.3 Family history of malignant neoplasm of breast; Z82.49 Family history of ischemic heart disease and other diseases of the circulatory system; Z85.51 Personal history of malignant neoplasm of bladder; Z86.79 Personal history of other diseases of the circulatory system; Z95.5 Presence of coronary angioplasty implant and graft; Z95.810 Presence of automatic (implantable) cardiac defibrillator; Z99.89 Dependence on other enabling machines and devices
CPT/HCPCS: 93005 ×2; 96361; 96374; 96375; 99285; 36415; 83880; 80061; 80053; 82150; 83690; 84484 ×2; 85025; 85610; 85730; 81003; 71046; 74018; 93971; 76705; 78227; G0378 ×2; A9537; J2270; J2765; J2805; C9113

== ENCOUNTER → 2019-07-06 | Outpatient (CLI) | payer MEDICARE, OTHER ==
--- NOTE | 2019-07-06 13:29 | US ---
EXAMINATION TYPE: US venous doppler duplex LE RT DATE OF EXAM: 07/06/2019 1:21 PM COMPARISON: NONE CLINICAL HISTORY: M79.604 right leg pain. Right popliteal fossa and upper calf pain x 1 month; had ca rdiac ablation 05-10-19 and was on blood thinner post procedure x 1 month. SIDE PERFORMED: Right TECHNIQUE: The lower extremity deep venous system is examined utilizing real time linear array sonog subha with graded compression, doppler sonography and color-flow sonography. VESSELS IMAGED: Common Femoral Vein Deep Femoral Vein Greater Saphenous Vein * Femoral Vein Popliteal Vein Small Saphenous Vein * Proximal Calf Veins (* superficial vessels) Right Leg: Negative for DVT IMPRESSION: No evidence for DVT at this time.
== END | disposition home or self-care (01) ==
LOC: RADUSWWP 12:50
PROVIDERS: ATTEND Internal Medicine
DX: M79.604 Pain in right leg (principal)

== ENCOUNTER → 2019-07-13 | Outpatient (CLI) | payer MEDICARE, OTHER ==
--- NOTE | 2019-07-13 11:25 | CT ---
EXAMINATION TYPE: CT abdomen w con DATE OF EXAM: 07/13/2019 COMPARISON: NONE HISTORY: 74-year-old male Cholecystitis TECHNIQUE: Contiguous axial scanning of the abdomen following administration of 100 ml Isovue 300 IV contrast. Delayed images through the kidneys and coronal/sagittal reconstructions performed. CT DLP: 1008 mGycm Automated exposure control for dose reduction was used. FINDINGS: Right atrial and right ventricular AICD leads are present. Coronary sinus lead is also demonstrated. Left lateral myocardial wall thickening and calcification suggests prior lateral wall infarct. No per icardial effusion. Heart borderline enlarged. Lung bases clear without pleural effusion. Small hiatal hernia. No focal liver lesion or biliary ductal dilatation. Portal venous system is patent. Layering gravel within the nondistended gallbladder. Adrenal glands, kidneys, spleen, and pancreas show no gross adenopathy. No dilated small bowel, free fluid, or free air. No mesenteric or retroperitoneal lymphadenopathy. Mo derate stool burden. Normal appendix partially visualized. No pericolonic inflammatory change of the visualized colon. Mild to moderate atherosclerotic calcifications infrarenal abdominal aorta and common iliac arteries. Lower abdomen and pelvis is not imaged. Bones: Moderate to advanced degenerative disc disease L3-S1 levels and mild within the lower thoracic spine. There is some interspinous fusion within the mid to lower lumbar spine with hypertrophic face t arthropathy. IMPRESSION: 1. THINNED AND CALCIFIED LATERAL LEFT VENTRICULAR WALL SUGGESTS PRIOR LATERAL WALL INFARCT. 2. LAYERING GRAVEL WITHIN THE NONDISTENDED GALLBLADDER. 3. SMALL HIATAL HERNIA. 4. MODERATE STOOL BURDEN. 5. PELVIS IS NOT IMAGED.
== END | disposition home or self-care (01) ==
LOC: RADCTMAIN 08:33
PROVIDERS: ATTEND Surgery
DX: K82.8 Other specified diseases of gallbladder (principal); K44.9 Diaphragmatic hernia without obstruction or gangrene; K81.1 Chronic cholecystitis
CPT/HCPCS: 74160; Q9967

== ENCOUNTER → 2020-07-10 | Outpatient (CLI) | payer MEDICARE, OTHER ==
[2020-07-10 09:43] VITALS: BP 124/76; PULSE 60; RESP 16; TEMP 98
--- NOTE | 2020-07-10 09:49 | P.PAINPG ---
Subjective Progress Note Date: 07/10/20 This 74 years old male with a history of severe neck pain is very close with cervical spondylosis, with facet arthropathy, in the past we have done radiofrequency thermocoagulation of the cervical medial branch at C2-C3, C3-C4, and C4-5 bilaterally (last 12/2018), he reported that his neck pain improved, is complaining of knee pain, and hand pain, he denies any motor or sensory deficits he denies any numbness or tingling sensation, He was on neurontin 400 mg TID, in our last visit we helped him start the process of weaning off. She reports that he feels like his neck pain has returned. Overall the radio frequency ablations lasted for little over a year and he was very happy with that procedure. In regards to his overall health, this year has been low, located for him. He was recently diagnosed with atrial fibrillation and is currently on eloquent. He has had ablations in the past and he is meeting with his printing roller handler today to discuss the future of his care and if he will need to continue blood thinners. Overall the pain is located mostly on the left side occasional radiation to the left shoulder. There is no numbness and tingling in the fingers. Made worse physical activity. Not currently taking any medication for it. Has weaned himself off the Neurontin. Objective - Exam Physical Examinations : -Constitutiona : Cooperative , not in acute distress . -HEENT : nech : supple , no Lymphadenopathy , normal thyroid size . eyes : no ptosis , no icterus, no photophobia . - neurologic : Cranial nerve II to XII intact , no focal neurological deffecit . -psychatric : alert , oriented X 3 , appropriate affect , intact judgment and insight . -Lymphatic : no Lymphadenopathy . - musculoskeltal : Cervical Spine motor stregnth in the deltoid and biceps, normal right side , normal Left side motor stregnth biceps and the wrist extensors normal right side ,normal left side . motor stregnth in the triceps muscle . normal Right side , normal Left side Lumber spine moter stegnth lower extremities ,thigh and legs 5/5 Right side , 5/5 Left side Assessment and Plan Plan: Assessment and plan= chronic neck pain secondary to cervical spondylosis, with facet arthropathy, neck pain improved after radiofrequency ablation of the medial branch cervical area Patient has had bilateral RFA of C2-C3, C3-C4, C4-C5 in the past. Currently his pain is only located on the left side. We will do the RFA at those levels on the left side. We did discuss talking his printing roller handler about him coming off the Eliquis. If the cardiology team plan the doing any further intervention for the atrial fibrillation, we will hold off on her procedure until that is taking care of. Time with Patient: Less than 30 PQRS Measure Charge Sheet Measure #130: Documentation of Current Meds in Medical Chart: Patient's medications documented in chart Measure #226: Tobacco Use: Screen & Cessation Intervention: Pt not a tobacco user Measure #111: Pneumonia Vaccination: Pneumococcal vaccine administered or previously received Measure #47: Advance Care Plan: Advance care planning discussed & documented, pt chose/unable to give Measure #412: Opioid Treatment Agreement: No documentation of signed opioid treatment agreement Measure #408: Opioid Therapy Follow-up Evaluation: Patient had NO f/u eval minimum every 3 months during opioid therapy Measure #317: Preventitive Care & Scrn High Bld Press & F/U: Normal blood pressure, f/u not required Measure #128: Body Mass Index (BMI) Screening & Follow-up: BMI documented ABOVE normal parameters - f/u documented Measure #131: Pain Assessment & Follow-up: Pain positive & plan documented, Follow-up PRN Measure #431: Unhealthy Alcohol Use Preventative Care & Scrn: Patient not identified as an unhealthy alcohol user PQRS Narrative: Smoking Status Former smoker Blood Pressure 129/78 Pain Intensity [Generalized] 6 Scale Used Numeric (1 - 10) Hx Alcohol Use (MH) No Controlled Substance Measures - Controlled Substance Measures Is patient prescribed a controlled substance at discharge?: Yes When asked, does pt state using other controlled substances?: No If prescribed controlled substance>3 days was MAPS reviewed?: Yes If Rx opioid, was Start Talking consent form obtained?: Yes If opioid is for acute pain is fill amount 7 days or less?: No Was information provided regarding opioid addiction?: Yes PQRS Measure Charge Sheet PQRS Narrative: Smoking Status Former smoker Hx Alcohol Use (MH) No Home Medications: Ambulatory Orders Ascorbic Acid [Vitamin C] 500 mg PO DAILY 03/10/16 Aspirin 162 mg PO HS 03/10/16 Atorvastatin [Lipitor] 40 mg PO HS 03/10/16 Calcium/Magnesium/Zinc [Wpwpgme-Pwypdmnuj-Rnui Tablet] 1 tab PO DAILY 03/10/16 Furosemide [Lasix] 20 mg PO DAILY 03/10/16 Ubidecarenone [Co Q-10] 100 mg PO DAILY 03/10/16 Vitamin B Complex 1 cap PO DAILY 08/01/16 Carvedilol [Coreg] 12.5 mg PO BID #180 tablet 04/24/19 Sotalol [Betapace] 80 mg PO BID #180 tablet 04/24/19 Sacubitril/Valsartan [Entresto 24 mg-26 mg Tablet] 1 tab PO BID 07/06/19 Apixaban [Eliquis] 5 mg PO DAILY 07/10/20 Controlled Substance Measures - Controlled Substance Measures Is patient prescribed a controlled substance at discharge?: No
== END | disposition home or self-care (01) ==
LOC: PNWHC3 09:14
PROVIDERS: ATTEND Anesthesiology
DX: M47.812 Spondylosis without myelopathy or radiculopathy, cervical region (principal); G89.29 Other chronic pain; Z87.891 Personal history of nicotine dependence; Z79.891 Long term (current) use of opiate analgesic; Z79.899 Other long term (current) drug therapy; Z79.82 Long term (current) use of aspirin
CPT/HCPCS: 99211

== ENCOUNTER 2020-09-01 07:50 | Day surgery (SDC) | payer MEDICARE, OTHER ==
[2020-08-30 13:33] VITALS: BMI 30.4
[2020-09-01] MEDS: LACTATED RINGERS 1,000 ML IV SCH ×2 (08:33→08:42)
[2020-09-01 08:37] VITALS: PULSE 60; RESP 16; TEMP 98.1
[2020-09-01] MEDS ORDERED: fentaNYL (PF) 50 MCG/ML 2 ML AMP ONE (09:14)
[2020-09-01] MEDS ORDERED: MIDAZOLAM 2 MG/2 ML VIAL ONE (09:14)
[2020-09-01] MEDS ORDERED: methylPREDNISolone ACETATE 40 MG/ML 1 ML VIAL ONE (09:15)
[2020-09-01] MEDS ORDERED: ROPIVACAINE 5MG/ML 20ML VIAL ONE (09:15)
--- NOTE | 2020-09-01 09:37 | P.PCN ---
Date of Procedure: 09/01/20 Procedure(s) Performed: PREOPERATIVE DIAGNOSIS: Cervical spondylosis without myelopathy and facet arthropathy. POSTOPERATIVE DIAGNOSIS: Cervical spondylosis without myelopathy and facet arthropathy. PROCEDURES: Radiofrequency thermocoagulation, C2, C3, V4vlwvih branch, with fluoroscopic guidance, left side. (Denervate the facet joint at the left side C2-3 , C3-4 levels ) ANESTHESIA: Monitored anesthesia care by anesthesia department EBL: Minimal PROCEDURE INDICATION: The patient with neck pain secondary to cervical arthropathy who had more than 50% relief of her pain with previous diagnostic cervical medial branch block. No use of blood thinners. Patient has had radiofrequency ablation of the medial branch cervical area, and had excellent pain relief which is lasted more than 6 months,he presents today for repeate cervical RFA, patient's had pacer/AICD, whose antitachycardia function was deactivated with a magnet prior to beginning procedure. PROCEDURE DESCRIPTION / TECHNIQUE: The patient was seen and identified in the preoperative area. Risks, benefits, complications, and alternatives were discussed with the patient (with risks including but not limited to bleeding, infection, nerve damage, incomplete pain relief, and allergic reactions to medications), the patient agreed to proceed with the procedure and signed the informed consent after all questions were answered. IV was started. Vital signs remained stable throughout the procedure. Patient was taken to the OR and time out was completed. The patient was placed in the prone position on the procedure table. A pillow was placed under the patients chest to increase the cervical interlaminar space. The cervical area was prepped and draped in the usual sterile fashion. Critical pause was taken. Vital signs were closely monitored during the procedure. Conscious sedation was used during the procedure to decrease patients anxiety. Using cross-table lateral fluoroscopy, the centroid of the trapezoid of left C2, C3, C4, were identified, marked, and localized with 1% lidocaine. Subsequently, a 20 gauge 100-mm radiofrequency cannula with a 5-mm active tip was advanced guided by fluoroscopy to the centroid of the trapezoid of left C2, C3, and C4. Needle tip position was confirmed at the centroid of the trapezoids of all three sites with anteroposterior fluoroscopy. Each site then underwent sensory testing at 50 Hz and 0 to 1 volt and motor testing at 2 Hz and 0 to 3 volt with local stimulation, but no radicular symptoms down the arm. Thereafter all three sites underwent radiofrequency thermocoagulation at 80 degrees celsius for 90 seconds after injecting 0.5 ml of PF lidocaine 1%. After thermocoagulation, 1 ml of the block solution containing Depo-Medrol 40 mg and 2 mL of preservative-free normal saline was injected at all three levels after negative aspiration of CSF and blood and with no paresthesias. Cannulas were retracted while injecting lidocaine 1% until the needle is out. Skin was cleansed and bandages were applied. note = magnet applied over the location of the AICD, before we do any testing and before with the radiofrequency, and a magnet removed after the radiofrequency was done COMPLICATIONS: No acute complications. DISPOSITION / PLANS: The patient was placed in a supine position and transferred to the recovery area in a stable condition for observation and was discharged from the recovery room after meeting discharge criteria. Home discharge instructions given to the patient by the staff. The patient was reexamined prior to discharge and there were no issues. The patient will schedule a right cervical RFA next.
[2020-09-01] MEDS ORDERED: IV FLUID CONTINUATION 700 ML IV ONE (09:41)
--- NOTE | 2020-09-01 09:46 | FL ---
EXAMINATION TYPE: FL guided pain mgmt statistic DATE OF EXAM: 09/01/2020 HISTORY: Fluoroscopy time 7 seconds of fluoroscopy provided. IMPRESSION: 1. Fluoroscopy time.
[2020-09-01 10:17] VITALS: BP 120/65
== END 2020-09-01 10:21 | disposition home or self-care (01) ==
LOC: ORPAIN 07:50
PROVIDERS: ATTEND Specialist
DX: M47.812 Spondylosis without myelopathy or radiculopathy, cervical region (principal); I48.91 Unspecified atrial fibrillation; I50.9 Heart failure, unspecified; I25.10 Atherosclerotic heart disease of native coronary artery without angina pectoris; I25.2 Old myocardial infarction; E78.5 Hyperlipidemia, unspecified; Z95.1 Presence of aortocoronary bypass graft; Z95.810 Presence of automatic (implantable) cardiac defibrillator; G47.33 Obstructive sleep apnea (adult) (pediatric); Z87.891 Personal history of nicotine dependence; Z79.01 Long term (current) use of anticoagulants; Z79.02 Long term (current) use of antithrombotics/antiplatelets; Z79.899 Other long term (current) drug therapy; Z79.82 Long term (current) use of aspirin
CPT/HCPCS: 64633; 64634; J2250; J1030; J3010; J2795

== ENCOUNTER → 2021-01-20 | Outpatient (CLI) | payer MEDICARE ==
[2021-01-20 16:26] LABS: HCT 40.8 % (39.6-50.0); HGB 13.8 g/dL (13.0-17.0); MCH 32.5 pg (27.0-32.0); MCHC 33.8 g/dL (32.0-37.0); Mean Platelet Volume 10.7 fL (9.5-12.2); Platelet Count 200 X 10*3/uL (140-440); RBC 4.25 X 10*6/uL (4.40-5.60); RDW 13.1 % (11.5-14.5); WBC 5.51 X 10*3/uL (4.50-10.00)
[2021-01-20 16:36] LABS: African American GFR (CKD) 84.4 (60.0-200.0); Albumin 4.3 g/dL (3.80-4.90); Albumin/Globulin Ratio 1.79 (1.60-3.17); Anion Gap 4.2 mmol/L (4.00-12.00); Calcium 10.1 mg/dL (8.7-10.3); Carbon Dioxide 28.8 mmol/L (21.6-31.8); Chol/HDL Ratio 2.87; Globulin 2.4 g/dL (1.6-3.3); LDL Cholesterol,Calculated 69.6 mg/dL (0.0-131.0); Non-African American GFR(CKD) 72.8 (60.0-200.0); Potassium 4.5 mmol/L (3.5-5.5); Total Bilirubin 0.9 mg/dL (0.2-1.2); Total Protein 6.7 g/dL (6.2-8.2); VLDL Calculation 16.4 mg/dL (5.00-40.00)
[2021-01-20 18:37] LABS: Hemoglobin A1C 6.2 % (4.0-6.0)
== END | disposition home or self-care (01) ==
LOC: LABWHC1 09:47
PROVIDERS: ATTEND Internal Medicine
DX: R73.01 Impaired fasting glucose (principal); I25.10 Atherosclerotic heart disease of native coronary artery without angina pectoris
CPT/HCPCS: 36415; 80053; 80061; 83036; 85027

== ENCOUNTER → 2021-02-05 | Day surgery (SDC) | payer MEDICARE ==
[2021-02-01 09:14] VITALS: BMI 29.5
[~2021-02-05] MED LIST changes: +IOPAMIDOL-370 50ML BTL INJ ONE; -LACTATED RINGERS 1,000 ML IV SCH; +SODIUM CHLORIDE 0.9% 1,000 ML IV SCH
[2021-02-05 06:59] VITALS: BP 142/67; PULSE 52; RESP 16; TEMP 97.6
--- NOTE | 2021-02-05 08:55 | P.EPPROC ---
- EP Procedure Note Electrophysiology Procedure Note: Procedure Left upper extremity venogram Biventricular ICD interrogation with reprogramming Cinefluoroscopy of the leads 12-lead EKG Indication for the procedure Non-capture in the LV lead Procedure details Cinefluoroscopy of the leads was performed No fractures or breaks in the atrial lead of the RV lead LV lead was in the lateral vein in stable good position Left upper extremity venogram 10 mL of dye was injected in the left arm Patent axillary subclavian innominate veins Biventricular ICD was interrogated Complete non-capture was noted in the LV lead Bi V ICD was programmed LV off and AV delay was extended to a maximum of 300 ms to avoid RV pacing He has been pacing the RV 68% of the time as an outpatient Twelve-lead EKG shows an atrial paced rhythm with a left bundle branch block pattern QRS width 160 ms Review of the previous procedure in February 2013 revealed that the patient had a middle cardiac vein and a lateral vein and an anteroseptal vein only The lateral vein had a superior telemetry, and inferior telemetry and a more proximal tributary The distal superior and inferior tributaries had non-capture between 8-10 warts as well as diaphragmatic stimulation I interrogated or tiny tributaries of the same and finally we were able to find small tributary where there was no diaphragmatic stimulation. The pacing threshold was elevated at 2.5 V at 1.5 ms but reaccepted this since he had no other good LV veins to use Plan Patient has a battery life of about 5 months I would recommend biventricular ICD generator change and epicardial lead placement thoracoscopically The patient has an underlying left bundle branch block pattern with a QRS width of 160 ms Atrial paced rhythm
== END ==
LOC: CATHEP 06:08
PROVIDERS: ATTEND Internal Medicine Clinical Cardiac Electrophysiology
DX: Z45.02 Encounter for adjustment and management of automatic implantable cardiac defibrillator (principal); I25.5 Ischemic cardiomyopathy; I10 Essential (primary) hypertension; I44.7 Left bundle-branch block, unspecified; E78.5 Hyperlipidemia, unspecified; Z20.822 Contact with and (suspected) exposure to COVID-19; I47.2 Ventricular tachycardia; E78.00 Pure hypercholesterolemia, unspecified; Z79.01 Long term (current) use of anticoagulants; Z79.899 Other long term (current) drug therapy
CPT/HCPCS: 93260; 75820; 87635; Q9967; 36005; 93284

== ENCOUNTER → 2021-02-15 | Outpatient (CLI) | payer MEDICARE ==
--- NOTE | 2021-02-15 13:11 | XR ---
EXAMINATION TYPE: XR chest 2V DATE OF EXAM: 02/15/2021 COMPARISON: 07/06/2019 HISTORY: Preoperative evaluation for open heart surgery TECHNIQUE: Frontal and lateral views of the chest are obtained. FINDINGS: Status post median sternotomy. Heart size is mildly enlarged. Left chest wall generator de vice with stable leads. No pleural effusion, focal consolidation or pneumothorax. Degenerative change s of the thoracic spine are mild. IMPRESSION: 1. No acute pulmonary disease. Findings are stable. Status post median sternotomy. Mild cardiomegaly. Left chest wall generator device.
== END | disposition home or self-care (01) ==
LOC: LABPAT 10:59
PROVIDERS: ATTEND Thoracic Surgery (Cardiothoracic Vascular Surgery)
DX: Z01.812 Encounter for preprocedural laboratory examination (principal); Z01.818 Encounter for other preprocedural examination; I51.7 Cardiomegaly; I50.9 Heart failure, unspecified; E86.0 Dehydration; E87.8 Other disorders of electrolyte and fluid balance, not elsewhere classified; R58 Hemorrhage, not elsewhere classified; Q24.9 Congenital malformation of heart, unspecified; Z98.890 Other specified postprocedural states
CPT/HCPCS: 71046

== ENCOUNTER → 2021-02-21 | Outpatient (CLI) | payer MEDICARE ==
[2021-02-21 12:21] LABS: Basophils % (A) 0 %; Eosinophils # (A) 0.2 k/uL (0-0.7); Eosinophils % (A) 3 %; HCT 41.5 % (39.0-53.0); HGB 14.5 gm/dL (13.0-17.5); Lymphocytes # (A) 1.1 k/uL (1.0-4.8); Lymphocytes % (A) 20 %; MCH 32.8 pg (25.0-35.0); MCV 93.9 fL (80.0-100.0); Mean Platelet Volume 7.5; Monocytes # (A) 0.4 k/uL (0-1.0); Monocytes % (A) 8 %; Neutrophils # (A) 3.7 k/uL (1.3-7.7); Neutrophils % (A) 67 %; Platelet Count 200 k/uL (150-450); RBC 4.42 m/uL (4.30-5.90); RDW 12.9 % (11.5-15.5); WBC 5.6 k/uL (3.8-10.6)
[2021-02-21 12:32] LABS: African American GFR (CKD) >90 (>60 ml/min/1.73 sqM); Anion Gap 8 mmol/L; Blood Urea Nitrogen 20 mg/dL (9-20); Carbon Dioxide 28 mmol/L (22-30); Chloride 105 mmol/L (98-107); Glucose 108 mg/dL (74-99); Non-African American GFR(CKD) 85 (>60 ml/min/1.73 sqM); Potassium 4.7 mmol/L (3.5-5.1); Sodium 141 mmol/L (137-145)
[2021-02-21 12:33] LABS: Partial Thromboplastin Time 22.9 sec (22.0-30.0); Prothrombin Time 10.4 sec (9.0-12.0)
== END | disposition home or self-care (01) ==
LOC: LABPAT 11:30
PROVIDERS: ATTEND Thoracic Surgery (Cardiothoracic Vascular Surgery)
DX: Z01.818 Encounter for other preprocedural examination (principal); Z01.812 Encounter for preprocedural laboratory examination; I50.9 Heart failure, unspecified; Q24.9 Congenital malformation of heart, unspecified; E86.0 Dehydration; E87.8 Other disorders of electrolyte and fluid balance, not elsewhere classified; R58 Hemorrhage, not elsewhere classified
CPT/HCPCS: 36415; 80051; 82565; 82947; 84520; 85025; 85610; 85730; 86850; 86900; 86901

== ENCOUNTER 2021-03-01 07:30 | Inpatient (IN) | payer MEDICARE ==
[2021-02-28 10:39] VITALS: BMI 29.5
[2021-03-08] MEDS ORDERED: LIDOCAINE 1% (10MG/ML) FOR IV START INTRADERMA ONE (06:43)
[2021-03-08] MEDS ORDERED: LACTATED RINGERS 1,000 ML IV ONE ×3 (06:45→08:50)
[2021-03-08] MEDS ORDERED: ONDANSETRON 4 MG/2 ML VIAL ONE (06:52)
[2021-03-08] MEDS ORDERED: ONDANSETRON 4 MG/2 ML VIAL IVP ONE (06:55)
[2021-03-08] MEDS ORDERED: DEXAMETHASONE SOD PHOSPHATE 4 MG/ML 1 ML VIAL IVP ONE (06:56)
[2021-03-08] MEDS ORDERED: SUCCINYLCHOLINE CHLORIDE 100 MG/5 ML SYR IV ONE (07:30)
[2021-03-08] MEDS ORDERED: HYDROmorphone (PF) 1 MG/ML ONE (07:30)
[2021-03-08] MEDS ORDERED: PHENYLEPHRINE-0.9% NACL SYG 1,000 MCG/10 ML SYRINGE ONE (07:30)
[2021-03-08] MEDS ORDERED: NEOSTIGMINE 1 MG/ML 10 ML VIAL ONE (07:30)
[2021-03-08] MEDS ORDERED: ePHEDrine SULFATE/0.9% NACL/PF 50 MG/5 ML SYRINGE IV ONE (07:30)
[2021-03-08] MEDS ORDERED: ETOMIDATE 2 MG/ML 10 ML VIAL ONE (07:30)
[2021-03-08] MEDS ORDERED: GLYCOPYRROLATE 0.2 MG/ML 2 ML VIAL ONE (07:30)
[2021-03-08] MEDS ORDERED: MIDAZOLAM 2 MG/2 ML VIAL ONE (07:30)
[2021-03-08] MEDS ORDERED: fentaNYL (PF) 50 MCG/ML 2 ML AMP ONE (07:30)
[2021-03-08] MEDS ORDERED: LIDOCAINE 1% INJ 10MG/ML (20 ML MDV) ONE (07:30)
[2021-03-08] MEDS ORDERED: ROCURONIUM 10 MG/ML (5 ML VIAL) IV ONE (07:30)
[2021-03-08] MEDS ORDERED: WATER FOR INJECTION, STERILE 10 ML VIAL IV ONE (07:30)
[2021-03-08] MEDS ORDERED: SODIUM CHLORIDE 0.9% IRRIGATION ONE (10:00)
[2021-03-08] MEDS ORDERED: CEFAZOLIN IRRIGATION ONE (10:00)
[2021-03-08] MEDS ORDERED: ONDANSETRON 4 MG/2 ML VIAL IVP PRN (10:24)
[2021-03-08] MEDS ORDERED: METOCLOPRAMIDE 5 MG/ML 2 ML VIAL IVP PRN (10:24)
[2021-03-08] MEDS ORDERED: bisacodyL 10 MG SUPP RECTAL PRN (10:24)
[2021-03-08] MEDS ORDERED: IPRATROPIUM-ALBUTEROL 3 ML NEB IH PRN (10:24)
[2021-03-08] MEDS ORDERED: DEXTROSE 5%-0.45% NACL 1,000 ML IV SCH (10:30)
[2021-03-08] MEDS ORDERED: traMADol 50 MG TAB PO PRN (10:34)
--- NOTE | 2021-03-08 10:37 | P.OP ---
Date of Procedure: 03/08/21 Preoperative Diagnosis: Congestive heart failure, left ventricular lead dysfunction, end-of-life biV ICD generator. Postoperative Diagnosis: Same Procedure(s) Performed: Left thoracoscopy with implantation of epicardial bipolar screw in LV lead and replacement of end-of-life biV ICD generator with connection of new LV lead and capping of old LV lead Implants: LV lead is a F.8 Interactive bipolar screw-in lead model #395659 serial #[id number], new pulse generator is a [employer] model [id number] serial number [id number] Anesthesia: GETA Surgeon: Kendell Parrish Estimated Blood Loss (ml): 20 IV fluids (ml): 500 Urine output (ml): 200 Pathology: none sent Condition: stable Disposition: PACU Indications for Procedure: 75-year-old male with cardiomyopathy and left sided chronic systolic heart failure. He had a ICD placed in 2009 which was upgraded to a biV ICD in 2012. At that time they had great deal of difficulty getting an LV lead in an 1 successful was at very high thresholds. Coronary sinus venogram demonstrated only one site and that is the one that had been used. At this time the patient's device is end of life and the LV lead as extremely high thresholds and resistance. LV lead replacement with a epicardial lead was requested by Dr. Mendoza and given the end of life of the pulse generator replacement of this was also warranted. Operative Findings: Patient had previous bypass surgery and there were significant adhesions of the fat and long to the posterior wall of the heart. It was very thick pad of epicardial fat over the lateral aspect of the pericardium. Once this was taken down and the pericardium was opened there was also a very thick fat pad on the ventricular wall. Different areas were attempted before placement of the LV lead initially posterior laterally however we could not generate any R-wave or capture we then moved more lateral and again could not generate any R-wave or capture we finally moved anterior high lateral and were able to obtain good contact with viable myocardium. Final thresholds on the new lead were R waves of 3.2 mV impedance of 300 ohms and amplitude of 3 V at 1.0 ms pulse width. Fi ndings on the chronic RV lead were R waves of 10.4 mV., Impedance of 550 ohms and amplitude of 3.5 V at 0.5 ms pulse width. Settings on the old RA lead were T wave of 2.6 mV impedance of 460 ohms and an amplitude of 1.25 V at 0.5 ms pulse width. Description of Procedure: Patient was anesthetized and intubated with a double-lumen endotracheal tube. Position of the tube was confirmed with fiberoptic bronchoscopy and the tube was secured. Patient was turned in the right lateral decubitus position and the left chest was sterilely prepped and draped. Single lung ventilation ensued. 2 one-inch incisions were made in the left lateral chest wall and video thoracoscope introduced. Adhesions of the lung and epicardial fat to the posterior pericardium were taken down with electrocautery. Phrenic nerve was identified. The pericardium was opened parallel to and anterior to the phrenic nerve. Dissection was carried through the epicardial fat to myocardium. A bipo lar lead was screwed into the ventricular muscle here fairly posterior laterally however we could obtain no airwaves and were unable to capture the ventricle lead was unscrewed and dissection was carried more superiorly and again there was a very thick Fat pad over the epicardium and dissection through this revealed muscle and the lead was screwed in to the ventricular muscle. Again we had no detection of R waves and no capture. Further dissection of the lung and pericardium was performed in order to reach the high anterolateral region. A 1. during dissection the patient went into ventricular tachycardia and had to be cardioverted using the ICD. He had an area of muscle without thick epicardial fat pad was identified and the lead was screwed in for the third time. Now we were able to obtain R-wave measurements and ventricular capture with the findings as noted above. Was decided to accept this placement and the lead was tunneled anteriorly into the third interspace small incision was made over this and lead was coiled in the subcutaneous tissue. A long loop was left in the left chest and the lung was inflated under direct vision and the loop did not appear to have any problems with catching on the lung. 28-K[place]akh chest tube was placed through separate stab incision and positioned posterior apically. The thoracoscope was removed. Incisions were closed with layers of Vicryl suture on the lateral chest wall and skin clips were used to close the skin overlying the lead coiled in the subcutaneous tissue. Patient was then turned supine and the left anterior chest and pacemaker region were sterilely prepped and draped. The ICD incision was reopened and the dissection carried down onto the ICD itself. The ICD was removed from the pocket and the leads were completely freed. The gladis were removed and the new LV lead was tunneled into the pacemaker pocket. The new pulse generator was brought up onto the field. This was a unified [employer] [id number] [employer] pulse generator. The old leads were disconnected from the old pacemaker and connected to the newly pacemaker with the exception of the LV lead the old LV lead was capped and the new LV lead was connected to the new generator. Leads were checked with excellent function. The pulse generator was placed in the pocket and good hemostasis was noted. The pocket was irrigated with antibiotic solution and closed with 2-0 Vicryl in 2 layers and a 4-0 Vicryl subcuticular stitch. The small incision where the lead had been previously coiled was now closed with layers of Vicryl suture. Skin glue and dry sterile dressings were applied. Patient was x-rayed and transferred to recovery area in stable condition.
[2021-03-08] MEDS ORDERED: HYDROmorphone 0.5 MG/0.5 ML SYRINGE IVP ONE ×3 (10:49→13:06)
[2021-03-08 11:24] LABS: Basophils % (A) 0 %; Eosinophils # (A) 0.1 k/uL (0-0.7); Eosinophils % (A) 1 %; HCT 39.1 % (39.0-53.0); HGB 13.5 gm/dL (13.0-17.5); Lymphocytes # (A) 0.5 k/uL (1.0-4.8); Lymphocytes % (A) 6 %; MCHC 34.6 g/dL (31.0-37.0); MCV 95.4 fL (80.0-100.0); Monocytes # (A) 0.2 k/uL (0-1.0); Monocytes % (A) 3 %; Neutrophils # (A) 7.1 k/uL (1.3-7.7); Neutrophils % (A) 90 %; Platelet Count 177 k/uL (150-450); RDW 12.9 % (11.5-15.5); WBC 7.9 k/uL (3.8-10.6)
--- NOTE | 2021-03-08 11:27 | XR ---
EXAMINATION TYPE: XR chest 1V DATE OF EXAM: 03/08/2021 COMPARISON: 02/15/2021 HISTORY: 75-year-old male status post left thorascopic epicardial lead placement TECHNIQUE: Single frontal view of the chest is obtained. FINDINGS: Median sternotomy wires are present with post-CABG clips. Left-sided chest tube in place. Mild subcut aneous emphysema on the left. Bibasilar opacities, right greater than left. Left anterior chest wall AICD generator with right atri al, right ventricular, and coronary sinus leads. There is a trace left apical pneumothorax measuring 3.5 mm. IMPRESSION: 1. Left-sided chest tube in place with a trace 3.5 mm left pneumothorax. 2. Increasing patchy bibasilar opacities, right greater than left, probably atelectasis. Follow-up re commended to exclude infiltrates such as relating to aspiration or pneumonia.
[2021-03-08] MEDS ORDERED: SODIUM CHLORIDE 0.9% 1,000 ML IV SCH (11:30)
[2021-03-08] MEDS ORDERED: ACETAMINOPHEN IV (For NPO) 1,000 MG/100 ML VIAL IVPB ONE (11:34)
[2021-03-08] MEDS ORDERED: ACETAMINOPHEN IV (For NPO) 1,000 MG in EMPTY BAG 1 BAG IVPB SCH (12:00)
[2021-03-08 13:35] LABS: African American GFR (CKD) >90 (>60 ml/min/1.73 sqM); Anion Gap 7 mmol/L; Blood Urea Nitrogen 19 mg/dL (9-20); Calcium 8.6 mg/dL (8.4-10.2); Carbon Dioxide 21 mmol/L (22-30); Chloride 107 mmol/L (98-107); Glucose 147 mg/dL (74-99); Non-African American GFR(CKD) >90 (>60 ml/min/1.73 sqM); Sodium 135 mmol/L (137-145)
[2021-03-08 13:39] LABS: Potassium 4.3 mmol/L (3.5-5.1)
[2021-03-08] MEDS ORDERED: SODIUM CHLORIDE 0.9% 1,000 ML IV ONE (14:29)
[2021-03-08] MEDS: ACETAMINOPHEN IV (For NPO) 1,000 MG in EMPTY BAG 1 BAG IVPB SCH ×2 (15:18→17:20)
[2021-03-08] MEDS: IPRATROPIUM-ALBUTEROL 3 ML NEB IH SCH ×2 (15:36→19:15)
[2021-03-08] MEDS: KETOROLAC 15 MG/ML 1 ML VIAL IVP SCH ×2 (17:18→18:22)
[2021-03-08] MEDS: HEPARIN SODIUM,PORCINE/PF 5,000 UNIT/0.5 ML SYRINGE SQ SCH (17:19)
[2021-03-08] MEDS: traMADol 50 MG TAB PO SCH ×2 (17:20→21:59)
[2021-03-08] MEDS ORDERED: ATORVASTATIN 40 MG TAB PO SCH (21:00)
[2021-03-08] MEDS ORDERED: carvediloL 12.5 MG TAB PO SCH (21:00)
[2021-03-08] MEDS: SACUBITRIL/VALSARTAN 24 MG-26 MG TABLET PO SCH (21:59)
[2021-03-08] MEDS: SOTALOL 80 MG TAB PO SCH (21:59)
[2021-03-08] MEDS ORDERED: ACETAMINOPHEN TAB 500 MG TAB PO PRN (23:00)
[2021-03-09] MEDS: HEPARIN SODIUM,PORCINE/PF 5,000 UNIT/0.5 ML SYRINGE SQ SCH ×3 (00:10→08:52)
[2021-03-09] MEDS: VIT A,C & E-LUTEIN-MINERALS 1 EACH TAB PO SCH ×2 (00:10→10:48)
[2021-03-09] MEDS: KETOROLAC 15 MG/ML 1 ML VIAL IVP SCH ×2 (00:10→06:20)
[2021-03-09 00:31] VITALS: PULSE 60
[2021-03-09 04:39] VITALS: RESP 16
[2021-03-09 07:25] LABS: African American GFR (CKD) >90 (>60 ml/min/1.73 sqM); Anion Gap 6 mmol/L; Blood Urea Nitrogen 21 mg/dL (9-20); Calcium 8.8 mg/dL (8.4-10.2); Carbon Dioxide 26 mmol/L (22-30); Chloride 103 mmol/L (98-107); Glucose 111 mg/dL (74-99); Non-African American GFR(CKD) 87 (>60 ml/min/1.73 sqM); Potassium 4.1 mmol/L (3.5-5.1); Sodium 135 mmol/L (137-145)
--- NOTE | 2021-03-09 07:26 | XR ---
EXAMINATION TYPE: XR chest 1V DATE OF EXAM: 03/09/2021 HISTORY: Shortness of breath. COMPARISON: 03/08/2021 TECHNIQUE: Single view of the chest is submitted. FINDINGS: Demonstrated are scattered senescent parenchymal change. Basilar linear atelectasis. The heart is stable. Dual-lead pacer device. Left-sided chest tube withou t pneumothorax. Hilar and mediastinal structures are within normal limits. Degenerative changes are seen of the dorsal spine. IMPRESSION: 1. Left-sided chest tube without pneumothorax. 2. Basilar linear atelectasis.
[2021-03-09] MEDS ORDERED: carvediloL 6.25 MG TAB PO SCH (07:30)
[2021-03-09 07:31] LABS: Basophils % (A) 0 %; Eosinophils % (A) 0 %; HCT 39.5 % (39.0-53.0); HGB 13.3 gm/dL (13.0-17.5); Lymphocytes # (A) 0.9 k/uL (1.0-4.8); Lymphocytes % (A) 7 %; MCH 32.6 pg (25.0-35.0); MCHC 33.6 g/dL (31.0-37.0); MCV 97.2 fL (80.0-100.0); Monocytes # (A) 0.8 k/uL (0-1.0); Monocytes % (A) 7 %; Neutrophils # (A) 10.2 k/uL (1.3-7.7); Neutrophils % (A) 84 %; Platelet Count 198 k/uL (150-450); RBC 4.06 m/uL (4.30-5.90); WBC 12.1 k/uL (3.8-10.6)
[2021-03-09] MEDS ORDERED: TAMSULOSIN 0.4 MG CAP.ER.24H PO SCH (08:45)
[2021-03-09] MEDS: IPRATROPIUM-ALBUTEROL 3 ML NEB IH SCH ×3 (08:51→16:41)
[2021-03-09] MEDS ORDERED: APIXABAN 5 MG TAB PO SCH (09:00)
[2021-03-09] MEDS ORDERED: ASCORBIC ACID 500 MG TAB PO SCH (09:00)
[2021-03-09] MEDS ORDERED: FUROSEMIDE 20 MG TAB PO SCH (09:00)
[2021-03-09] MEDS ORDERED: NON FORMULARY DRUG (Calcium/Magnesium/Zinc [Calcium-Magnesium-Zinc Tablet] 1 EACH Tablet) PO SCH (09:00)
[2021-03-09] MEDS ORDERED: NON FORMULARY DRUG (Vitamin B Complex [Vitamin B Complex] 1 EACH Capsule) PO SCH (09:00)
[2021-03-09] MEDS ORDERED: NON FORMULARY DRUG (Ubidecarenone [Co Q-10] 100 MG Capsule) PO SCH (09:00)
--- NOTE | 2021-03-09 09:40 | P.PN ---
Subjective Progress Note Date: 03/09/21 Principal diagnosis: Congestive heart failure, left ventricular lead dysfunction, end-of-life biV ICD generator. Past medical history significant for cardiomyopathy with left sided chronic systolic heart failure, history of coronary artery disease with previous coronary artery bypass grafting surgery in 1985, remote history of myocardial infarction, 2 hyperlipidemia, hypertension, ventricular tachycardia with ICD in place and previous radiofrequency ablations. POD #1 Left thoracoscopy with implantation of epicardial bipolar screw in LV lead and replacement of end-of-life biV ICD generator with connection of new LV lead and capping of old LV lead. Postoperative urinary retention requiring straight catheterization, unexpected The patient was seen in follow-up today 03/09/2021 at his bedside on the cardiac stepdown unit. Currently sitting up to the bedside chair, as awake, alert and oriented 3 and is in no acute apparent distress. Currently he denies any complaints of pain or shortness of breath this time. The patient reports he did have some urinary retention this morning requiring straight catheterization with 500 mL of urine drained. Left pleural chest tube remains in place to water seal. No air leak is present. Draining thin serosanguineous drainage with 70 mL output in the last 8 hours and 210 mL output since surgery. Oxygen saturations are 98% on room air. Remote telemetry showing paced rhythm heart rate 60 BPM. Afebrile the last 24 hours. Objective - Vital Signs Vital signs: Vital Signs Temp 97.8 F 03/09/21 04:00 Pulse 60 03/09/21 04:00 Resp 16 03/09/21 04:00 BP 122/59 03/09/21 04:00 Pulse Ox 99 03/09/21 04:00 Intake & Output 03/08/21 03/09/21 03/09/21 18:59 06:59 18:59 Intake Total 1969 210 120 Output Total 520 570 150 Balance 1449 -360 -30 Weight 94.3 kg 95.8 kg Intake: IV 1851 210 Sodium Chloride 0.9% 1, 210 000 ml @ 40 mls/hr IV . Q24H [facility] Rx#:[id number] Oral 118 120 Output: Chest Tube Drainage 70 Chest Tube Left 70 Urine 500 500 150 Straight 450 Estimated Blood Loss 20 - Exam CONSTITUTIONAL: Sitting up to the bedside chair on the cardiac stepdown unit, appears comfortable, cooperative, no apparent acute distress. HEENT: Neck is supple, no JVD, no lymphadenopathy. RESPIRATORY: Lungs sounds essentially clear throughout, diminished to his bilateral bases. Respirations are symmetrical and nonlabored. Currently on room air with oxygen saturations 98%. Strong cough. CARDIOVASCULAR: Regular rhythm and rate. S1 and S2 present, negative for S3, gallop or murmur. Knee-high THIAGO hose and sequential compression devices in place to his bilateral lower extremities. Remote telemetry showing paced rhythm heart rate 60 BPM. GASTROINTESTINAL: Abdomen soft, nontender, nondistended. Active bowel sounds present 4 quadrants. Tolerating diet. No guarding or rigidity. GENITOURINARY: Straight catheterization this a.m. due to urinary retention with 500 mL of urine drained. INTEGUMENTARY: Skin is warm and dry with no evidence of clubbing or cyanosis. Left subclavicular dressing clean, dry and intact. Left chest incisions clean, dry and intact. No drainage or redness is present. NEUROLOGIC: Cranial nerves II through XII intact. No focal deficits. MUSKULOSKELETAL: Able to move all extremities, strength equal bilaterally. PSYCHIATRIC: Alert and oriented to person place and time, appropriate affect, intact judgment and insight. INVASIVE LINES AND TUBES: left pleural chest tubes present and is to water seal. No air leak is present. Draining thin serosanguineous drainage with 70 mL output in the last 8 hours, 210 mL output since surgery. - Labs CBC & Chem 7: 03/09/21 06:57 03/09/21 06:57 Labs: Abnormal Lab Results - Last 24 Hours (Table) 03/08/21 03/08/21 03/09/21 Range/Units 11:07 11:07 06:57 WBC 12.1 H (3.8-10.6) k/uL RBC 4.10 L 4.06 L (4.30-5.90) m/uL Neutrophils # 10.2 H (1.3-7.7) k/uL Lymphocytes # 0.5 L 0.9 L (1.0-4.8) k/uL Sodium 135 L (137-145) mmol/L Carbon Dioxide 21 L (22-30) mmol/L BUN (9-20) mg/dL Glucose 147 H (74-99) mg/dL 03/09/21 Range/Units 06:57 WBC (3.8-10.6) k/uL RBC (4.30-5.90) m/uL Neutrophils # (1.3-7.7) k/uL Lymphocytes # (1.0-4.8) k/uL Sodium 135 L (137-145) mmol/L Carbon Dioxide (22-30) mmol/L BUN 21 H (9-20) mg/dL Glucose 111 H (74-99) mg/dL Assessment and Plan Assessment: 1. Cardiomyopathy with left sided chronic systolic heart failure, status post left thoracoscopy with implantation of epicardial bipolar screw in LV lead and replacement of end-of-life Bi-V ICD generator with connection of new LV lead and capping of old LV lead 2. Left ventricular lead dysfunction 3. History of coronary artery disease with CABG in 1985 4. Remote history of myocardial infarction 5. Hypertension 6. Hyperlipidemia 7. Ventricular tachycardia with ICD in place and previous radiofrequency ablat ions 8. Obstructive sleep apnea with home CPAP use 9. Osteoarthritis 10. Hearing disorder 11. Remote history of tobacco dependence 12. Postoperative urinary retention requiring straight catheterization, unexpected Plan: 1. The patient's home medications have been continued. He was restarted on his Eliquis this morning. 2. His left pleural chest tube was removed without incident. Vaseline impregnated gauze to cover, 4 x 4 gauze to cover and secured with tape. The patient has been instructed to remove the dressing after 48 hours. 3. Encourage use of his incentive spirometry 10 times every hour while awake. 4. Increase activity as tolerated. Out of bed for all meals. 5. Bladder scan every 6 hours and when necessary for urinary retention. If greater than 300 mL of urine straight cath. 6. The patient may be discharged home today if the patient's urine retention resolves. 7. Flomax 0.4 mg by mouth daily started for urinary retention. 8. GI and DVT prophylaxis. 9. Anticipate discharge home within the next 24 hours. 10. A post chest tube removal x-ray will be ordered. 11. More recommendations to follow based on patient's clinical course. Time with Patient: Greater than 30
--- NOTE | 2021-03-09 10:34 | XR ---
EXAMINATION TYPE: XR chest 1V portable DATE OF EXAM: 03/09/2021 HISTORY: Post-chest tube removal COMPARISON: 03/09/2021 TECHNIQUE: Single view of the chest is submitted. FINDINGS: Demonstrated are scattered senescent parenchymal change. Left-sided chest tube has been removed. No sizable left-sided pneumothorax identified. Scattered linear basilar atelectasis. There is no evidence for focal infiltrate. The heart is stable. Hilar and mediastinal structures are within normal limits. Degenerative changes are seen of the dorsal spine. IMPRESSION: 1. Left-sided chest tube has been removed. No sizable left-sided pneumothorax identified. Scattered linear basilar atelectasis.
[2021-03-09] MEDS: SACUBITRIL/VALSARTAN 24 MG-26 MG TABLET PO SCH (10:48)
[2021-03-09] MEDS: SOTALOL 80 MG TAB PO SCH (10:49)
[2021-03-09 10:51] VITALS: TEMP 96.2
--- NOTE | 2021-03-09 12:44 | P.CRDCN ---
History of Present Illness History of present illness: HISTORY OF PRESENTING ILLNESS This is a pleasant 76-year-old male past medical history significant for coronary artery disease status post CABG and PCI, ischemic cardiomyopathy, ventricular tachycardia, biventricular ICD placement, previous radiofrequency ablation, hypertension, hyperlipidemia. He follows in the office with Dr. Piedra. We have been asked to see in consultation for postoperative management. Patient underwent device interrogation 01/2021 which revealed the left ventricul ar lead was nonfunctional and non-capture. On 02/05/2021 patient underwent biventricular ICD interrogation and reprogramming with Dr. Napier. This revealed complete non-capture was noted in the LV lead, it was recommended that patient undergo biventricular ICD generator change epicardial lead placement thoracoscopically. On 03/08/2021, Patient underwent Left thoracoscopy with implantation of epicardial bipolar screw in LV lead and replacement of end-of-life biV ICD generator with connection of new LV lead and capping of old LV lead. Patient is seen and examined at bedside, the chair, no acute distress. He denies any chest pain or shortness of breath. He does report urinary retention and did require straight catheterization with 500 mL of urine removed. Chest x- ray after the procedure revealed left-sided chest tube without pneumothorax. There is a linear atelectasis. His left pleural chest tube was removed this morning by CT surgery. Device interrogation was completed which revealed a normal device working within normal limits. Telemetry reviewed patient showed a paced rhythm with heart rate in the 60s. REVIEW OF SYSTEMS At the time of my exam: CONSTITUTIONAL: Denies fever or chills. CARDIOVASCULAR: Denies chest pain, shortness of breath, orthopnea, PND or palpitations. RESPIRATORY: Denies cough. GASTROINTESTINAL: Denies abdominal pain, diarrhea, constipation, nausea or vomiting. MUSCULOSKELETAL: Some left sided rib pain after chest tube removal NEUROLOGIC: Denies numbness, tingling, headacbe or weakness. ENDOCRINE: Denies fatigue, weight change, polydipsia or polyurina. GENITOURINARY: Denies burning, hematuria or urgency with micturation. HEMATOLOGIC: Denies history of anemia or bleeding. PHYSICAL EXAMINATION Blood pressure 116/62 heart rate 60 afebrile and maintaining oxygen saturation on room air. CONSTITUTIONAL: No apparent distress. HEENT: Head is normocephalic. Pupils are equal, round. Sclerae anicteric. Mucous membranes of the mouth are moist. No JVD. No carotid bruit. CHEST EXAMINATION: Lungs are clear to auscultation. No chest wall tenderness is noted on palpation or with deep breathing. Left sided chest site covered with Mepilex clean and dry and intact. Left chest incisions covered with dressing clean dry intact HEART EXAMINATION: Regular rate and rhythm. S1, S2 heard. Systolic murmur noted ABDOMEN: Soft, nontender. Positive bowel sounds. EXTREMITIES: 2+ peripheral pulses, no lower extremity edema and no calf tenderness. NEUROLOGIC EXAMINATION: Patient is awake, alert and oriented x3. ASSESSMENT Status post left thoracoscopy with implantation of epicardial bipolar screw in LV lead and replacement of end-of-life Bi-V ICD generator Ischemic cardiomyopathy with EF 20-25% Coronary artery disease status post CABG and PCI Hypertension Hyperlipidemia PLAN Continue home cardiac medications. Encourage use of his incentive spirometry Encourage activity as tolerated Patient was started on Flomax, bladder scan every 6 hours/when necessary for urinary retention. Patient follow-up in the office with Dr. Piedra. Nurse Practitioner note has been reviewed, I agree with a documented findings and plan of care. Patient was seen and examined. Past Medical History Past Medical History: Coronary Artery Disease (CAD), Cancer, Heart Failure, Eye Disorder, Hearing Disorder / Deafness, Myocardial Infarction (LA), Osteoarthritis (OA), Pneumonia, Sleep Apnea/CPAP/BIPAP Additional Past Medical History / Comment(s): Hx V-Tach., [place] X2(1989,1994)., Bladder Cancer 3-4 yrs ago., Hiatal hernia. , no C-Pap ., Chronic neck pain., lower back pain, uses cane prn., Floaters right eye., hearing loss right ear., macular degeneration., See [facility] Last Myocardial Infarction Date:: 1994 History of Any Multi-Drug Resistant Organisms: None Reported Past Surgical History: AICD, Back Surgery, Cardiac Ablation, Coronary Bypass/CABG, Orthopedic Surgery, Pacemaker Additional Past Surgical History / Comment(s): Tumor removed from bladder, EP Study, cardioversion/ablation X2 ., CABG 1985. Tube left ear 2007, left rotator cuff repair, pilonidal surgery, bilateral knee arthroscopy, pain clinic procedure. Past Anesthesia/Blood Transfusion Reactions: Previous Problems w/ Anesthesia Additional Past Anesthesia/Blood Transfusion Reaction / Comment(s): Slow to wake up after. Type of Cardiac Device: AICD Device Placement Date:: 04/2013 - [employer] Smoking Status: Unknown if ever smoked - Past Family History Mother Family Medical History: Cancer Additional Family Medical History / Comment(s): Breast cancer. Father Family Medical History: Myocardial Infarction ([place]) Additional Family Medical History / Comment(s): at age 46 from [place]- ( 4 months before pt was born) Medications and Allergies Home Medications Medication Instructions Recorded Confirmed Type Ascorbic Acid [Vitamin C] 1,000 mg PO DAILY 03/10/16 03/08/21 History Atorvastatin [Lipitor] 40 mg PO HS 03/10/16 03/08/21 History Calcium/Magnesium/Zinc 1 tab PO DAILY 03/10/16 03/08/21 History [Xbxrcbh-Adpcyiaoy-Qmvu Tablet] Furosemide [Lasix] 20 mg PO DAILY 03/10/16 03/08/21 History Ubidecarenone [Co Q-10] 100 mg PO DAILY 03/10/16 03/08/21 History Vitamin B Complex 1 cap PO DAILY 08/01/16 03/08/21 History Sotalol [Betapace] 80 mg PO BID #180 tablet 04/24/19 03/08/21 Rx Apixaban [Eliquis] 5 mg PO BID 07/10/20 03/08/21 History Carvedilol [Coreg] 12.5 mg PO HS 08/30/20 03/08/21 History Carvedilol [Coreg] 18.7 mg PO DAILY 08/30/20 03/08/21 History Nitroglycerin [Nitroglycerin 1 spray TRANSLINGU Q5M PRN 02/01/21 03/08/21 History 400MCG [place]] Vit C/E/Zn/Coppr/Lutein/Zeaxan 1 each PO BID 02/01/21 03/08/21 History [Preservision Areds 2 Softgel] Sacubitril/Valsartan [Entresto 24 1 each PO BID 02/28/21 03/08/21 History mg-26 mg Tablet] Allergies Allergy/AdvReac Type Severity Reaction Status Date / Time No Known Allergies Allergy Verified 03/08/21 06:17 Physical Exam Vitals: Vital Signs Temp Pulse Resp BP BP BP Pulse Ox 03/09/21 10:52 60 16 116/62 98 03/09/21 08:00 96.2 F L 60 16 94/50 96 03/09/21 04:00 97.8 F 60 16 122/59 99 03/09/21 02:00 60 18 03/09/21 00:00 60 18 143/62 98 03/08/21 20:00 98.6 F 66 18 118/55 99 03/08/21 17:07 62 18 128/69 98 03/08/21 13:23 60 14 112/60 131/62 99 03/08/21 13:00 60 14 117/66 120/60 98 03/08/21 12:30 60 16 130/71 97 03/08/21 12:00 60 14 117/62 133/67 98 03/08/21 11:44 60 14 134/70 137/67 97 03/08/21 11:28 60 16 121/61 98 03/08/21 11:13 60 16 137/67 99 03/08/21 10:58 60 16 140/67 100 Intake and Output 03/08/21 03/09/21 03/09/21 22:59 06:59 14:59 Intake Total 118 210 120 Output Total 0 570 150 Balance 118 -360 -30 Intake: IV 210 Sodium Chloride 0.9% 1, 210 000 ml @ 40 mls/hr IV . Q24H [facility] [place] Rx#:[id number] Oral 118 120 Output: Chest Tube Drainage 0 70 Chest Tube Left 0 70 Urine 500 150 Straight 450 Other: Weight 94.3 kg 95.8 kg Results 03/09/21 06:57 03/09/21 06:57 CBC 03/08/21 03/09/21 Range/Units 11:07 06:57 WBC 7.9 12.1 H (3.8-10.6) k/uL RBC 4.10 L 4.06 L (4.30-5.90) m/uL Hgb 13.5 13.3 (13.0-17.5) gm/dL Hct 39.1 39.5 (39.0-53.0) % Plt Count 177 198 (150-450) k/uL Comprehensive Metabolic Panel 03/08/21 03/09/21 Range/Units 11:07 06:57 Sodium 135 L 135 L (137-145) mmol/L Potassium 4.3 4.1 (3.5-5.1) mmol/L Chloride 107 103 (98-107) mmol/L Carbon Dioxide 21 L 26 (22-30) mmol/L BUN 19 21 H (9-20) mg/dL Creatinine 0.66 0.80 (0.66-1.25) mg/dL Glucose 147 H 111 H (74-99) mg/dL Calcium 8.6 8.8 (8.4-10.2) mg/dL Current Medications Generic Name Dose Route Start Last Admin Trade Name Freq PRN Reason Stop Dose Admin Acetaminophen 1,000 mg 03/08/21 23:00 03/09/21 10:47 Acetaminophen Tab 500 Mg Tab PO 1,000 mg Q6HR PRN Administration Fever and/ or Mild Pain Albuterol/Ipratropium 3 ml 03/08/21 10:24 Ipratropium-Albuterol 3 Ml Neb IH RT-Q1H PRN Shortness Of Breath Or Wheezing Albuterol/Ipratropium 3 ml 03/08/21 16:00 03/09/21 08:51 Ipratropium-Albuterol 3 Ml Neb IH Not Given RT-QID LETTY Apixaban 5 mg 03/09/21 09:00 03/09/21 08:47 Apixaban 5 Mg Tab PO 5 mg BID LETTY Administration Protocol Ascorbic Acid 1,000 mg 03/09/21 09:00 03/09/21 08:47 Ascorbic Acid 500 Mg Tab PO 1,000 mg DAILY LETTY Administration Atorvastatin Calcium 40 mg 03/08/21 21:00 03/08/21 21:59 Atorvastatin 40 Mg Tab PO 40 mg HS LETTY Administration Bisacodyl 10 mg 03/08/21 10:24 Bisacodyl 10 Mg Supp RECTAL DAILY PRN Constipation Carvedilol 12.5 mg 03/08/21 21:00 03/08/21 21:59 Carvedilol 12.5 Mg Tab PO 12.5 mg HS LETTY Administration Carvedilol 18.75 mg 03/09/21 07:30 03/09/21 06:21 Carvedilol 6.25 Mg Tab PO 18.75 mg AC-BRKFST LETTY Administration Furosemide 20 mg 03/09/21 09:00 03/09/21 08:47 Furosemide 20 Mg Tab PO 20 mg DAILY LETTY Administration Metoclopramide HCl 5 mg 03/08/21 10:24 Metoclopramide 5 Mg/Ml 2 Ml Vial IVP Q4HR PRN Nausea And Vomiting Multivitamins/Minerals 1 each 03/08/21 21:00 03/09/21 10:48 Vit A,C & S-Nidbzi-Wwfkivum 1 Each Tab PO 1 each BID LETTY Administration Ondansetron HCl 4 mg 03/08/21 10:24 Ondansetron 4 Mg/2 Ml Vial IVP Q8HR PRN Nausea And Vomiting Sacubitril/Valsartan 1 each 03/08/21 21:00 03/09/21 10:48 Sacubitril/Valsartan 24 Mg-26 Mg Tablet PO 1 each BID LETTY Administration Sotalol HCl 80 mg 03/08/21 21:00 03/09/21 10:49 Sotalol 80 Mg Tab PO 80 mg BID LETTY Administration Tamsulosin HCl 0.4 mg 03/09/21 08:45 03/09/21 10:48 Tamsulosin 0.4 Mg Cap.Er.24h PO 0.4 mg PC-BRKFST LETTY Administration Intake and Output 03/08/21 03/09/21 03/09/21 22:59 06:59 14:59 Intake Total 118 210 120 Output Total 0 570 150 Balance 118 -360 -30 Intake: IV 210 Sodium Chloride 0.9% 1, 210 000 ml @ 40 mls/hr IV . Q24H [facility] [place] Rx#:[id number] Oral 118 120 Output: Chest Tube Drainage 0 70 Chest Tube Left 0 70 Urine 500 150 Straight 450 Other: Weight 94.3 kg 95.8 kg 03/09/21 06:57 03/09/21 06:57
[2021-03-09 16:20] VITALS: BP 129/64
--- NOTE | 2021-03-09 16:38 | P.DS ---
Providers Date of admission: 03/08/21 05:57 Expected date of discharge: 03/09/21 Attending physician: Kendell Parrish Consults: 03/08/21 10:24 Consult Physician Routine Consulting Provider: Maury Fernandez Consult Reason/Comments: Post Epicardial lead placement with battery change Bi-V cardiac defibrillat Do you want consulting provider notified?: Yes Primary care physician: Natalya Richardson MD Hospital Course: FINAL DIAGNOSIS: 1. Cardiomyopathy with left-sided chronic systolic heart failure, left ventricular lead dysfunction and end-of-life biV ICD generator 2. History of coronary artery disease with previous myocardial infarction and subsequent CABG 3. Hyperlipidemia 4. Hypertension 5. Ventricular tachycardia status post previous ablations and placement of ICD 6. Postoperative acute urinary retention PRINCIPAL PROCEDURE: 1. Left thoracoscopy with implantation of epicardial bipolar screw in LV lead and replacement of end of life biV ICD generator with connection of new LV lead and capping of old LV lead HISTORY OF PRESENT ILLNESS: This is a 76-year-old gentleman who follows with Dr. YI Piedra on an outpatient basis for cardiology as well as Dr. Napier for electrophysiology. This gentleman had previous coronary bypass surgery approximately 12 years ago. He has significant left ventricular dysfunction as well as history of V. tach with biV ICD implanted. The ICD was approaching end-of-life and the left ventricular lead was completely without capture. He had significant exertional dyspnea. He was seen by both Dr. Piedra and Dr. Napier. Recommendations were made for revision of the ICD with new left ventricular lead. Dr. Napier's feelings, given his knowledge of the mapping of the venous drainage of the left ventricle, that there was no access for a second LV lead through a transvenous approach. Subsequently he was referred to Dr. Parrish from cardiothoracic surgery with recommendations for placement of epicardial LV lead with battery change for his biV ICD under thoracoscopic approach. The usual perioperative course was discussed in detail with the patient and his family, all risks and benefits were explained, all questions were answered, and consent was obtained to proceed with surgery. The patient was scheduled for surgery at the earliest possible date. HOSPITAL COURSE: The patient was brought to the hospital on 03/08/2021, taken to the preoperative area, prepared in the usual fashion, and subsequently taken to the operating room where Dr. Parrish placed a bipolar LV lead and end-of-life ICD generator through a left thoracoscopy approach. Upon completion of surgery the patient was extubated and taken to the recovery room for further monitoring. He was eventually transferred to the cardiac stepdown unit for further recovery and monitoring. He remained stable, chest x-ray the following morning was stable and his left pleural chest tube was removed without incident. The patient did have acute urinary retention requiring straight catheterization and initiation of Flomax. He was eventually able to void on his own, he was tolerating oral di et, his pain was controlled, and he was ready to be discharged to home on postoperative day #1. He received written and verbal instruction regarding his medications, activity restrictions, signs and symptoms requiring physician notification, and follow-up appointments. COMPLICATIONS: The patient experienced postoperative urinary retention which was treated accordingly. Patient Condition at Discharge: Stable Plan - Discharge Summary Discharge Rx Participant: No New Discharge Prescriptions: New Acetaminophen Tab [Tylenol] 1,000 mg PO Q6HR PRN tab PRN Reason: Fever and/ or Mild Pain Tamsulosin [Flomax] 0.4 mg PO PC-BRKFST #30 cap.er.24h Continue Atorvastatin [Lipitor] 40 mg PO HS Furosemide [Lasix] 20 mg PO DAILY Ubidecarenone [Co Q-10] 100 mg PO DAILY Calcium/Magnesium/Zinc [Uvqljls-Xmewwcibv-Wpuk Tablet] 1 tab PO DAILY Ascorbic Acid [Vitamin C] 1,000 mg PO DAILY Vitamin B Complex 1 cap PO DAILY Sotalol [Betapace] 80 mg PO BID #180 tablet Apixaban [Eliquis] 5 mg PO BID Carvedilol [Coreg] 12.5 mg PO HS Carvedilol [Coreg] 18.7 mg PO DAILY Nitroglycerin [Nitroglycerin 400MCG [place]] 1 spray TRANSLINGU Q5M PRN PRN Reason: Chest Pain Sacubitril/Valsartan [Entresto 24 mg-26 mg Tablet] 1 each PO BID Vit C/E/Zn/Coppr/Lutein/Zeaxan [Preservision Areds 2 Softgel] 1 each PO BID Discharge Medication List Ascorbic Acid [Vitamin C] 1,000 mg PO DAILY 03/10/16 [History] Atorvastatin [Lipitor] 40 mg PO HS 03/10/16 [History] Calcium/Magnesium/Zinc [Wqffkzs-Bszojlxjg-Klyt Tablet] 1 tab PO DAILY 03/10/16 [History] Furosemide [Lasix] 20 mg PO DAILY 03/10/16 [History] Ubidecarenone [Co Q-10] 100 mg PO DAILY 03/10/16 [History] Vitamin B Complex 1 cap PO DAILY 08/01/16 [History] Sotalol [Betapace] 80 mg PO BID #180 tablet 04/24/19 [Rx] Apixaban [Eliquis] 5 mg PO BID 07/10/20 [History] Carvedilol [Coreg] 12.5 mg PO HS 08/30/20 [History] Carvedilol [Coreg] 18.7 mg PO DAILY 08/30/20 [History] Nitroglycerin [Nitroglycerin 400MCG [place]] 1 spray TRANSLINGU Q5M PRN 02/01/21 [History] Vit C/E/Zn/Coppr/Lutein/Zeaxan [Preservision Areds 2 Softgel] 1 each PO BID 02/01/21 [History] Sacubitril/Valsartan [Entresto 24 mg-26 mg Tablet] 1 each PO BID 02/28/21 [History] Acetaminophen Tab [Tylenol] 1,000 mg PO Q6HR PRN tab 03/09/21 [Rx] Tamsulosin [Flomax] 0.4 mg PO PC-BRKFST #30 cap.er.24h 03/09/21 [Rx] Follow up Appointment(s)/Referral(s): Natalya Richardson MD [Primary Care Provider] - As Needed Leanna Piedra MD [STAFF PHYSICIAN] - 03/28/21 10:45 am (Device clinic follow up at [facility] 03/14/21 @ 10:30) Kendell Parrish MD [STAFF PHYSICIAN] - 03/22/21 9:30 am Activity/Diet/Wound Care/Special Instructions: PATIENT EDUCATION MATERIAL Instructions following a heart rhythm device implant. 1. Keep dressing DRY for 5 DAYS. You may cover the area with Saran or Cling Wrap, prior to a shower. 2. The dressing will be removed in the Device Clinic at [facility]. Absorbable sutures were used to close the wound. 3. Avoid raising the left arm above the shoulder level. 4 week restriction 4. Avoid arm movements, like backscratching, rubbing the head, or pulling on a cord. 4 weeks restriction 5. Gentle range of motion movements of the shoulder, closest to the incision should be performed to avoid a frozen shoulder. (Pendulum exercises of the shoulder) 6. The opposite arm may be used freely. 7. Avoid driving for 7 days. 8. Avoid activities such as golfing, swimming, weed whacking, lifting more than 10 pounds weight, bowling, gymnastics and weight training/lifting. (6 weeks restriction) 9. Activities such as wood chopping with an axe, pull-ups in the gymnasium, power lifting, arc-welding, being close to home induction cooktops will always be a problem. 10. Arm sling is only a reminder not to raise the arm above the head. You do not need to keep the arm completely immobilized. Your free to move the arm and use it and for normal activities. In case of any problems, please call [facility] [place], @ [phone], Attention: Device Clinic Discharge Disposition: HOME SELF-CARE
== END 2021-03-09 18:07 | disposition home or self-care (01) | DRG 227 ==
LOC: 2ORMAIN 03-08 05:57 → 3SCARD 03-08 14:05
PROVIDERS: ADMIT Thoracic Surgery (Cardiothoracic Vascular Surgery); ATTEND Thoracic Surgery (Cardiothoracic Vascular Surgery)
PROC: 0JPT0PZ Removal of Cardiac Rhythm Related Device from Trunk Subcutaneous Tissue and Fascia, Open Approach (ICD-10-PCS; 2021-03-08)
PROC: 02HL3KZ Insertion of Defibrillator Lead into Left Ventricle, Percutaneous Approach (ICD-10-PCS; 2021-03-08)
PROC: 5A2204Z Restoration of Cardiac Rhythm, Single (ICD-10-PCS; 2021-03-08)
PROC: 0JH609Z Insertion of Cardiac Resynchronization Defibrillator Pulse Generator into Chest Subcutaneous Tissue and Fascia, Open Approach (ICD-10-PCS; principal; 2021-03-08 07:30)
DX: T82.110A Breakdown (mechanical) of cardiac electrode, initial encounter (principal); I50.22 Chronic systolic (congestive) heart failure; I47.2 Ventricular tachycardia; J98.11 Atelectasis; I11.0 Hypertensive heart disease with heart failure; Z95.1 Presence of aortocoronary bypass graft; I25.2 Old myocardial infarction; E78.5 Hyperlipidemia, unspecified; G47.33 Obstructive sleep apnea (adult) (pediatric); M19.90 Unspecified osteoarthritis, unspecified site; Z87.891 Personal history of nicotine dependence; R33.9 Retention of urine, unspecified; I25.5 Ischemic cardiomyopathy; I25.10 Atherosclerotic heart disease of native coronary artery without angina pectoris; Z85.51 Personal history of malignant neoplasm of bladder; H91.91 Unspecified hearing loss, right ear; Z95.810 Presence of automatic (implantable) cardiac defibrillator; H35.30 Unspecified macular degeneration; Z79.01 Long term (current) use of anticoagulants; Z82.49 Family history of ischemic heart disease and other diseases of the circulatory system; Z80.3 Family history of malignant neoplasm of breast; Z79.899 Other long term (current) drug therapy
CPT/HCPCS: 71045; 80048; 85025; 86850; 86900; 86901

== ENCOUNTER → 2021-05-22 | Outpatient (CLI) | payer MEDICARE ==
[2021-05-22 13:44] LABS: HCT 39.7 % (39.0-53.0); HGB 13.2 gm/dL (13.0-17.5); MCH 32.4 pg (25.0-35.0); MCHC 33.2 g/dL (31.0-37.0); MCV 97.8 fL (80.0-100.0); Platelet Count 185 k/uL (150-450); RBC 4.07 m/uL (4.30-5.90); RDW 13.1 % (11.5-15.5); WBC 7.1 k/uL (3.8-10.6)
[2021-05-22 13:48] LABS: African American GFR (CKD) >90 (>60 ml/min/1.73 sqM); Anion Gap 6 mmol/L; Blood Urea Nitrogen 17 mg/dL (9-20); Carbon Dioxide 29 mmol/L (22-30); Chloride 104 mmol/L (98-107); Non-African American GFR(CKD) 84 (>60 ml/min/1.73 sqM); Potassium 4.7 mmol/L (3.5-5.1); Sodium 139 mmol/L (137-145)
== END | disposition home or self-care (01) ==
LOC: LABPAT 13:10
PROVIDERS: ATTEND Internal Medicine Clinical Cardiac Electrophysiology
DX: Z01.812 Encounter for preprocedural laboratory examination (principal); I25.5 Ischemic cardiomyopathy
CPT/HCPCS: 80051; 82565; 84520; 85027

== ENCOUNTER → 2021-06-19 | Day surgery (SDC) | payer MEDICARE ==
[2021-06-18 08:32] VITALS: BMI 29.1
[~2021-06-19] MED LIST changes: -IOPAMIDOL-370 50ML BTL INJ ONE; +LACTATED RINGERS 1,000 ML IV SCH; +LIDOCAINE 1% INJ 10MG/ML (20 ML MDV) ONE
[2021-06-19 07:06] VITALS: RESP 16; TEMP 98.7
[2021-06-19 07:09] LABS: Glucose,Whole Blood 112 mg/dL (75-99)
--- NOTE | 2021-06-19 08:49 | P.EPPROC ---
- EP Procedure Note Electrophysiology Procedure Note: Diagnosis Severe cardio myopathy Non-capture of the LV lead in the coronary veins due to high thresholds Recent placement of an epicardial LV lead Patient complains of feeling worse after LV lead placement, worsening heart failure Procedures #1. Cine fluoroscopy of the leads Right atrial and RV ICD lead in stable position Epicardial LV lead in good position posterior bilaterally #2. Cine fluoroscopy of the diaphragm The patient was last take deep breaths and normal movement of the diaphragm noted during inspiration and expiration No evidence for phrenic nerve paresis #3. Interrogation of the biventricular ICD, [employer] The Bi V ICD, [employer], was interrogated Atrial pacing threshold 0.75 V at 0.7 ms, P waves 2.5 mV and pacing impedance 430 ohms RV pacing threshold 4.25 V at 0.5 ms, R waves 8.8 mV and pacing impedance 560 ohms High-voltage impedance 63 ohms High pacing thresholds in the epicardial LV lead noted This was reprogrammed to 7.5 V at 1.3 ms The patient's EKG was observed on the progress system at this programmed level Intermittent loss of LV capture was noted at 7.5 V at 1.3 ms, with a resultant RV pacing This explains his worsening heart failure symptoms after the procedure #4. The device was reprogrammed LV pacing was turned off permanently The device was reprogrammed to DDD R mode with a long AV delay to avoid RV pacing Appropriate antitachycardia pacing cardioversion defibrillations reprogrammed First cardioversion and defibrillation at 36 J DFT testing was not performed Recommend DDDR pacing with a long AV delay to avoid RV pacing, VIP mode Epicardial LV lead off, permanently Intracardiac LV lead also had non-capture at high outputs, prompting epicardial LV lead placement Unfortunately the epicardial LV lead has the exact same issue Non-capture of the LV lead was also an unintentional RV only pacing with worseni ng heart failure symptoms Maximum medical treatment for heart failure This was explained to the patient
--- NOTE | 2021-06-19 08:56 | P.PRLE ---
RE: ColumbaSarkis Dear Dano Sarkis Waterman was brought to the EP lab for biventricular ICD interrogation, reprogramming if needed and DFT testing The patient has been complaining of increasing shortness of breath and worsening symptoms after epicardial LV lead placement Cinefluoroscopy of the left diaphragm revealed normal diaphragmatic motion with inspiration and expiration High outputs were noted for the LV epicardial lead, similar to the endocardial LV lead When the voltages programmed to 7.5 V at 1.3 ms, even then, intermittent loss of capture with intermittent RV pacing was noted This explains his worsening heart failure symptoms after epicardial lead placement with unintentional RV only pacing as a result of loss of capture in the LV lead despite high outputs I had a detailed discussion with Mr. Waterman I would recommend that this LV epicardial lead pacing function returned off permanently I have reprogrammed the device to DDDR mode with a long AV delay to avoid RV pacing Maximum medical treatment for heart failure to continue Thank you for entrusting me with the care of the patient Warm regards Sincerely Mark Napier
[2021-06-19 09:53] VITALS: BP 132/65; PULSE 60
== END | disposition home or self-care (01) ==
LOC: CATHEP 06:29
PROVIDERS: ATTEND Internal Medicine Clinical Cardiac Electrophysiology
DX: G72.9 Myopathy, unspecified (principal); Z20.822 Contact with and (suspected) exposure to COVID-19
CPT/HCPCS: 33263; 76000; 87635; J2001

== ENCOUNTER → 2021-12-05 | Outpatient (CLI) | payer MEDICARE | END | disposition home or self-care (01) | LOC: LABWHC1 14:43 | PROVIDERS: ATTEND Radiology Radiation Oncology | DX: C61 Malignant neoplasm of prostate (principal) | CPT/HCPCS: 36415; 84153 ==

== ENCOUNTER → 2022-03-27 | Outpatient (CLI) | payer MEDICARE ==
[2022-03-27 19:00] LABS: African American GFR (CKD) 51.4 (60.0-200.0); Anion Gap 8.2 mmol/L (10.00-18.00); BUN/Creat Ratio 16.51 Ratio (12.00-20.00); Blood Urea Nitrogen 24.6 mg/dL (9.0-27.0); Calcium 9.2 mg/dL (8.7-10.3); Carbon Dioxide 28.7 mmol/L (20.0-27.5); Non-African American GFR(CKD) 44.3 (60.0-200.0); Potassium 4.9 mmol/L (3.5-5.5)
[2022-03-27 19:16] LABS: MCH 33.2 pg (27.0-32.0); MCHC 34.3 g/dL (32.0-37.0); NRBC Per 100 WBC 0 /100 WBCS (0.0-0.0); Platelet Count 189 X 10*3/uL (140-440); RBC 3.61 X 10*6/uL (4.40-5.60); RDW 13.8 % (11.5-14.5); WBC 6.06 X 10*3/uL (4.50-10.00)
== END | disposition home or self-care (01) ==
LOC: LABPAT 13:31
PROVIDERS: ATTEND Urology
DX: Z01.812 Encounter for preprocedural laboratory examination (principal); C61 Malignant neoplasm of prostate
CPT/HCPCS: 80048; 85027

== ENCOUNTER → 2022-04-09 | Outpatient (CLI) | payer MEDICARE ==
[2022-04-09 15:18] LABS: African American GFR (CKD) 77.5 (60.0-200.0); Anion Gap 9.6 mmol/L (10.00-18.00); Blood Urea Nitrogen 21.2 mg/dL (9.0-27.0); Calcium 9.6 mg/dL (8.7-10.3); Carbon Dioxide 28.8 mmol/L (20.0-27.5); Non-African American GFR(CKD) 66.9 (60.0-200.0)
== END | disposition home or self-care (01) ==
LOC: LABWHC1 10:58
PROVIDERS: ATTEND Internal Medicine Interventional Cardiology
DX: I50.23 Acute on chronic systolic (congestive) heart failure (principal)
CPT/HCPCS: 36415; 80048

== ENCOUNTER 2022-06-03 05:44 | Day surgery (SDC) | payer MEDICARE ==
[2022-06-03] MEDS ORDERED: SODIUM CHLORIDE 0.9% 1,000 ML IV SCH (06:05)
[2022-06-03 06:39] LABS: African American GFR (CKD) >90 (>60 ml/min/1.73 sqM); Anion Gap 9 mmol/L; Blood Urea Nitrogen 27 mg/dL (9-20); Calcium 8.6 mg/dL (8.4-10.2); Carbon Dioxide 26 mmol/L (22-30); Chloride 106 mmol/L (98-107); Glucose 95 mg/dL (74-99); Non-African American GFR(CKD) 79 (>60 ml/min/1.73 sqM); Potassium 4.5 mmol/L (3.5-5.1); Sodium 141 mmol/L (137-145)
[2022-06-03] MEDS ORDERED: SODIUM CHLORIDE 0.9% 500 ML 500 ML IV ONE (07:05)
[2022-06-03 07:08] VITALS: RESP 16; TEMP 97.5
[2022-06-03] MEDS ORDERED: IOPAMIDOL-370 50ML BTL INJ ONE (07:20)
--- NOTE | 2022-06-03 07:49 | P.EPPROC ---
- EP Procedure Note Electrophysiology Procedure Note: Diagnosis Congestive heart failure with ischemic cardio myopathy High thresholds in the LV veins, non-capture of the LV lead High thresholds epicardially, non-capture of the epicardial LV lead The plan is to attempt left bundle pacing for heart failure management Left upper extremity venogram 15 mL every dye injected and of the left arm Patent left subclavian and axillary venous system Cinefluoroscopy of the leads revealed atrial lead in stable position RV ICD lead in stable position LV lead in stable position Epicardial LV lead noted No fractures or breaks noted Plan Proceed with alternate site LV pacing with a left bundle lead as scheduled on July, Discussed the patient
[2022-06-03 13:33] VITALS: BP 118/69; PULSE 61
== END 2022-06-03 08:42 | disposition home or self-care (01) ==
LOC: CATHEP 05:44
PROVIDERS: ATTEND Internal Medicine Clinical Cardiac Electrophysiology
DX: I50.9 Heart failure, unspecified (principal); I25.5 Ischemic cardiomyopathy
CPT/HCPCS: 36005; 75820; 80048; Q9967

== ENCOUNTER → 2022-07-10 | Outpatient (CLI) | payer MEDICARE ==
[2022-07-10 18:59] LABS: HGB 11.7 g/dL (13.0-17.0); MCH 31.8 pg (27.0-32.0); MCHC 31.6 g/dL (32.0-37.0); MCV 100.5 fL (80.0-97.0); NRBC Per 100 WBC 0 /100 WBCS (0.0-0.0); Platelet Count 214 X 10*3/uL (140-440); RBC 3.68 X 10*6/uL (4.40-5.60); RDW 14.6 % (11.5-14.5)
[2022-07-10 19:15] LABS: African American GFR (CKD) 82.2 (60.0-200.0); Anion Gap 8.7 mmol/L (10.00-18.00); Blood Urea Nitrogen 22.5 mg/dL (9.0-27.0); Carbon Dioxide 27.4 mmol/L (20.0-27.5); Non-African American GFR(CKD) 70.9 (60.0-200.0); Potassium 4.8 mmol/L (3.5-5.5)
== END | disposition home or self-care (01) ==
LOC: LABPAT 10:57
PROVIDERS: ATTEND Internal Medicine Clinical Cardiac Electrophysiology
DX: Z01.812 Encounter for preprocedural laboratory examination (principal); I25.5 Ischemic cardiomyopathy; I44.7 Left bundle-branch block, unspecified
CPT/HCPCS: 80051; 82565; 84520; 85027

== ENCOUNTER 2022-07-15 08:12 | Day surgery (SDC) | payer MEDICARE ==
[~2022-07-15 08:12] MED LIST changes: +LIDOCAINE 1% (10MG/ML) FOR IV START INTRADERMA PRN; -LIDOCAINE 1% INJ 10MG/ML (20 ML MDV) ONE; +ceFAZolin 1 GM in SODIUM CHLORIDE 0.9% IRRIG BTL 250 ML IRRIGATION PRN
[2022-07-15] MEDS ORDERED: VANCOMYCIN 1,400 MG in SODIUM CHLORIDE 0.9% 250 ML IVPB ONE (08:33)
[2022-07-15] MEDS ORDERED: VANCOMYCIN 1,500 MG in SODIUM CHLORIDE 0.9% 500 ML 500 ML IVPB ONE (08:45)
[2022-07-15 09:04] LABS: Potassium 5.2 mmol/L (3.5-5.1)
[2022-07-15] MEDS ORDERED: MIDAZOLAM 2 MG/2 ML VIAL ONE (10:55)
[2022-07-15] MEDS ORDERED: FUROSEMIDE 10 MG/ML 2 ML VIAL ONE (10:55)
[2022-07-15] MEDS ORDERED: ePHEDrine 50 MG/ML 1 ML VIAL ONE (10:55)
[2022-07-15] MEDS ORDERED: fentaNYL (PF) 50 MCG/ML 2 ML AMP ONE (10:55)
[2022-07-15] MEDS ORDERED: PROPOFOL 10 MG/ML 20 ML VIAL IV ONE (10:55)
[2022-07-15] MEDS ORDERED: LIDOCAINE 2% INJ 20 MG/ML (2 ML VIAL) ONE (10:55)
[2022-07-15] MEDS ORDERED: LIDOCAINE 1% INJ 10MG/ML (30 ML VIAL-PF) SQ ONE ×2 (11:52→11:54)
[2022-07-15] MEDS ORDERED: ACETAMINOPHEN TAB 325 MG TAB PO PRN (13:30)
[2022-07-15] MEDS ORDERED: SODIUM CHLORIDE 0.9% 500 ML 500 ML IV ONE (13:38)
--- NOTE | 2022-07-15 13:58 | P.EPPROC ---
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 Written informed consent was obtained prior to the procedure. The left shoulder area was prepped and draped as a protocol. IV antibiotics including IV vancomycin administered An incision was made medial to the previous surgical site and carried down to l evel of the generator The generator was explanted, [employer] Un[employer] Assura model #3357-40C, [employer]-D Pocket revision was performed and partial capsulectomy was performed The epicardial LV lead and the endocardial LV lead was firmly secured to the tissue and could not be extracted Both leads were interrogated Both leads had high thresholds of greater than 4 V at 0.5 ms in the epicardial lead had even higher thresholds and LV epicardial lead Both leads were cut and capped at the end of the procedure the ms secured to the pectoralis muscle Axillary vein access obtained and the second rib level The left bundle/His bundle sheath was placed in the central circulation The [employer] model #3830-lead was positioned first at the level of the his Selective His bundle capture was obtained but with a left bundle branch block morphology The left common did not normalize with His bundle pacing The lead was then moved to the left bundle area and screwed in into the septum right into the left bundle Right bundle branch block pattern obtained, typical However stim-V6 time was 190 ms consistent with extensive scarring in the LV myocardium However this was clearly left bundle selective pacing with unipolar pacing Excellent thresholds of 0.7 V at 0.5 ms noted The sheath was removed The lead was secured to the pectoralis muscle The lead was connected to the old generator, [employer] biventricular ICD device, [employer] model #3357-40C Left bundle pacing was tested at several AV delays, to evaluate preferential conduction down the left bundle, given dilated LV conduction time in this patient Preferential conduction down the left bundle was noted only when the paced AV delay was 180 ms or less The device was then programmed with an AV delay of 180 ms to promote preferential left bundle conduction Increase procedures services on account of pocket revision, partial capsulectomy, interrogation of the endocardial and epicardial LV leads, cutting and capping these LV leads Patient tolerated the procedure well without any acute complications He was programmed to Atrial pace-Left bundle pace (unipolar) with an AV delay of 180 ms, with RV pacing 80 ms after left bundle pacing
[2022-07-15] MEDS ORDERED: ACETAMINOPHEN IV (For NPO) 1,000 MG in EMPTY BAG 1 BAG IVPB ONE (14:15)
[2022-07-15 15:18] VITALS: RESP 16; TEMP 97.8
--- NOTE | 2022-07-15 15:49 | XR ---
EXAMINATION TYPE: XR chest 1V portable DATE OF EXAM: 07/15/2022 HISTORY: Shortness of breath. COMPARISON: None. TECHNIQUE: Single view of the chest is submitted. FINDINGS: Demonstrated are scattered senescent parenchymal change. There is no evidence for focal infiltrate. The heart is stable. Pacer device is unchanged. Hilar and mediastinal structures are within normal limits. Degenerative changes are seen of the dorsal spine. 03/09/2021 IMPRESSION: 1. Chronic changes without evidence for acute pulmonary disease.
[2022-07-15 18:06] VITALS: BP 127/70; PULSE 64
== END 2022-07-15 18:32 | disposition home or self-care (01) ==
LOC: CATHEP 08:12 → 6NMEDSUR 13:42 → CATHEP 18:32
PROVIDERS: ATTEND Internal Medicine Clinical Cardiac Electrophysiology
DX: I25.5 Ischemic cardiomyopathy (principal); I11.0 Hypertensive heart disease with heart failure; I50.812 Chronic right heart failure; I45.2 Bifascicular block; Z86.79 Personal history of other diseases of the circulatory system; I25.10 Atherosclerotic heart disease of native coronary artery without angina pectoris; E78.5 Hyperlipidemia, unspecified; F17.210 Nicotine dependence, cigarettes, uncomplicated; Z79.01 Long term (current) use of anticoagulants; Z79.02 Long term (current) use of antithrombotics/antiplatelets; Z79.891 Long term (current) use of opiate analgesic; Z79.899 Other long term (current) drug therapy; G47.33 Obstructive sleep apnea (adult) (pediatric); Z99.89 Dependence on other enabling machines and devices; J90 Pleural effusion, not elsewhere classified; M19.90 Unspecified osteoarthritis, unspecified site; Z85.51 Personal history of malignant neoplasm of bladder; Z95.1 Presence of aortocoronary bypass graft; Z98.890 Other specified postprocedural states
CPT/HCPCS: 33224; 33225; 83880; 80048; 71045; J2250; J3370; J1940; J0690; J2001 ×2; J3010; J0131; J2704

== ENCOUNTER → 2022-07-24 | Outpatient (CLI) | payer MEDICARE | END | disposition home or self-care (01) | LOC: LABWHC1 14:48 | PROVIDERS: ATTEND Radiology Radiation Oncology | DX: C61 Malignant neoplasm of prostate (principal); R35.1 Nocturia | CPT/HCPCS: 36415; 84153 ==

== ENCOUNTER → 2022-07-31 | Outpatient (CLI) | payer MEDICARE ==
[2022-07-31 15:48] LABS: African American GFR (CKD) 78.4 (60.0-200.0); Anion Gap 8.5 mmol/L (10.00-18.00); BUN/Creat Ratio 20.38 Ratio (12.00-20.00); Blood Urea Nitrogen 21.4 mg/dL (9.0-27.0); Calcium 9.3 mg/dL (8.7-10.3); Carbon Dioxide 27.3 mmol/L (20.0-27.5); Non-African American GFR(CKD) 67.7 (60.0-200.0); Potassium 4.9 mmol/L (3.5-5.5)
== END | disposition home or self-care (01) ==
LOC: LABWHC1 09:09
PROVIDERS: ATTEND Internal Medicine Interventional Cardiology
DX: I50.9 Heart failure, unspecified (principal); I25.10 Atherosclerotic heart disease of native coronary artery without angina pectoris
CPT/HCPCS: 36415; 80048

== ENCOUNTER → 2022-08-27 | Outpatient (CLI) | payer MEDICARE ==
--- NOTE | 2022-08-27 16:01 | US ---
EXAMINATION TYPE: US venous doppler duplex LE LT DATE OF EXAM: 08/27/2022 3:33 PM COMPARISON: US 2019 CLINICAL HISTORY: M79.89 SWELLING LEFT LOWER EXT. Swelling of left leg. No hx of DVT. Patient is on e liquis. Hx of left vein stripping in 1985. SIDE PERFORMED: Left TECHNIQUE: The lower extremity deep venous system is examined utilizing real time linear array sonog subha with graded compression, doppler sonography and color-flow sonography. VESSELS IMAGED: Common Femoral Vein Deep Femoral Vein Greater Saphenous Vein * Femoral Vein Popliteal Vein Small Saphenous Vein * Proximal Calf Veins (* superficial vessels) Left Leg: No evidence of DVT in veins imaged. IMPRESSION: No visualized deep venous thrombosis of the left lower extremity.
== END | disposition home or self-care (01) ==
LOC: RADUSWWP 15:11
PROVIDERS: ATTEND Family Medicine
DX: M79.89 Other specified soft tissue disorders (principal)

== ENCOUNTER → 2022-11-06 | Outpatient (CLI) | payer MEDICARE ==
[2022-11-06 18:38] LABS: African American GFR (CKD) 74.1 (60.0-200.0); Anion Gap 13.1 mmol/L (10.00-18.00); BUN/Creat Ratio 25.82 Ratio (12.00-20.00); Blood Urea Nitrogen 28.4 mg/dL (9.0-27.0); Calcium 9.7 mg/dL (8.7-10.3); Carbon Dioxide 26.9 mmol/L (20.0-27.5); Potassium 4.3 mmol/L (3.5-5.5)
== END | disposition home or self-care (01) ==
LOC: LABWHC1 12:25
PROVIDERS: ATTEND Nurse Practitioner
DX: I10 Essential (primary) hypertension (principal); I25.10 Atherosclerotic heart disease of native coronary artery without angina pectoris
CPT/HCPCS: 36415; 80048

== ENCOUNTER → 2022-11-20 | Outpatient (CLI) | payer MEDICARE | END | disposition home or self-care (01) | LOC: LABWHC1 11:11 | PROVIDERS: ATTEND Radiology Radiation Oncology | DX: C61 Malignant neoplasm of prostate (principal); Z95.810 Presence of automatic (implantable) cardiac defibrillator; R35.1 Nocturia | CPT/HCPCS: 36415; 84153 ==